=== PATIENT | male | born 1970 | race Caucasian/White ===

== ENCOUNTER 2022-07-27 07:59 | Inpatient (IN) | payer OTHER, SELFPAY ==
[2022-07-27] VITALS (28 sets, daily range): BP systolic 88–131; BP diastolic 55–92; PULSE 46–98; RESP 14–20; TEMP 36–37.1; O2SAT 94–100; BMI 21.4
--- NOTE | 2022-07-27 08:11 | RAD_ITS ---
STUDY: X-RAY CHEST REASON FOR EXAM: Male, 52 years old. Chest pain. Weakness. TECHNIQUE: Single AP portable view of the chest. COMPARISON: None. FINDINGS: EKG electrodes are seen. The lungs are clear and expanded. There is no demonstrated pleural abnormality. Normal size heart. Normal mediastinum and zi. Normal visualized pulmonary arteries. Normal visualized aortic arch and descending thoracic aorta. Normal visualized thoracic spine. Normal visualized ribs, clavicles, and shoulders. There is no demonstrated abnormality of the visualized soft tissue structures of the upper abdomen. RAD/Chest 1 View (Portable) IMPRESSION: Normal x-ray examination of the chest. Electronically Signed: Zheng Thomas MD at 8:29 EST ,
--- NOTE | 2022-07-27 08:14 | ED.VIS.CHEST ---
HPI History of Present Illness Chief Complaint: Weakness Narrative Narrative: 52-year-old male presenting with chest pain. He states this started while he was walking his dog. He has not had chest pain like this before. He describes it as chest pressure which radiates to his back between his shoulder blades and also down his bilateral arms with the left arm being more symptomatic than the right. He feels generally weak. He states he does not have any shortness of breath. No fever, chills, cough. He states he does not have any medical problems that he knows of but does not see a doctor regularly. Patient last was seen for a syncopal episode in 2014. At that point he states he was evaluated for cardiac source and states his work-up was normal. Patient does not believe his family has significant history of cardiac disease. Patient does report that he is a smoker. No history of DVT/PE. PFSH PFSH Home Medications Flonase 1 inh NASAL QHS 07/27/22 [History Last Taken Unknown] Allergy/AdvReac Type Severity Reaction Status Date / Time No Known Allergies Allergy Verified 07/27/22 08:04 Surgical History Hx of appendectomy Previous back surgery Social History Smoking Status: Current every day smoker tobacco type: cigarettes ROS ROS ED Constitutional Constitutional ED: Denies chills or fever(s) Eyes Eyes: Denies blurry vision or change in vision ENT ENT ED: Denies rhinorrhea or sore throat Cardiovascular Cardiovascular: Reports chest pain Respiratory/Chest Respiratory/Chest: Denies cough or dyspnea Gastrointestinal Gastrointestinal: Denies abdominal pain Genitourinary Genitourinary ED: Denies dysuria or hematuria Musculoskeletal Musculoskeletal: Denies arthralgias or back pain Integumentary Denies abscess or Abrasions Neurologic Neurologic: Denies headache(s) or paresthesias Psychiatric Psychiatric: Denies anxiety or depression EXAM Physical Exam Const Vital Signs: 07/27/22 08:00 07/27/22 08:05 07/27/22 08:03 Temperature 96.8 F L 96.8 F L Temperature Source Oral Oral Pulse Rate 54 L 54 L Respiratory Rate 16 16 Respiratory Effort Normal Non-Labored Respiratory Pattern Normal Blood Pressure 117/81 H 117/81 H Blood Pressure Mean 93 93 Pulse Ox 100 100 Oxygen Delivery Method Room Air Room Air 07/27/22 08:15 07/27/22 08:22 07/27/22 08:27 Temperature Temperature Source Pulse Rate 51 L 52 L Respiratory Rate Respiratory Effort Respiratory Pattern Blood Pressure 119/81 H 110/72 Blood Pressure Mean Pulse Ox 100 Oxygen Delivery Method Room Air 07/27/22 08:35 Temperature Temperature Source Pulse Rate 49 L Respiratory Rate Respiratory Effort Respiratory Pattern Blood Pressure 99/68 Blood Pressure Mean Pulse Ox Oxygen Delivery Method Positive well nourished General Appearance ED: NAD; Negative for pallor HEENT Reports TM's clear and moist mucous membranes Tympanic Membrane ED: Yes TM's clear Eyes PERRL and EOMs intact bilaterally Neck no lymphadenopathy Chest Wall inspection of chest normal and palpation of chest normal Resp normal respiratory effort and clear to auscultation bilaterally Auscultation: Negative for rales, rhonchi or wheezes Cardio regular rate and regular rhythm GI normal to inspection, nondistended, normoactive bowel sounds Extremity normal to inspection Neuro oriented x3 and CN's II-XII intact bilaterally Sensorium / Orientation: awake and alert Motor Exam: strength 5/5 throughout Psych mental status grossly normal Skin no rashes or lesions noted and no wounds General Skin Exam: Negative for jaundice or pallor Heart Score History: Highly Suspicious ECG: Normal Age: >45 - <65 years Risk Factors: 1 or 2 Risk Factors Troponin: </= Normal Limit Score: 4 MDM MDM MDM Narrative Medical decision making narrative: Patient presenting with chest pain which started prior to arrival. He states he was out walking his dog when this occurred. He is states he was diaphoretic and feels generally weak. The chest pressure radiates to his back and down his bilateral arms. EKG obtained on arrival shows sinus bradycardia with a ventricular rate of 56 bpm. There are nonspecific ST-T wave abnormalities. The EKG did interpret this as acute STEMI so I spoke with Dr. Lowe who will review the EKG. Patient had return of his pain while I was examining him and I obtained another EKG which was also sinus bradycardia with a ventricular rate of 58 bpm. This appears to be no significant change from his initial EKG. chest x-ray on my interpretation shows no acute cardiopulmonary process and the radiologist interprets this and agrees patient was given nitroglycerin trial to see if this helps his pain. Patient improvement of pain with nitroglycerin. CBC and BMP unremarkable. High-sensitivity troponin is 7. HEART score of 4. Impression: 1. Chest pain Lab Data Attestation: I reviewed the patient's lab results. Labs: Laboratory Results - last 24 hr 07/27/22 07/27/22 08:00 08:00 WBC 10.1 RBC 5.41 Hgb 16.8 H Hct 50.1 MCV 92.6 MCH 31.1 MCHC 33.5 RDW Std Deviation 45.3 H RDW Coeff of Heaven 13.3 Plt Count 335 MPV 10.0 Immature Gran % (Auto) 0.300 Neut % (Auto) 43.4 L Lymph % (Auto) 41.0 Andrews % (Auto) 8.2 Eos % (Auto) 6.4 H Baso % (Auto) 0.7 Absolute Neuts (auto) 4.4 Absolute Lymphs (auto) 4.14 Nucleated RBC % 0 Sodium 140 Potassium 3.9 Chloride 107 Carbon Dioxide 28.0 Anion Gap 5 BUN 13 Creatinine 1.19 Estim Creat Clear Calc 69.64 Est GFR (MDRD) Af Amer 82 Est GFR (MDRD) Non-Af 68 BUN/Creatinine Ratio 10.9 Glucose 143 H Calcium 9.7 Troponin I High Sens 7 Radiography Diagnostic Testing: Clinical Impression(s) from Imaging Studies Chest X-Ray 07/27/22 08:11 IMPRESSION: Normal x-ray examination of the chest. Electronically Signed: Zheng Thomas MD at 8:29 EST , Discharge Plan Triage Chief Complaint: Weakness ED Provider: Yo Nova Dx/Rx/DC Orders Prescriptions: No Action Flonase 1 inh NASAL QHS Primary Care Provider: URBAN MARTINES Referrals: Irvin Loo DO [Non-Staff] -
[2022-07-27] MEDS: Aspirin 81 MG TAB.CHEW 324 MG PO (08:17)
[2022-07-27 08:20] LABS: Absolute Lymphocyte Count 4.14 X10^3/uL (0.83-4.51); Absolute Neutrophil Count 4.4 X10^3/uL (2.0-7.7); Basophil# 0.07 X10^3/uL; Basophil% 0.7 % (0-1); Eosinophil# 0.65 X10^3/uL; Eosinophils% 6.4 % (0-5); Hematocrit 50.1 % (40-54); Hemoglobin 16.8 g/dL (13.0-16.5); Lymphocyte # 4.14 X10^3/ul (0.83-4.51); Mean Corp Hgb Conc 33.5 g/dL (32-36); Mean Corpuscular Hgb 31.1 pg (27.0-32.0); Mean Corpuscular Volume 92.6 fL (80-94); Monocyte# 0.83 X10^3/uL; Monocyte% 8.2 % (0-10); NRBC Flagged by Analyzer 0 % (0-5); Neutrophil # 4.37 X10^3/uL (2.7-7.7); Neutrophil % 43.4 % (47-70); Platelet Count 335 K/mm3 (150-450); RBC Distribution Width CV 13.3 % (11.6-14.6); RBC Distribution Width SD 45.3 fl (35.1-43.9); Red Blood Count 5.41 M/mm3 (4.6-6.2); White Blood Count 10.1 K/mm3 (4.4-11.0)
[2022-07-27] MEDS: Nitroglycerin SL (ED/IMG/CATH) 0.4 MG TABLET SL ×3 (08:22→08:35)
[2022-07-27 08:37] LABS: Anion Gap 5 (5-15); BUN 13 mg/dL (7-18); BUN/Creat Ratio 10.9 RATIO (10-20); Calcium,Total 9.7 mg/dL (8.5-10.1); Chloride 107 mmol/L (98-107); Creatinine, Serum 1.19 mg/dL (0.70-1.30); EST Glomerular Filtration Rate 68 mL/min (>60); Est Glom Filt Rate - Afr Amer 82 mL/min (>60); Estimated Creatinine Clearance 69.64 ml/min; Glucose 143 mg/dL (74-106); Potassium 3.9 mmol/L (3.5-5.1); Sodium Level 140 mmol/L (136-145); Troponin-I HS (w/2H Reflex) 7 pg/mL (3.0-78.0)
[2022-07-27] MEDS: 0.9% Normal Saline 1,000 ML 999 ML IV (08:50)
--- NOTE | 2022-07-27 08:50 | NURSING ---
DR GIVENS FOR DR ROSAS
--- NOTE | 2022-07-27 09:36 | ECHOD_ITS ---
Reason For Study: CHEST PAIN Procedure This was a 2D Doppler, Color Flow transthoracic echocardiogram. The study was technically difficult. Exam performed portable in ICU/CCU. Left Ventricle Normal size and thickness. The left ventricular ejection fraction is 45 %. Unable to assess diastolic function based on available data. Inferior and inferior septal hypokinesis. Right Ventricle Normal right ventricle. Atria The left and right atria are normal. Mitral Valve The mitral valve is structurally normal. No prolapse or stenosis seen. Tricuspid Valve Trivial tricuspid valve insufficiency. Normal pulmonary artery pressure. Aortic Valve Aortic sclerosis, no stenosis. Pulmonic Valve The pulmonic valve is not well visualized. Great Vessels Normal sized aortic root. Pericardium/Pleural No pericardial effusion. MMode/2D Measurements & Calculations LVIDd: 5.1 cm IVSd: 0.79 cm Ao root diam: 2.9 cm LVIDs: 4.2 cm LVPWd: 0.86 cm RVDd: 3.0 cm FS: 18.0 % LA dimension(2D): 3.1 cm Time Measurements MV dec time: 0.29 sec Doppler Measurements & Calculations MV E max marcio: 42.4 cm/sec Med Peak E' Marcio: 9.4 cm/sec Ao V2 max: 111.4 cm/sec MV A max marcio: 28.8 cm/sec E/E' med: 4.5 Ao max P.0 mmHg MV E/A: 1.5 LV V1 max: 66.6 cm/sec PA V2 max: 58.9 cm/sec TR max marcio: 196.6 cm/sec LV V1 max P.8 mmHg TR max P.5 mmHg ECHO/Echo Complete Interpretation Summary The left ventricular ejection fraction is 45-50%. Inferior and inferior septal hypokinesis. Ordering Physician: Roberta Ochoa Referring Physician: OTD Performed By: Trudy Wallace, JENNIE, RVT
[2022-07-27 09:44] LABS: Hemoglobin A1c 5.3 % (3.8-5.6)
[2022-07-27] MEDS: Lactated Ringers 1,000 ML 50 ML IV (09:55)
--- NOTE | 2022-07-27 10:09 | NURSING ---
This RN taking over care at this time
[2022-07-27 10:18] LABS: Reflex Troponin-HS? (from REC) Y
--- NOTE | 2022-07-27 10:20 | CASEMGMT ---
According to the [facility] website, the following are in-network tertiary facilities: [facility], [place], [place], [facility], [facility], and . Yusef DELGADILLO CM
[2022-07-27] MEDS: Nitroglycerin Infusion 250 ML 3 MG CONT INF (10:38)
[2022-07-27 10:44] LABS: CRP < 2.90 mg/L (0.0-3.0); Troponin-I HS 48 pg/mL (3.0-78.0)
--- NOTE | 2022-07-27 10:49 | NURSING ---
Gave report to Howard DELGADILLO in microbiological laboratory technician
--- NOTE | 2022-07-27 11:30 | HP.PCM.HOS_ITS ---
HPI - General General Date of Admission: 07/27/22 Date of Service: 07/27/22 Chief Complaint: Chest pain HPI Narrative SAMMY DEUTSCH, is a 52 M who presented to the emergency department [facility] on 07/27/2022 complaining of chest pain with profound weakness. The patient reported that he got up this morning and was feeling well. He got his dog outside and was walking him and developed severe pressure- like pain between his upper scapula that radiated into both arms. He reported he felt profoundly weak at the time that this happened but denied any nausea or vomiting as well as shortness of breath. He reported that he went inside and sat down and felt a little bit better and then he got up to take a shower which she did quickly however symptoms worsened with this. He then came to the emergency department. He has had ongoing chest pain in the emergency department and was given nitroglycerin x3 doses at which time his pain went from a 6 to a 1. By the time of my evaluation he was experiencing increased pain again and was started on nitro drip. He has no previous history of coronary disease. He had a syncopal episode in 2014 for which she had an echocardiogram and no abnormalities were found. He is never had a stress test or cardiac catheterization. He reported that his father had cardiac stents and feels that he was likely in his 50s when this happened as his dad at 72. He does use tobacco and smokes approximately 10 to 14 cigarettes daily. He does not see a physician regularly and is unclear if he has any hyperlipidemia or blood pressure issues. Vital signs at the time of presentation showed a temperature of 96.8, heart rate was 54, blood pressure is 117/81, respiratory rate was 16, oxygen saturation was 100% on room air. His CBC was overall unremarkable other than erythrocytosis with a hemoglobin of 16.8. His chemistry panel was unremarkable with a normal serum creatinine other than a glucose of 143. The patient had not eaten breakfast. His chest x-ray shows no acute cardiopulmonary findings or widening of the mediastinum. His EKG shows normal sinus rhythm with less 1 mm of elevation in the inferior leads and was sinus bradycardia with normal intervals. His initial troponin was found to be 7. In the emergency department he was given nitroglycerin and EKG was reviewed with the on-call STEMI doctor. They did not feel that this was a STEMI and recommended admission with cardiology follow-up. [facility] Medical History Tobacco abuse Medical History no medical history Home Medications fluticasone propionate 50 mcg/actuation nasal spray,suspension (Flonase Allergy Relief) 2 spray intranasal QHS allergies 07/27/22 [History Last Taken 07/26/22] ibuprofen 200 mg tablet (Advil) 200 mg PO Q6H PRN Pain 07/27/22 [History Last Taken 2 Days Ago ~07/25/22] Allergy/AdvReac Type Severity Reaction Status Date / Time No Known Allergies Allergy Verified 07/27/22 08:04 Family History Mother Lymphoma Leukemia Father Esophageal cancer CAD (coronary artery disease) Surgical History Hx of appendectomy Previous back surgery Social History (Updated 07/27/22 @ 11:[address] Roberta Ochoa DO) household members: spouse housing: house Smoking Status: Current every day smoker tobacco type: cigarettes Smoking packs per day: 0.5 Smoking cigarettes per day: 10.0 alcohol intake: never substance use type: does not use what type of physical activity do you participate in: none ROS Constitutional Constitutional: Reports weakness; Denies anorexia, change in weight, chills, fatigue, fever(s), malaise, night sweats or other Eyes Eyes: Denies blurry vision, change in eye color, change in vision, discharge from eye(s), double vision, erythema, eye pain, loss of vision or other ENT HEENT: Denies abnormal hearing, dysphagia, ear pain, epistaxis, headache(s), hearing loss, nasal congestion, nasal discharge, post nasal drip, sinus pressure, sore throat or other Cardiovascular Cardiovascular: Reports chest pain; Denies claudication, dyspnea on exertion, edema, lightheadedness, orthopnea, palpitations, paroxysmal nocturnal dyspnea, rapid heart rate, syncope or other Respiratory/Chest Respiratory/Chest: Denies cough, dyspnea, excessive phlegm production, hemoptysis, productive cough, shortness of breath at rest, shortness of breath with exertion, wheezing or other Gastrointestinal Gastrointestinal: Denies abdominal pain, coffee ground emesis, constipation, diarrhea, dyspepsia, hematemesis, hematochezia, loose stools, melena, nausea, vomiting or other Genitourinary Genitourinary: Denies burning urination, difficulty urinating, dysuria, hematuria, nocturia, urinary frequency, urinary hesitancy, urinary incontinence, urinary urgency or other Musculoskeletal Musculoskeletal: Reports other Details: Upper back pain/bilateral arm pain Neurologic Neurologic: Denies abnormal gait, abnormal speech, confusion, disequilibrium, dizziness, focal weakness, headache(s), numbness, paresthesias, seizure-like activity, seizures, syncope, tingling, tremor(s) or other Psychiatric Psychiatric: Denies anxiety, depression, homicidal ideation, suicidal ideation or other Endocrine Endocrinology: Denies change in body appearance, cold intolerance, excessive sweating, heat intolerance, polydipsia, polyuria or other Hematologic/Lymphatic Hematologic/Lymphatic: Denies anemia, easy bleeding, easy bruising, lymphadenopathy or other Vital Signs Vital Signs Vital Signs: 07/27/22 08:00 07/27/22 08:05 07/27/22 08:03 Temperature 96.8 F L 96.8 F L Temperature Source Oral Oral Pulse Rate 54 L 54 L Respiratory Rate 16 16 Respiratory Effort Normal Non-Labored Respiratory Depth Respiratory Pattern Normal Blood Pressure 117/81 H 117/81 H Blood Pressure Mean 93 93 Blood Pressure Source Blood Pressure Position Blood Pressure Location Pulse Ox 100 100 Oxygen Delivery Method Room Air Room Air Oxygen Flow Rate (L/min) 07/27/22 08:15 07/27/22 08:22 07/27/22 08:27 Temperature Temperature Source Pulse Rate 51 L 52 L Respiratory Rate Respiratory Effort Respiratory Depth Respiratory Pattern Blood Pressure 119/81 H 110/72 Blood Pressure Mean Blood Pressure Source Blood Pressure Position Blood Pressure Location Pulse Ox 100 Oxygen Delivery Method Room Air Oxygen Flow Rate (L/min) 07/27/22 08:35 07/27/22 09:12 07/27/22 09:52 Temperature 97.2 F L 97.3 F L Temperature Source Oral Oral Pulse Rate 49 L 47 L 63 Respiratory Rate 15 16 Respiratory Effort Respiratory Depth Respiratory Pattern Blood Pressure 99/68 94/77 109/71 Blood Pressure Mean 82 83 Blood Pressure Source Monitor Blood Pressure Position Semi-Fowlers Blood Pressure Location Right Arm Pulse Ox 100 100 Oxygen Delivery Method Room Air Nasal Cannula Oxygen Flow Rate (L/min) 2 07/27/22 09:33 07/27/22 10:38 07/27/22 10:00 Temperature Temperature Source Pulse Rate 66 61 Respiratory Rate Respiratory Effort Normal Non-Labored Respiratory Depth Normal Respiratory Pattern Normal Blood Pressure 109/60 Blood Pressure Mean 76 Blood Pressure Source Monitor Blood Pressure Position Semi-Fowlers Blood Pressure Location Left Arm Pulse Ox Oxygen Delivery Method Nasal Cannula Oxygen Flow Rate (L/min) 2 Weight Weight: 67.84 kg Body Mass Index (BMI) 21.4 Physical Exam Const alert, oriented x3 and well nourished Constitutional Narrative: Middle-aged white male sitting up in bed, appears slightly uncomfortable, at bedside, nontoxic appearing General Appearance: cooperative HEENT normocephalic, head/scalp atraumatic, hearing grossly normal bilaterally and moist oral mucous membranes HEENT Narrative: Mallampati 2, dentition is good, no thrush Eyes PERRL, EOMs intact bilaterally and conjunctivae normal Eyes Narrative: No scleral icterus Neck no lymphadenopathy, supple, no JVD and no carotid bruits Neck Narrative: Trachea midline, no thyroid enlargement Resp normal respiratory effort, no retractions, no use of accessory muscles and clear to auscultation bilaterally Resp Narrative: Diffusely diminished but clear Auscultation: Negative for crackles, rales, rhonchi or wheezes Cardio regular rate, regular rhythm, S1 normal heart sound, S2 normal heart sound, no murmurs, no rub, no gallops and no clicks GI normal to inspection, nondistended, normoactive bowel sounds, soft to palpation, non-tender and non-distended Extremity no clubbing, cyanosis or edema Extremity Narrative: 2+ pedal pulses, 2+ radial pulses and equal bilaterally Skin no rashes or lesions noted, no wounds, skin turgor normal, no jaundice, no petechiae and no mottling Neuro oriented x3, CN's II-XII intact bilaterally, moves all extremities and no focal motor deficits Speech: speech normal Psych affect normal Mood & Affect: anxious Results Lab / Micro Data Result Diagrams: 07/27/22 08:00 07/27/22 08:00 Labs: Laboratory Results - last 24 hr 07/27/22 08:00: WBC 10.1, RBC 5.41, Hgb 16.8 H, Hct 50.1, MCV 92.6, MCH 31.1, MCHC 33.5, RDW Std Deviation 45.3 H, RDW Coeff of Heaven 13.3, Plt Count 335, MPV 10.0, Immature Gran % (Auto) 0.300, Neut % (Auto) 43.4 L, Lymph % (Auto) 41.0, Newberry % (Auto) 8.2, Eos % (Auto) 6.4 H, Baso % (Auto) 0.7, Absolute Neuts (auto) 4.4, Absolute Lymphs (auto) 4.14, Nucleated RBC % 0 07/27/22 08:00: Sodium 140, Potassium 3.9, Chloride 107, Carbon Dioxide 28.0, Anion Gap 5, BUN 13, Creatinine 1.19, Estim Creat Clear Calc 69.64, Est GFR (MDRD) Af Amer 82, Est GFR (MDRD) Non-Af 68, BUN/Creatinine Ratio 10.9, Glucose 143 H, Calcium 9.7, Troponin I High Sens 7 07/27/22 08:00: Hemoglobin A1c 5.3 07/27/22 10:08: Troponin I High Sens 48, C-React Prot Ext Range < 2.90 Radiology Impression Chest X-Ray 07/27/22 08:11 IMPRESSION: Normal x-ray examination of the chest. Electronically Signed: Zheng Thomas MD at 8:29 EST , Assessment & Plan Assessment/Plan (1) Chest pain: (2) Erythrocytosis: (3) Hyperglycemia: PLAN: Plan Unstable angina -Patient with ongoing chest pain -Cycle cardiac enzymes -Start nitro drip -Cardiac catheterization per discussion with cardiology today -Hold off on beta-natasha as blood pressures are borderline at this time and heart rate is bradycardic -Start high intensity dose statin -Aspirin daily 81 mg--> patient was loaded with 324 in the emergency department -Check echocardiogram -Check hemoglobin A1c -Cardiology consultation--> Case discussed with Dr. Flannery Erythrocytosis -Baseline unclear however patient does not appear to be dehydrated -Likely related to his tobacco abuse -Repeat CBC in a.m. Hyperglycemia -Blood sugar on admission was 143 and patient was reportedly fasting -Check hemoglobin A1c Tobacco abuse -Recommend cessation -Nicotine replacement if patient desires DVT prophylaxis -Lovenox CODE STATUS -Full code Charges/Coding Visit Charges Inpatient E&M: 91013 Init Hosp L3
--- NOTE | 2022-07-27 12:09 | NURSING ---
Called report to Conor DELGADILLO in ICU
[2022-07-27] MEDS: 0.9% Normal Saline 1,000 ML 150 ML IV (13:16)
--- NOTE | 2022-07-27 13:21 | CL.D_ITS ---
Patient Name: SAMMY DEUTSCH Study Date: 07/27/2022 Performing: Jesus Flannery MD Ht: 70 inches 177.8 cm : 1970 Wt: 149.56 lbs 67.84 kg Age: 52 Gender: male BSA: 1.84 PROCEDURE(S) PERFORMED DC01-(56965)LHC/COR/LV IC17-(40809)CORONARY MECHANICAL THROMBECTOMY (ANGIOJET,PENUMBRA) IC12-(53615/C9600)LATRICE W/WO PTCA, SINGLE CORONARY ARTERY CLINICAL PROFILE AND INDICATIONS Indications: ACS <= 24 hrs, Suspected CAD Heart Failure: None Stress/Imaging Stress/Image Study Performed: No Angina Classification Anginal Classification w/in 2 Weeks: CCS IV CAD Presentations: Unstable angina. Unstable angina. 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 RECOMMENDATIONS ASA Indefinitely Referred for immediate PCI DESCRIPTION OF PROCEDURE The patient arrived to the procedure lab. The risks and benefits of the procedure as well as a full description of our services here and current unavailability of surgical backup were fully explained to the patient and/or their significant other prior to the catheterization. The Timeout was completed, verifying the correct patient and procedure. The patient's procedural site was prepped and draped in the usual fashion. Local anesthetic was given subcutaneously to right radial region with Lidocaine 2%. Using a modified Seldinger technique, arterial access was obtained via the right radial artery, a 6Fr sheath was inserted. Left Coronary Artery selective angiography was performed in multiple views using a 5 Fr. 4.0 Oaks catheter. Right Coronary Artery selective angiography was then performed in multiple views using a 5 Fr. 4.0 Oaks catheter. Left Ventriculography was performed in ALMONTE projection using a 5 Fr. Pigtail catheter. LV to AO pullback pressures were then recorded.The arterial sheath was pulled and a TR Band was applied for hemostasis CORONARY ANGIOGRAPHY DOMINANCE: Right Dominant LEFT HEART ASSESSMENT Left Ventricular Ejection Fraction: by LV Gram 45 % Inferior Mid Akinesis. Inferior Basal Hypokinesis - Moderate Depressed Left Ventricular systolic function LEFT MAIN: Angiographically normal LEFT ANTERIOR DESCENDING ARTERY: Moderate calcification DIAGONAL 1: Proximal - Mild luminal irregularities DIAGONAL 2: Proximal - 60 % Stenosis CIRCUMFLEX ARTERY: Mild luminal irregularities RIGHT CORONARY ARTERY: MID RCA: is occluded COLLATERAL FLOW: Collateral flow from Left to Right COMPLICATIONS PROCEDURE MEDICATIONS Fentanyl 50 mcg IV Versed 1 mg IV Versed 1 mg IV Oxygen: 2 L/min via nasal cannula Oxygen: 15 L/min via non-rebreather mask Oxygen: 10 L/min via simple mask Oxygen: 4 L/min via nasal cannula Oxygen: 2 L/min via nasal cannula Atropine 1mg/10ml 1 amp 07/27/2022 11:44:37 Amiodarone 150 mg/min 07/27/2022 11:47:16 Adenosine 48 mcg IC 07/27/2022 12:12:05 Brilinta 180 mg PO @ 07/27/2022 12:21:54 Epinephrine 1mg/10ml 1 amp 07/27/2022 11:44:37 Heparin given IA 07/27/2022 11:16:46 Heparin 6000 unit(s) IV 07/27/2022 11:33:25 Heparin 2000 unit(s) IV 07/27/2022 11:50:44 Nitro glycerin 25mg / 250ml D5W @ 5 mcg/min discontinued upon arrival to the label coder 07/27/2022 11:03:51 Nitro 50 mcg IC 07/27/2022 12:11:13 Zofran 4 mg IV 07/27/2022 11:46:17 IV Bolus: .9 NaCl 600 ml total 07/27/2022 12:11:43 IV Fluids: .9 NaCl increased to open ml/hr 07/27/2022 11:47:35 SUMMARY OF HEMODYNAMIC DATA Time AIR REST ECG 10:55:36 Art 144/62 (83) 11:13:22 AO 105/67 (85) SA 11:17:36 LV 105/15, 25 11:23:03 LV 105/15, 24 11:23:09 LV 96/16, 25 11:24:05 LVp 105/14, 25 11:24:12 AOp 103/64 (81) 11:24:18 AIR REST 12:32:06 Signed By Jesus Flannery MD On 07/27/2022 13:21:23 Jesus Flannery MD
--- NOTE | 2022-07-27 13:36 | CRPHASE1 ---
Patient Communication PHII Cardiac Rehab Discussed with Patient:: Yes Guide to Cardiac Rehab Given to Patient:: Yes Cardiac Rehab Facility Choice List Given to Patient:: Yes Choice Program [facility] CR PHII:: Communication Given to CR Choice Program Other:: Communication Given to CR Ash Kier Boiler:: Priya Lwoe Phase II Cardiac Rehab:: Yes Sessions:: 36 sessions - 3 days/wk, 12 weeks Cardiac Rehabilitation Info Cardiac Rehabilitation Program Information: Cardiac Rehabilitation is important for patients like you who are recovering from a heart problem. Cardiac rehabilitation programs are recognized as integral to the continued care of the patient with coronary heart disease. The cardiac rehabilitation program is designed to optimize a patient's physical, psychological, and social functioning. Health healthcare applications analyst work in cardiac rehabilitation programs and assist you with getting the treatments you need to get stronger and healthier - like exercise, healthy eating habits, and medications. Cardiac rehabilitation has been show to help people with heart problems live longer and have better life enjoyment than people who do not go to cardiac rehabilitation. Please contact the Cardiac Rehabilitation Program at [facility] at in two weeks if you have not heard from them.
--- NOTE | 2022-07-27 13:37 | CRPH1.INSTRU ---
General Education CAD and cardiac anatomy and function:: Patient communicates acknowledgment Explanation of diagnoses and procedures:: Patient communicates acknowledgment Sign/Symptoms of NC:: Patient communicates acknowledgment Antiplatelet therapy: Patient communicates acknowledgment Smoking Patient Nicotine/Smoking Risk Factors Are:: Cigarettes Recommendations Include:: Smoking cessation strategies/Smoking packet, Participation in a smoking cessation program, Previous smoker; encourage continued cessation Nicotine/Smoking Response Code:: Patient communicates acknowledgment Dyslipidemia Recommendations Include:: Lipid profile not available, Reviewed NCEP/ATP guidelines, Therapeutic Lifestyle Change dietary guidelines Dyslipidemia Response Code:: Patient communicates acknowledgment Overweight/Obesity Patient Overweight/Obesity Risk Factors Are:: BMI Normal [18-25 & < 65 years old] Recommendations Include:: Weight loss of 5-10%, Reduced calorie diet, Exercise 5-7 times/week Overweight/Obesity:: Patient communicates acknowledgment Hypertension Patient Hypertension Risk Factors Are:: No documented hx of HTN Diabetes Patient Diabetes Risk Factors Are:: No documented hx of diabetes Metabolic Syndrome Recommendations Include:: Does not meet criteria Sedentary Patient Sedentary Risk Factors Are:: Lack of regular exercise Recommendations Include:: Aerobic exercise 5-7 times/week for 20-30 minutes continuously, Benefits of regular exercise, Discussed home walking program, Monitored Outpatient Cardiac Rehab Sedentary Response Code:: Patient communicates acknowledgment Stress Recommendations Include:: Identification of stressors, and assessment of coping skills, Stress management techniques Stress Response Code:: Patient communicates acknowledgment
--- NOTE | 2022-07-27 13:52 | CON.PCM.CA_ITS ---
Assessment & Plan Assessment/Plan (1) Chest pain: PLAN: Patient presented with recurrent chest discomfort. The etiology was unclear at the time of the call. However due to the persistent chest discomfort it was decided to bring him to the cardiac catheterization lab. It demonstrated the following. Normal left main coronary artery. Left anterior descending artery with no high-grade obstruction noted but mid segment intramyocardial bridging was noted. Left circumflex artery with no high-grade stenosis. Dominant right coronary artery which is totally occluded in the midsegment with [id number] collaterals. Left ventricular systolic dysfunction with inferior wall hypokinesis noted. Based on the above angiographic findings the patient was referred and recommended to have a PCI of the right coronary artery. Thank you for allowing me to participate in the care of your patient. Please don't hesitate to call if any issues arise. HPI Consult Data Date of Consult: 07/27/22 HPI Narrative HPI Narrative: SAMMY DEUTSCH, is a 52 M who presents to the emergency department [facility] on 07/27/2022 complaining of chest pain with profound weakness.? The patient reported that he got up this morning and was feeling well.? He got his dog outside and was walking him and developed severe pressure- like pain between his upper scapula that radiated into both arms.? He reported he felt profoundly weak at the time that this happened but denied any nausea or vomiting as well as shortness of breath.? He reported that he went inside and sat down and felt a little bit better and then he got up to take a shower which she did quickly however symptoms worsened with this.? He then came to the emergency department.? He has had ongoing chest pain in the emergency department and was given nitroglycerin x3 doses at which time his pain went from a 6 to a 1.? By the time of my evaluation he was experiencing increased pain again and was started on nitro drip.? His initial troponins were noted to be normal. I was called for further evaluation and management. His EKG was evaluated which demonstrated nonspecific changes. [facility] Medical History Tobacco abuse Medical History no medical history Home Medications fluticasone propionate 50 mcg/actuation nasal spray,suspension (Flonase Allergy Relief) 2 spray intranasal QHS allergies 07/27/22 [History Last Taken 07/26/22] ibuprofen 200 mg tablet (Advil) 200 mg PO Q6H PRN Pain 07/27/22 [History Last Taken 2 Days Ago ~07/25/22] Allergy/AdvReac Type Severity Reaction Status Date / Time No Known Allergies Allergy Verified 07/27/22 08:04 Family History Mother Lymphoma Leukemia Father Esophageal cancer CAD (coronary artery disease) Surgical History Hx of appendectomy Previous back surgery Social History household members: spouse housing: house Smoking Status: Current every day smoker tobacco type: cigarettes Smoking packs per day: 0.5 Smoking cigarettes per day: 10.0 alcohol intake: never substance use type: does not use what type of physical activity do you participate in: none ROS Constitutional Constitutional: Denies fever(s) or weight loss Eyes Eyes: Reports systems reviewed and no addt'l complaints, except as documented ENT HEENT: Reports systems reviewed and no addt'l complaints, except as documented Cardiovascular Cardiovascular: Denies chest pain at rest, chest pain with activity, dyspnea at rest, dyspnea on exertion, edema, palpitations or paroxysmal nocturnal dyspnea Respiratory/Chest Respiratory/Chest: Denies dyspnea on exertion, productive cough, shortness of breath at rest or shortness of breath with exertion Gastrointestinal Gastrointestinal: Denies change in bowel habits, nausea, vomiting or weight ch anges Genitourinary Genitourinary: Denies difficulty urinating Musculoskeletal Musculoskeletal: Denies joint stiffness or muscle weakness Integumentary Integumentary: Denies lesions Neurologic Neurologic: Denies dizziness or syncope Psychiatric Psychiatric: Denies anxiety Endocrine Endocrinology: Denies excessive sweating or fatigue Hematologic/Lymphatic Hematologic/Lymphatic: Denies anemia Allergic/Immunologic Allergic/Immunologic: Denies seasonal rhinorrhea Physical Exam Const alert, oriented x3 and no apparent distress General Appearance: cooperative HEENT hearing grossly normal bilaterally Head and Scalp: atraumatic Eyes EOMs intact bilaterally Neck General: normal visual inspection Chest inspection of chest normal and palpation of chest normal Resp normal respiratory effort Auscultation: clear to auscultation bilaterally Cardio regular rate, regular rhythm, S1 normal heart sound and S2 normal heart sound Jugular Venous Distention: JVD GI normal to inspection, nondistended, normoactive bowel sounds Extremity normal capillary refill and no pedal edema Peripheral Pulses: Yes pulses 2+ throughout and femoral pulses present Skin no rashes or lesions noted Neuro oriented x3 and CN's II-XII intact bilaterally Psych Appearance: grossly normal and appropriate Risk Stratification Risk Stratification Applicable: Yes Age >/= 65: No >/= 3 CAD Risk Factors (HTN, HLD, DM, family hx of CAD, or current smoker): No Aspirin Use in the Past 7 Days: No Severe Angina (>/= episodes in 24 hours): Yes EKG ST Changes >/= 0.5mm: No Positive Cardiac Marker: No CHATO Risk Stratification Score: 1 CHATO % Risk: 5% Risk Objective Data Vital Signs: Vital Signs Temp Pulse Resp BP Pulse Ox O2 Del Method O2 Flow Rate 97.1 F L 86 16 95/68 99 Room Air 2 07/27/22 12:45 07/27/22 12:45 07/27/22 12:45 07/27/22 12:45 07/27/22 12:45 07/27/22 12:45 07/27/22 12:30 Oxygen Flow Rate (L/min) 2 Oxygen Delivery Method Room Air Weight: 149 lb 9 oz Body Mass Index (BMI) 21.4 Intake & Output: Intake and Output for Last 24 Hours 07/25/22 07/26/22 07/27/22 23:59 23:59 23:59 Intake Total 1000 / 1000 Balance 1000 / 1000 Lab / Micro Data Result Diagrams: 07/27/22 08:00 07/27/22 08:00 Labs: Laboratory Results - last 24 hr 07/27/22 08:00: WBC 10.1, RBC 5.41, Hgb 16.8 H, Hct 50.1, MCV 92.6, MCH 31.1, MCHC 33.5, RDW Std Deviation 45.3 H, RDW Coeff of Heaven 13.3, Plt Count 335, MPV 10.0, Immature Gran % (Auto) 0.300, Neut % (Auto) 43.4 L, Lymph % (Auto) 41.0, [place] % (Auto) 8.2, Eos % (Auto) 6.4 H, Baso % (Auto) 0.7, Absolute Neuts (auto) 4.4, Absolute Lymphs (auto) 4.14, Nucleated RBC % 0 07/27/22 08:00: Sodium 140, Potassium 3.9, Chloride 107, Carbon Dioxide 28.0, Anion Gap 5, BUN 13, Creatinine 1.19, Estim Creat Clear Calc 69.64, Est GFR (MDRD) Af Amer 82, Est GFR (MDRD) Non-Af 68, BUN/Creatinine Ratio 10.9, Glucose 143 H, Calcium 9.7, Troponin I High Sens 7 07/27/22 08:00: Hemoglobin A1c 5.3 07/27/22 10:08: Troponin I High Sens 48, C-React Prot Ext Range < 2.90 Cardiology Labs/Tests 07/27/22 08:00: WBC 10.1, RBC 5.41, Hgb 16.8 H, Hct 50.1, MCV 92.6, MCH 31.1, MCHC 33.5, Plt Count 335, MPV 10.0, Immature Gran % (Auto) 0.300, Neut % (Auto) 43.4 L, Lymph % (Auto) 41.0, [place] % (Auto) 8.2, Eos % (Auto) 6.4 H, Baso % (Auto) 0.7, Absolute Neuts (auto) 4.4, Nucleated RBC % 0 07/27/22 08:00: Sodium 140, Potassium 3.9, Chloride 107, Carbon Dioxide 28.0, Anion Gap 5, BUN 13, Creatinine 1.19, Est GFR (MDRD) Af Amer 82, Est GFR (MDRD) Non-Af 68, BUN/Creatinine Ratio 10.9, Glucose 143 H, Calcium 9.7 07/27/22 08:00: Hemoglobin A1c 5.3 Rhythm: EKG: ECHO: Stress Test: Cardiac Cath: PCI: CT Surgery: Holter monitor: EPS: PPM: CXR: Chest CT Scan: Radiography Diagnostic Testing: Radiology Impression Chest X-Ray 07/27/22 08:11 IMPRESSION: Normal x-ray examination of the chest. Electronically Signed: Zheng Thomas MD at 8:29 EST ,
--- NOTE | 2022-07-27 14:25 | CHAPLAIN ---
Type of Pastoral Visit _x__ Initial Visit ___ Follow-up Visit ___ On-call Visit ___ General Patient Visit ___ Spiritual Assessment ___ Family Conference ___ Bereavement ___ Rapid Response ___ Code Blue ___ Other (describe below) Pastoral Care Referral From _x__ Patient ___ Family _x__ Nurse ___ Physician ___ Beater Operator ___ Private Branch Exchange Repairer ___ Other (describe below) Sacrament/Intervention _x__ Active listening ___ Anointing ___ Muslim ___ Bereavement ___ Communion _x__ Venus exploration ___ ___ Life review _x__ Prayer ___ Reconciliation ___ Sacrament of Sick _x__ Supportive presence ___ Wedding ___ Other (describe below) Pastoral Comments patient eager to tell his story of getting help so quickly today for a heart attack and eventual code blue; spouse is at bedside and tearful as she comes to realize how serious the situation was and how he came through the interventions and surgery; some life review given; some credit given to God for His presence and care; patient has not been in [place] since before COVID but both are aware today of God's presence in their lives; pt and spouse welcome prayer and presence given
[2022-07-27 17:27] LABS: Anion Gap 5 (5-15); BUN 12 mg/dL (7-18); BUN/Creat Ratio 14.2 RATIO (10-20); Calcium,Total 8.7 mg/dL (8.5-10.1); Chloride 111 mmol/L (98-107); Creatinine, Serum 0.85 mg/dL (0.70-1.30); EST Glomerular Filtration Rate 101 mL/min (>60); Est Glom Filt Rate - Afr Amer 122 mL/min (>60); Estimated Creatinine Clearance 97.55 ml/min; Glucose 105 mg/dL (74-106); Magnesium 2.1 mg/dL (1.6-2.6); Phosphorus 2.9 mg/dL (2.5-4.9); Potassium 4.5 mmol/L (3.5-5.1); Sodium Level 141 mmol/L (136-145)
[2022-07-27 17:45] LABS: ACT Activated Clotting Time 271 sec (74-137)
[2022-07-27 17:47] LABS: ACT Activated Clotting Time 329 sec (74-137)
[2022-07-27] MEDS: Acetaminophen 325 MG Tablet 650 MG PO (20:18)
[2022-07-27] MEDS: Nicotine Polacrilex 2 MG GUM PO (20:19)
[2022-07-27] MEDS: Atorvastatin Calcium 80 MG Tablet PO (21:08)
[2022-07-27] MEDS: Clopidogrel Bisulfate 300 MG Tablet PO (21:09)
[2022-07-28] VITALS (26 sets, daily range): BP systolic 88–121; BP diastolic 51–77; PULSE 43–69; RESP 12–21; TEMP 36.6–37.1; O2SAT 94–100
[2022-07-28] MEDS: Nicotine Polacrilex 2 MG GUM PO ×4 (00:15→19:45)
[2022-07-28] MEDS: 0.9% Saline Lock 10 ML Syringe IV (01:17)
[2022-07-28] MEDS: Metoclopramide 10 MG/2 ML Vial 5 MG IV (01:17)
[2022-07-28 03:51] LABS: Absolute Lymphocyte Count 2.44 X10^3/uL (0.83-4.51); Absolute Neutrophil Count 7.3 X10^3/uL (2.0-7.7); Basophil# 0.05 X10^3/uL; Basophil% 0.5 % (0-1); Eosinophil# 0.32 X10^3/uL; Eosinophils% 2.9 % (0-5); Hematocrit 42.3 % (40-54); Hemoglobin 13.7 g/dL (13.0-16.5); Lymphocyte # 2.44 X10^3/ul (0.83-4.51); Lymphocyte % 22.2 % (19-41); Mean Corp Hgb Conc 32.4 g/dL (32-36); Mean Corpuscular Hgb 30.8 pg (27.0-32.0); Mean Corpuscular Volume 95.1 fL (80-94); Mean Platelet Vol. 10.2 fl (6.2-12.0); Monocyte# 0.86 X10^3/uL; Monocyte% 7.8 % (0-10); NRBC Flagged by Analyzer 0 % (0-5); Neutrophil % 66.2 % (47-70); Platelet Count 233 K/mm3 (150-450); RBC Distribution Width CV 13.5 % (11.6-14.6); RBC Distribution Width SD 47.4 fl (35.1-43.9); Red Blood Count 4.45 M/mm3 (4.6-6.2)
[2022-07-28 04:13] LABS: BUN 13 mg/dL (7-18); Creatinine, Serum 0.94 mg/dL (0.70-1.30); Glucose 109 mg/dL (74-106)
[2022-07-28 04:14] LABS: ALB/GLOB Ratio 1.1 RATIO (0.9-2.4); AST(SGOT) 287 U/L (15-37); Alanine Aminotransfer ALT/SGPT 71 U/L (16-61); Albumin, Serum 3.1 g/dL (3.2-5.0); Alkaline Phosphatase 64 U/L (45-117); Anion Gap 6 (5-15); BUN/Creat Ratio 13.8 RATIO (10-20); Calcium,Total 8.5 mg/dL (8.5-10.1); Chloride 111 mmol/L (98-107); Cholesterol 131 mg/dL (200); EST Glomerular Filtration Rate 89 mL/min (>60); Est Glom Filt Rate - Afr Amer 108 mL/min (>60); Estimated Creatinine Clearance 88.21 ml/min; Globulin 2.7 g/dL (2.2-4.2); High Density Lipoprotein 40 mg/dL; Magnesium 2.1 mg/dL (1.6-2.6); Phosphorus 2.2 mg/dL (2.5-4.9); Potassium 4.1 mmol/L (3.5-5.1); Protein, Total 5.8 g/dL (6.4-8.2); Sodium Level 139 mmol/L (136-145); Thyroid Stim Hormone (TSH) 1.96 uIU/mL (0.358-3.74); Triglycerides 94 mg/dL; Very Low Density Lipoprotein 19 mg/dL (5-40)
[2022-07-28] MEDS: Acetaminophen 325 MG Tablet 650 MG PO ×3 (07:34→19:44)
[2022-07-28] MEDS: Aspirin E.C. 81 MG Tablet PO (09:48)
[2022-07-28] MEDS: Enoxaparin 40 MG/0.4 ML Syringe SC (09:49)
[2022-07-28] MEDS: Lisinopril 2.5 MG Tablet PO (09:49)
[2022-07-28] MEDS: Clopidogrel Bisulfate 75 MG Tablet PO (09:49)
--- NOTE | 2022-07-28 10:18 | PCM.PN.CARD ---
Subjective Subjective Doing good. Ambulating. Denies any complaints. Objective Data Vital Signs: Vital Signs Temp Pulse Resp BP Pulse Ox O2 Del Method O2 Flow Rate 98.8 F 46 L 12 101/63 99 Room Air 2 07/27/22 19:00 07/28/22 09:49 07/28/22 07:00 07/28/22 09:49 07/28/22 07:00 07/28/22 07:00 07/27/22 12:30 Oxygen Flow Rate (L/min) 2 Oxygen Delivery Method Room Air Weight: 156 lb 12.8 oz Body Mass Index (BMI) 21.4 Intake & Output: Intake and Output for Last 24 Hours 07/26/22 07/27/22 07/28/22 23:59 23:59 23:59 Intake Total 2025.45 / 2025.45 1000 / 1000 Output Total 375 / 375 Balance 2025.45 / 1651.45 625 / 625 Lab / Micro Data Result Diagrams: 07/28/22 03:44 07/28/22 03:44 Labs: Laboratory Results - last 24 hr 07/27/22 10:08: Troponin I High Sens 48, C-React Prot Ext Range < 2.90 07/27/22 11:40: Activated Clotting Time 271 H 07/27/22 12:15: Activated Clotting Time 329 H 07/27/22 17:05: Sodium 141, Potassium 4.5, Chloride 111 H, Carbon Dioxide 25.0, Anion Gap 5, BUN 12, Creatinine 0.85, Estim Creat Clear Calc 97.55, Est GFR (MDRD) Af Amer 122, Est GFR (MDRD) Non-Af 101, BUN/Creatinine Ratio 14.2, Glucose 105, Calcium 8.7, Phosphorus 2.9, Magnesium 2.1 07/28/22 03:44: WBC 11.0, RBC 4.45 L, Hgb 13.7, Hct 42.3, MCV 95.1 H, MCH 30.8, MCHC 32.4, RDW Std Deviation 47.4 H, RDW Coeff of Heaven 13.5, Plt Count 233, MPV 10.2, Immature Gran % (Auto) 0.400, Neut % (Auto) 66.2, Lymph % (Auto) 22.2, [place] % (Auto) 7.8, Eos % (Auto) 2.9, Baso % (Auto) 0.5, Absolute Neuts (auto) 7.3, Absolute Lymphs (auto) 2.44, Nucleated RBC % 0 07/28/22 03:44: Sodium 139, Potassium 4.1, Chloride 111 H, Carbon Dioxide 22.0, Anion Gap 6, BUN 13, Creatinine 0.94, Estim Creat Clear Calc 88.21, Est GFR (MDRD) Af Amer 108, Est GFR (MDRD) Non-Af 89, BUN/Creatinine Ratio 13.8, Glucose 109 H, Calcium 8.5, Phosphorus 2.2 L, Magnesium 2.1, Total Bilirubin 0.50, AST 287 H, ALT 71 H, Alkaline Phosphatase 64, Total Protein 5.8 L, Albumin 3.1 L, Globulin 2.7, Albumin/Globulin Ratio 1.1, Triglycerides 94, Cholesterol 131, LDL Cholesterol 72, VLDL Cholesterol 19, HDL Cholesterol 40, TSH 1.96 07/28/22 03:44: Troponin [place] 27299 H* Cardiology Labs/Tests 07/27/22 17:05: Sodium 141, Potassium 4.5, Chloride 111 H, Carbon Dioxide 25.0, Anion Gap 5, BUN 12, Creatinine 0.85, Est GFR (MDRD) Af Amer 122, Est GFR (MDRD) Non-Af 101, BUN/Creatinine Ratio 14.2, Glucose 105, Calcium 8.7, Phosphorus 2.9, Magnesium 2.1 07/28/22 03:44: WBC 11.0, RBC 4.45 L, Hgb 13.7, Hct 42.3, MCV 95.1 H, MCH 30.8, MCHC 32.4, Plt Count 233, MPV 10.2, Immature Gran % (Auto) 0.400, Neut % (Auto) 66.2, Lymph % (Auto) 22.2, [place] % (Auto) 7.8, Eos % (Auto) 2.9, Baso % (Auto) 0.5, Absolute Neuts (auto) 7.3, Nucleated RBC % 0 07/28/22 03:44: Sodium 139, Potassium 4.1, Chloride 111 H, Carbon Dioxide 22.0, Anion Gap 6, BUN 13, Creatinine 0.94, Est GFR (MDRD) Af Amer 108, Est GFR (MDRD) Non-Af 89, BUN/Creatinine Ratio 13.8, Glucose 109 H, Calcium 8.5, Phosphorus 2.2 L, Magnesium 2.1, Total Bilirubin 0.50, Triglycerides 94, Cholesterol 131, LDL Cholesterol 72, VLDL Cholesterol 19, HDL Cholesterol 40 Rhythm: EKG: ECHO: Stress Test: Cardiac Cath: PCI: CT Surgery: Holter monitor: EPS: PPM: CXR: Chest CT Scan: Physical Exam Narrative Comfortable. Right radial pulse 3+. Heart sounds 1 and 2 are normal. Chest clear to auscultation bilaterally. No ankle edema. Alert oriented x3. Assessment & Plan Assessment/Plan (1) NSTEMI (non-ST elevated myocardial infarction): PLAN: Stable. Asymptomatic. Continue aspirin lifelong. Continue aspirin lifelong. Clopidogrel for at least 1 year. Check 2D echocardiogram with Doppler. (2) CAD (coronary artery disease): PLAN: See #1 above. (3) Bradycardia: PLAN: Discontinue metoprolol. PLAN: Plan May transfer to stepdown unit. Likely discharge home in the morning.
--- NOTE | 2022-07-28 10:20 | CASEMGMT ---
RN CM STONE PROCESSING MACHINE OPERATOR CM to room to meet with patient for initial transition planning/care coordination assessment. RN JOSE introduced self and role at [facility]. Pt voices understanding and consents to assessment at this time. Pt resting in bed in no distress at this time. , Joselyn, @ bedside. Pt is A/O at this time and answers all questions appropriately. Care providers, pharmacy, and demographics verified/updated at this time. PCP: Dr Razo Specialists: none Preferred Pharmacy:[facility] Insurance: [employer] Prescription Benefit: yes Living Will/HPOA: States does not have LW or HCPOA . Provided information but states does not want to talk with SW at this time to complete paperwork. Given Social Service rac card with number to call if chooses in the future to utilize [facility] social work for advanced directive completion. LNOK: Joselyn. Living Arrangements: Lives w/ in [facility]. [facility]. Small threshold step to enter. Independent. Works full-time Transportation: Pt states drives self and states no transportation concerns at this time. also drives DME: Denies using any DME and denies needs. HHC/SNF: No hx of either. No needs identified. Pt wishes to return home and states has no concerns with going home at time of discharge. CM to follow for any discharge planning/needs. Pt and voice no concerns/needs at this time. Advised them to ask for CM if any questions/concerns/needs arise. They voice understanding. PLAN: Home Emma MARCELINO RN, CM
--- NOTE | 2022-07-28 10:45 | PCM.PN.HOSP ---
Subjective Subjective Salon Receptionist events noted. Patient is complaining of some chest soreness related to the CPR he received yesterday however he states the pain he was experiencing on arrival yesterday has completely abated and he is feeling much better overall. Objective Data Objective Data Vital Signs: Vital Signs Temp Pulse Resp BP Pulse Ox O2 Del Method O2 Flow Rate 97.9 F 46 L 16 93/63 98 Room Air 2 07/28/22 08:00 07/28/22 10:00 07/28/22 10:00 07/28/22 10:00 07/28/22 10:00 07/28/22 10:00 07/27/22 12:30 Oxygen Flow Rate (L/min) 2 Oxygen Delivery Method Room Air Weight: 71.123 kg Body Mass Index (BMI) 21.4 Intake & Output: Intake and Output for Last 24 Hours 07/26/22 07/27/22 07/28/22 23:59 23:59 23:59 Intake Total 2026.45 / 2026.45 1000 / 1000 Output Total 375 / 375 Balance 2025.45 / 1651.45 625 / 625 Lab / Micro Data Result Diagrams: 07/28/22 03:44 07/28/22 03:44 Labs: Laboratory Results - last 24 hr 07/27/22 11:40: Activated Clotting Time 271 H 07/27/22 12:15: Activated Clotting Time 329 H 07/27/22 17:05: Sodium 141, Potassium 4.5, Chloride 111 H, Carbon Dioxide 25.0, Anion Gap 5, BUN 12, Creatinine 0.85, Estim Creat Clear Calc 97.55, Est GFR (MDRD) Af Amer 122, Est GFR (MDRD) Non-Af 101, BUN/Creatinine Ratio 14.2, Glucose 105, Calcium 8.7, Phosphorus 2.9, Magnesium 2.1 07/28/22 03:44: WBC 11.0, RBC 4.45 L, Hgb 13.7, Hct 42.3, MCV 95.1 H, MCH 30.8, MCHC 32.4, RDW Std Deviation 47.4 H, RDW Coeff of Heaven 13.5, Plt Count 233, MPV 10.2, Immature Gran % (Auto) 0.400, Neut % (Auto) 66.2, Lymph % (Auto) 22.2, Jack % (Auto) 7.8, Eos % (Auto) 2.9, Baso % (Auto) 0.5, Absolute Neuts (auto) 7.3, Absolute Lymphs (auto) 2.44, Nucleated RBC % 0 07/28/22 03:44: Sodium 139, Potassium 4.1, Chloride 111 H, Carbon Dioxide 22.0, Anion Gap 6, BUN 13, Creatinine 0.94, Estim Creat Clear Calc 88.21, Est GFR (MDRD) Af Amer 108, Est GFR (MDRD) Non-Af 89, BUN/Creatinine Ratio 13.8, Glucose 109 H, Calcium 8.5, Phosphorus 2.2 L, Magnesium 2.1, Total Bilirubin 0.50, AST 287 H, ALT 71 H, Alkaline Phosphatase 64, Total Protein 5.8 L, Albumin 3.1 L, Globulin 2.7, Albumin/Globulin Ratio 1.1, Triglycerides 94, Cholesterol 131, LDL Cholesterol 72, VLDL Cholesterol 19, HDL Cholesterol 40, TSH 1.96 07/28/22 03:44: Troponin I High Sens 49386 H* Physical Exam Const alert, oriented x3 and well nourished Constitutional Narrative: Middle-aged white male sitting up in bed, appears slightly comfortable, nontoxic appearing General Appearance: cooperative HEENT normocephalic, head/scalp atraumatic, hearing grossly normal bilaterally and moist oral mucous membranes Resp normal respiratory effort, no retractions, no use of accessory muscles and clear to auscultation bilaterally Resp Narrative: Diffusely diminished but clear Auscultation: Negative for crackles, rales, rhonchi or wheezes Cardio regular rhythm, S1 normal heart sound, S2 normal heart sound, no murmurs, no rub, no gallops and no clicks Cardio Narrative: Bradycardic GI normal to inspection, nondistended, normoactive bowel sounds, soft to palpation, non-tender and non-distended Extremity no clubbing, cyanosis or edema Extremity Narrative: 2+ pedal pulses, 2+ radial pulses and equal bilaterally, mild tenderness at right radial artery due to cardiac catheterization-no hematoma or signs of bleeding Skin no rashes or lesions noted, no wounds, skin turgor normal, no jaundice, no petechiae and no mottling Neuro oriented x3, moves all extremities and no focal motor deficits Speech: speech normal Psych affect normal Mood & Affect: anxious Assessment & Plan Assessment/Plan (1) NSTEMI (non-ST elevated myocardial infarction): (2) Bradycardia: (3) CAD (coronary artery disease): PLAN: Plan NSTEMI -Cardiac catheterization yesterday with occluded RCA status post LATRICE x2 -CPA during cardiac catheterization that was brief -Clinically much improved -Continue aspirin/Plavix/atorvastatin -Beta-natasha and HERBERT inhibitor on hold secondary to borderline blood pressures -Lipids with total cholesterol of 131/LDL 72/HDL 40/triglyceride of 94 -Hemoglobin A1c is 5.3 -Cardiology following and appreciate input -Transfer to PCU with probable discharge home tomorrow Bradycardia -Metoprolol discontinued by cardiology this morning Erythrocytosis -Resolved with hydration Hyperglycemia -Likely stress response as hemoglobin A1c was 5.3 Tobacco abuse -Recommend cessation -Nicotine replacement with gum ordered DVT prophylaxis -Lovenox CODE STATUS -Full code Charges/Coding Visit Charges Inpatient E&M: 56976 Subs Hosp L2
[2022-07-28] MEDS: Atorvastatin Calcium 80 MG Tablet PO (21:12)
[2022-07-29] VITALS (10 sets, daily range): BP systolic 87–116; BP diastolic 62–76; PULSE 53–111; RESP 12–17; TEMP 36.6–37; O2SAT 97–100
[2022-07-29 03:29] LABS: Absolute Lymphocyte Count 3.14 X10^3/uL (0.83-4.51); Absolute Neutrophil Count 3.7 X10^3/uL (2.0-7.7); Basophil# 0.04 X10^3/uL; Basophil% 0.5 % (0-1); Eosinophil# 0.36 X10^3/uL; Eosinophils% 4.6 % (0-5); Hematocrit 40.7 % (40-54); Hemoglobin 13.5 g/dL (13.0-16.5); Lymphocyte # 3.14 X10^3/ul (0.83-4.51); Lymphocyte % 39.7 % (19-41); Mean Corp Hgb Conc 33.2 g/dL (32-36); Mean Corpuscular Volume 93.6 fL (80-94); Mean Platelet Vol. 10.3 fl (6.2-12.0); Monocyte# 0.66 X10^3/uL; Monocyte% 8.3 % (0-10); NRBC Flagged by Analyzer 0 % (0-5); Neutrophil # 3.69 X10^3/uL (2.7-7.7); Neutrophil % 46.6 % (47-70); Platelet Count 234 K/mm3 (150-450); RBC Distribution Width CV 13.4 % (11.6-14.6); RBC Distribution Width SD 46.1 fl (35.1-43.9); Red Blood Count 4.35 M/mm3 (4.6-6.2); White Blood Count 7.9 K/mm3 (4.4-11.0)
[2022-07-29 03:42] LABS: Anion Gap 3 (5-15); BUN 9 mg/dL (7-18); BUN/Creat Ratio 10.4 RATIO (10-20); Calcium,Total 8.3 mg/dL (8.5-10.1); Chloride 112 mmol/L (98-107); Creatinine, Serum 0.87 mg/dL (0.70-1.30); EST Glomerular Filtration Rate 98 mL/min (>60); Est Glom Filt Rate - Afr Amer 119 mL/min (>60); Estimated Creatinine Clearance 99.92 ml/min; Glucose 91 mg/dL (74-106); Phosphorus 2.5 mg/dL (2.5-4.9); Potassium 3.8 mmol/L (3.5-5.1); Sodium Level 142 mmol/L (136-145)
[2022-07-29] MEDS: Acetaminophen 325 MG Tablet 650 MG PO ×2 (05:02→11:37)
[2022-07-29] MEDS: Nicotine Polacrilex 2 MG GUM PO (05:04)
[2022-07-29] MEDS: Enoxaparin 40 MG/0.4 ML Syringe SC (07:57)
[2022-07-29] MEDS: Aspirin E.C. 81 MG Tablet PO (07:57)
[2022-07-29] MEDS: Clopidogrel Bisulfate 75 MG Tablet PO (07:57)
[2022-07-29] MEDS: Metoprolol Tartrate 25 MG Tablet 12.5 MG PO (09:05)
--- NOTE | 2022-07-29 10:42 | CASEMGMT ---
Social Work SW met w/pt to offer support. Pt reports to be managing well and feeling good. SW remains available for support as needed. SHARRI Kunz
--- NOTE | 2022-07-29 10:46 | PCM.DC.SUM ---
Providers Date of Admission: 07/27/22 Date of Discharge: 07/29/22 Primary Care Physician: URBAN MARTINES Reason For Visit: UNSTABLE ANGINA Diagnosis Discharge Diagnosis (1) NSTEMI (non-ST elevated myocardial infarction): Status: Acute Code(s): I21.4 - Non-ST elevation (NSTEMI) myocardial infarction (2) Bradycardia: Status: Acute Code(s): R00.1 - Bradycardia, unspecified (3) CAD (coronary artery disease): Status: Inactive Code(s): I25.10 - Atherosclerotic heart disease of [place] coronary artery without angina pectoris Medications at Discharge Home Medications fluticasone propionate 50 mcg/actuation nasal spray,suspension (Flonase Allergy Relief) 2 spray intranasal QHS allergies 07/27/22 ibuprofen 200 mg tablet (Advil) 200 mg PO Q6H PRN Pain 07/27/22 aspirin 81 mg tablet,delayed release 81 mg PO BREAKFAST #0 tabs 07/29/22 atorvastatin 80 mg tablet 80 mg PO QHS #30 tabs 07/29/22 clopidogrel 75 mg tablet 75 mg PO DAILY #30 tabs 07/29/22 Hospital Course Procedures 2-D Echocardiogram and Cardiac catheterization Summary of Care Provided Minutes Spent on Discharge: 37 Hospital Course: Mr. Moulton is a 52-year-old white male who presented to emergency department [facility] on 07/27/2022 complaining of chest pain that was associated with profound weakness. Patient reported that he got up on the morning of admission and was feeling well. He took his dog outside and was walking with him and developed a severe pressure like sensation between his upper scapula that radiated to both arms. He reported that he felt profoundly weak at that time but denied any nausea, vomiting or shortness of breath. He reported that he went inside and sat down and felt a little better than he went to take a shower at which time his symptoms worsen. He then came to the emergency department. He had ongoing chest pain and emergency department and was given nitroglycerin x3 doses at which time his pain went from a 6 to a 1 in severity. At the time of my evaluation at admission he was experiencing increased pain again and a nitroglycerin drip was initiated. He denied any previous history of coronary disease but reported he had a syncopal episode in 2014 for which she had an echocardiogram and no abnormalities were found. He denied ever having a stress test or cardiac catheterization but did report that his father had cardiac stents and he thought that he was in his 50s when this happened. He noted a history of tobacco abuse. Vital signs at the time of presentation showed a temperature of 96.8, heart rate was 54, blood pressure is 117/81, respiratory rate was 16, oxygen saturation was 100% on room air.? His CBC was overall unremarkable other than erythrocytosis with a hemoglobin of 16.8.? His chemistry panel was unremarkable with a normal serum creatinine other than a glucose of 143.? The patient had not eaten breakfast.? His chest x-ray shows no acute cardiopulmonary findings or widening of the mediastinum.? His EKG shows normal sinus rhythm with less 1 mm of elevation in the inferior leads and was sinus bradycardia with normal intervals.? His initial troponin was found to be 7. His overall presentation was concerning and I discussed the case with cardiology and they elected to take him to the [facility] on 07/27/2022. Catheterization revealed moderate disease of the LAD and circumflex artery with intramyocardial bridging of the LAD and a totally occluded right coronary artery with right to left collaterals and a hypokinetic inferior wall. He was referred for immediate PCI and 2 LATRICE to the RCA were placed. With stenting of the RCA he did develop an asystolic event which she received brief CPR but ROSC was achieved quite quickly. He never required endotracheal intubation and received only a few chest compressions. He was monitored in the ICU following his stent placement and placed on Plavix, aspirin, and a high-dose intensity statin. Lipids were assessed and his total cholesterol was 131/LDL 72/HDL 40/triglycerides 94. We did continue his statin however for pleiotropic effects. His blood glucose level was noted to be slightly elevated on admission therefore hemoglobin A1c was obtained and found to be normal at 5.3. He was initially started on metoprolol however he was bradycardic with rates in the 30s and therefore this was discontinued. His heart rates did improve however he still was somewhat bradycardic at night however he had appropriate response to wakefulness and exertion. Echocardiogram was obtained his EF was 45 to 50% with inferior and inferior septal hypokinesis. Patient had no further arrhythmias other than intermittent bradycardia with rest and was felt stable for discharge on 07/29/2022. Again he was placed on Plavix, aspirin, and high intensity dose statin at discharge and prescriptions were faxed to his pharmacy. He was discharged home in stable condition on 07/29/2022 with instruction to follow-up with his primary care physician within the next 1 to 2 weeks and with cardiology within the next month. He was highly counseled on tobacco cessation. Discharge diagnoses: NSTEMI CAD Asystole-resolved Bradycardia Hyperglycemia Tobacco abuse Physical Exam Const alert, oriented x3, healthy appearing and well nourished Constitutional Narrative: Middle-aged white male walking around his room, appears comfortable, nontoxic appearing General Appearance: cooperative, comfortable, well kempt and well developed Orientation / Consciousness: awake, oriented to person, oriented to place and oriented to time Exam Limitations: no limitations HEENT normocephalic, head/scalp atraumatic, hearing grossly normal bilaterally and moist oral mucous membranes HEENT Narrative: Dentition is good, Mallampati is 2, no thrush Eyes PERRL, EOMs intact bilaterally and conjunctivae normal Eyes Narrative: No scleral icterus Neck no lymphadenopathy and supple Neck Narrative: Trachea midline, no thyroid enlargement Resp normal respiratory effort, no retractions, no use of accessory muscles and clear to auscultation bilaterally Resp Narrative: Diffusely diminished but clear Auscultation: Negative for crackles, rales, rhonchi or wheezes Cardio regular rate, regular rhythm, S1 normal heart sound, S2 normal heart sound, no murmurs, no rub, no gallops and no clicks GI normal to inspection, nondistended, normoactive bowel sounds, soft to palpation, non-tender and non-distended Extremity no clubbing, cyanosis or edema Extremity Narrative: 2+ pedal pulses, 2+ radial pulses and equal bilaterally, cath site stable Skin no rashes or lesions noted, no wounds, skin turgor normal, no jaundice, no petechiae and no mottling Neuro oriented x3, CN's II-XII intact bilaterally, moves all extremities and no focal motor deficits Neuro Narrative: Gait is normal Speech: speech normal Psych affect normal Psych Narrative: Very pleasant and appropriately interactive Mood & Affect: anxious Weight / BMI Weight Weight: 71.214 kg Body Mass Index (BMI) 21.4 ABG / Lab / Microbiology Data Result Diagrams: 07/29/22 03:18 07/29/22 03:18 Laboratory: Laboratory Results - last 24 hr 07/29/22 03:18: WBC 7.9, RBC 4.35 L, Hgb 13.5, Hct 40.7, MCV 93.6, MCH 31.0, MCHC 33.2, RDW Std Deviation 46.1 H, RDW Coeff of [place] 13.4, Plt Count 234, MPV 10.3, Immature Gran % (Auto) 0.300, Neut % (Auto) 46.6 L, Lymph % (Auto) 39.7, [place] % (Auto) 8.3, Eos % (Auto) 4.6, Baso % (Auto) 0.5, Absolute Neuts (auto) 3.7, Absolute Lymphs (auto) 3.14, Nucleated RBC % 0 07/29/22 03:18: Sodium 142, Potassium 3.8, Chloride 112 H, Carbon Dioxide 27.0, Anion Gap 3 L, BUN 9, Creatinine 0.87, Estim Creat Clear Calc 99.92, Est GFR (MDRD) Af Amer 119, Est GFR (MDRD) Non-Af 98, BUN/Creatinine Ratio 10.4, Glucose 91, Calcium 8.3 L, Phosphorus 2.5 Radiography Diagnostic Testing: Radiology Impression Echocardiogram 07/27/22 09:36 Interpretation Summary The left ventricular ejection fraction is 45-50%. Inferior and inferior septal hypokinesis. Ordering Physician: Roberta Ochoa Referring Physician: OTD Performed By: Trudy Wallace, JENNIE, RVT D/C Instructions Discharge Diet: Low fat / Low cholesterol Discharge Activity: Return to Normal Activity Return to work on: 08/01/22 May resume sexual activity in: No Restrictions Meaningful Use Info Meaningful Use Diagnoses (Choose all that apply): None applicable Discharge Plan Admission Admit Date/Time: 07/27/22 08:53 Primary Reason for Your Visit: Chest Pain Attending Provider: Roberta Ochoa Primary Care Provider: URBAN MARTINES Instructions Forms: Work / School Excuse Discharge Orders/Prescriptions Prescriptions: New aspirin 81 mg Tablet,Delayed Release (Dr/Ec) 81 mg PO BREAKFAST Qty: 0 0RF atorvastatin 80 mg Tablet 80 mg PO QHS Qty: 30 1RF clopidogrel 75 mg Tablet 75 mg PO DAILY Qty: 30 11RF Continued fluticasone propionate [Flonase Allergy Relief] 50 mcg/actuation [place],Suspension 2 spray INTRANASAL QHS Held ibuprofen [Advil] 200 mg Tablet 200 mg PO Q6H PRN (Reason: Pain) Hold Instructions: would avoid if able and if needed use sparingly Referrals / Follow Up: URBAN MARTINES [Other] Jesus Flannery MD [Med Staff - Active Staff] - Within 1 Month (Call later today or tomorrow to make an appt for hospital follow-up) Irvin Loo DO [Non-Staff] - In 1 Week Disposition Disposition (needs filled in before D/C Order can be placed): Home, Self Care Charges/Coding Visit Charges Inpatient E&M: 19953 Disch Hosp
--- NOTE | 2022-07-29 11:36 | PCM.PN.CARD ---
Subjective Subjective Ambulating. No complaints. Objective Data Vital Signs: Vital Signs Temp Pulse Resp BP Pulse Ox O2 Del Method O2 Flow Rate 98.4 F 58 L 17 116/76 100 Room Air 2 07/29/22 08:01 07/29/22 11:06 07/29/22 08:01 07/29/22 09:05 07/29/22 08:01 07/29/22 08:01 07/27/22 12:30 Oxygen Flow Rate (L/min) 2 Oxygen Delivery Method Room Air Weight: 157 lb Body Mass Index (BMI) 21.4 Intake & Output: Intake and Output for Last 24 Hours 07/27/22 07/28/22 07/29/22 23:59 23:59 23:59 Intake Total 2025.45 / 2025.45 2215 / 2215 Output Total 375 / 375 Balance 2025.45 / 1650.45 1840 / 1840 Lab / Micro Data Result Diagrams: 07/29/22 03:18 07/29/22 03:18 Labs: Laboratory Results - last 24 hr 07/29/22 03:18: WBC 7.9, RBC 4.35 L, Hgb 13.5, Hct 40.7, MCV 93.6, MCH 31.0, MCHC 33.2, RDW Std Deviation 46.1 H, RDW Coeff of [place] 13.4, Plt Count 234, MPV 10.3, Immature Gran % (Auto) 0.300, Neut % (Auto) 46.6 L, Lymph % (Auto) 39.7, [place] % (Auto) 8.3, Eos % (Auto) 4.6, Baso % (Auto) 0.5, Absolute Neuts (auto) 3.7, Absolute Lymphs (auto) 3.14, Nucleated RBC % 0 07/29/22 03:18: Sodium 142, Potassium 3.8, Chloride 112 H, Carbon Dioxide 27.0, Anion Gap 3 L, BUN 9, Creatinine 0.87, Estim Creat Clear Calc 99.92, Est GFR (MDRD) Af Amer 119, Est GFR (MDRD) Non-Af 98, BUN/Creatinine Ratio 10.4, Glucose 91, Calcium 8.3 L, Phosphorus 2.5 Cardiology Labs/Tests 07/29/22 03:18: WBC 7.9, RBC 4.35 L, Hgb 13.5, Hct 40.7, MCV 93.6, MCH 31.0, MCHC 33.2, Plt Count 234, MPV 10.3, Immature Gran % (Auto) 0.300, Neut % (Auto) 46.6 L, Lymph % (Auto) 39.7, [place] % (Auto) 8.3, Eos % (Auto) 4.6, Baso % (Auto) 0.5, Absolute Neuts (auto) 3.7, Nucleated RBC % 0 07/29/22 03:18: Sodium 142, Potassium 3.8, Chloride 112 H, Carbon Dioxide 27.0, Anion Gap 3 L, BUN 9, Creatinine 0.87, Est GFR (MDRD) Af Amer 119, Est GFR (MDRD) Non-Af 98, BUN/Creatinine Ratio 10.4, Glucose 91, Calcium 8.3 L, Phosphorus 2.5 Rhythm: EKG: ECHO: Stress Test: Cardiac Cath: PCI: CT Surgery: Holter monitor: EPS: PPM: CXR: Chest CT Scan: Radiography Diagnostic Testing: Radiology Impression Echocardiogram 07/27/22 09:36 Interpretation Summary The left ventricular ejection fraction is 45-50%. Inferior and inferior septal hypokinesis. Ordering Physician: Roberta Ochoa Referring Physician: OTD Performed By: Trudy Wallace RDCS, RVT Physical Exam Narrative Heart sounds 1 and 2 are normal. Chest clear to auscultation bilaterally. No ankle edema. Alert oriented x3. Assessment & Plan Assessment/Plan (1) NSTEMI (non-ST elevated myocardial infarction): PLAN: Stable. Asymptomatic. Continue aspirin lifelong. Continue aspirin lifelong. Clopidogrel for at least 1 year. (2) CAD (coronary artery disease): PLAN: See #1 above. (3) Bradycardia: PLAN: Heart rate improved today. Will give a trial of low-dose beta-natasha. If the heart rate again dips significantly, then will not sent home on metoprolol. PLAN: Plan May discharge home today.
--- NOTE | 2022-07-31 12:01 | CL.I_ITS ---
Patient Name: SAMMY DEUTSCH Study Date: 07/27/2022 Performing: Priya Lowe MD Ht: 70 inches 177.8 cm : 1970 Wt: 149.56 lbs 67.84 kg Age: 52 Gender: male BSA: 1.84 PROCEDURE(S) PERFORMED IC17-(66550)CORONARY MECHANICAL THROMBECTOMY (ANGIOJET,PENUMBRA) IC12-(39191/C9600)LATRICE W/WO PTCA, SINGLE CORONARY ARTERY CLINICAL PROFILE AND CO-MORBIDITIES Indications: ACS <= 24 hrs, Suspected CAD Heart Failure: None Stress/Imaging Stress/Image Study Performed: No Angina Classification Anginal Classification w/in 2 Weeks: CCS IV CAD Presentations: Unstable angina. Unstable angina. CONCLUSIONS mm, post-dilated using 3.25 mm balloon RECOMMENDATIONS Plavix for at least 12 months ASA Indefinitley DESCRIPTION OF PROCEDURE The patient arrived to the procedure lab. The risks and benefits of the procedure as well as a full description of our services here and current unavailability of surgical backup were fully explained to the patient and/or their significant other prior to the catheterization. The Timeout was completed, verifying the correct patient and procedure. The patient's procedural site was prepped and draped in the usual fashion. Local anesthetic was given subcutaneously to right radial region with Lidocaine 2% Using a modified Seldinger technique,arterial access was obtained via the right radial artery, a 6Fr sheath was inserted. Left Coronary Artery selective angiography was performed in multiple views using a 5 Fr. 4.0 Cheraw catheter. Right Coronary Artery selective angiography was then performed in multiple views using a 5 Fr. 4.0 Cheraw catheter. Left Ventriculography was performed in ALMONTE projection using a 5 Fr. Pigtail catheter. LV to AO pullback pressures were then recorded.The images were reviewed and options discussed. A decision was then made to proceed with an Intervention, IVUS or other adjunct procedure. JR4 Guide catheter was inserted and engaged into the RCA. Runthrough Guide wire was advanced to the RCA. Resolute [place] 3.0 x 38 Drug Eluting stent was inserted. Drug Eluting stent was advanced across the lesion in the right coronary, mid. Angiogram performed post stent deployment. NC Emerge 3.25 x 20 Balloon catheter was inserted. Balloon catheter was advanced across lesion in the right coronary, mid. Angiogram performed post stent deployment. The arterial sheath was pulled and a TR Band was applied for hemostasis INTERVENTION INFORMATION LESION SITE: RCA (Mid) Lesion Complexity: High/C, chronic total occlusion: No, thrombus present: Yes, lesion length: 36 mm, culprit lesion: Yes Pre Stenosis: 100 % Pre intervention CHATO flow: 0 PROCEDURE: Drug Eluting Stent with post dilatation Post Stenosis: 0 % Post intervention CHATO flow: 3 Lesion Devices: Terumo .014 Runthrough Extra Floppy 180cm straight Cordis 6 Fr JR4 100cm Guide Catheter Penumbra Indigo Penumbra CAT Rx 140cm large lumen Penumbra Penumbra engine canister Medtronic Resolute Jacob RX LATRICE 3.0x38 Raj Sci NC EMERGE MR 3.25x20 BALLOON COMPLICATIONS PROCEDURE MEDICATIONS Fentanyl 50 mcg IV Versed 1 mg IV Versed 1 mg IV Oxygen: 2 L/min via nasal cannula Oxygen: 15 L/min via non-rebreather mask Oxygen: 10 L/min via simple mask Oxygen: 4 L/min via nasal cannula Oxygen: 2 L/min via nasal cannula Atropine 1mg/10ml 1 amp 07/27/2022 11:44:37 Amiodarone 150 mg/min 07/27/2022 11:47:16 Adenosine 48 mcg IC 07/27/2022 12:12:05 Brilinta 180 mg PO @ 07/27/2022 12:21:54 Epinephrine 1mg/10ml 1 amp 07/27/2022 11:44:37 Heparin given IA 07/27/2022 11:16:46 Heparin 6000 unit(s) IV 07/27/2022 11:33:25 Heparin 2000 unit(s) IV 07/27/2022 11:50:44 Nitro glycerin 25mg / 250ml D5W @ 5 mcg/min discontinued upon arrival to the [facility] 07/27/2022 11:03:51 Nitro 50 mcg IC 07/27/2022 12:11:13 Zofran 4 mg IV 07/27/2022 11:46:17 IV Bolus: .9 NaCl 600 ml total 07/27/2022 12:11:43 IV Fluids: .9 NaCl increased to open ml/hr 07/27/2022 11:47:35 SUMMARY OF HEMODYNAMIC DATA Time AIR REST ECG 10:55:36 Art 144/62 (83) 11:13:22 AO 105/67 (85) SA 11:17:36 LV 105/15, 25 11:23:03 LV 105/15, 24 11:23:09 LV 96/16, 25 11:24:05 LVp 105/14, 25 11:24:12 AOp 103/64 (81) 11:24:18 AIR REST 12:32:06 Signed By Priya Lwoe MD On 07/31/2022 12:00:56 Priya Lowe MD
== END 2022-07-29 11:52 | disposition home or self-care (01) | DRG 246 ==
LOC: ED 08:38 → PCU 09:15 → ICU 07-28 08:37
PROVIDERS: Internal Medicine Cardiovascular Disease; Admitting Provider Internal Medicine; Emergency Provider Student in an Organized Health Care Education/Training Program; Visit Provider Internal Medicine
DX: I21.4 Non-ST elevation (NSTEMI) myocardial infarction (principal); I46.9 Cardiac arrest, cause unspecified; F17.210 Nicotine dependence, cigarettes, uncomplicated; I25.10 Atherosclerotic heart disease of native coronary artery without angina pectoris; R00.1 Bradycardia, unspecified; R07.9 Chest pain, unspecified; R73.9 Hyperglycemia, unspecified; Z79.82 Long term (current) use of aspirin; Z71.6 Tobacco abuse counseling
CPT/HCPCS: 36415; 71045; 80048; 80053; 80061; 83036; 83735; 84100; 84443; 84484; 85025; 85347; 86140; 92928; 92973; 93005; 93306; 93458; 99152; 99153; 99251; 99285; 99406; C1757; J7030; J7040; J7050; J7120; Q9967; A4216; C1725; C1769; C1874; C1887; C1894; C9600; G0463; J0153; J1327; J2405

== ENCOUNTER → 2023-01-25 | Outpatient (CLI) | payer OTHER, SELFPAY ==
--- NOTE | 2023-01-25 08:05 | ECHOCS_ITS ---
Reason For Study: CM Procedure This was a 2D Doppler, Color Flow transthoracic echocardiogram. Contrast injection was performed. Exam performed in department. Left Ventricle Normal LV size. The estimated ejection fraction is 47 %. There is mild global hypokinesis of the left ventricle. Right Ventricle Normal RV size. Normal systolic function. Atria Normal left atrium. Normal right atrium. Mitral Valve Normal mitral valve. Mild (1+) eccentric mitral valve insufficiency. Tricuspid Valve Normal tricuspid valve. Mild (1+) tricuspid valve insufficiency. Pulmonary artery systolic pressure is 28 mmHg. Aortic Valve Trisinus/trileaflet aortic valve. Pulmonic Valve Normal pulmonic valve. Great Vessels Normal aortic root. The pulmonary artery is normal size. Normal inferior vena cava. Pericardium/Pleural No pericardial effusion. Medication Diluted definity 5ml given slow IV push to enhance endocardial definition. MMode/2D Measurements & Calculations LVIDd: 5.2 cm IVSd: 0.67 cm Ao root diam: 2.3 cm LVIDs: 3.7 cm LVPWd: 0.88 cm RVDd: 2.8 cm FS: 28.6 % LAV(MOD-bp): 23.1 ml LVAd ap4: 30.4 cm2 SV(MOD-sp4): 49.6 ml LAV(MOD-bp) Indexed: 12.3 ml/m2 LVLd ap4: 7.9 cm LAV(MOD-sp2): 18.6 ml EDV(MOD-sp4): 98.7 ml LAV(MOD-sp4): 19.2 ml EDV(sp4-el): 99.4 ml LVAs ap4: 19.2 cm2 LVLs ap4: 6.6 cm ESV(MOD-sp4): 49.1 ml ESV(sp4-el): 47.6 ml EF(MOD-sp4): 50.3 % EF(sp4-el): 52.1 % SV(sp4-el): 51.8 ml LA A4 area: 10.9 cm2 LA dimension(2D): 2.9 cm RA A4 area: 11.3 cm2 Time Measurements MV dec time: 0.24 sec Doppler Measurements & Calculations MV E max marcio: 52.8 cm/sec Lat Peak E' Marcio: 14.9 cm/sec Med Peak E' Marcio: 8.9 cm/sec MV A max marcio: 39.1 cm/sec E/E' lat: 3.5 E/E' med: 6.0 MV E/A: 1.3 MV dec slope: 221.0 cm/sec2 Ao V2 max: 117.8 cm/sec LV V1 max: 89.4 cm/sec Ao max P.5 mmHg LV V1 max P.2 mmHg Ao V2 mean: 88.1 cm/sec Ao mean P.4 mmHg Ao V2 VTI: 23.5 cm PA V2 max: 75.2 cm/sec TR max marcio: 247.9 cm/sec TR max P.6 mmHg ECHO/Echo Complete W/ Contrast Interpretation Summary Normal LV size. The estimated ejection fraction is 47 %. There is mild global hypokinesis of the left ventricle. Pulmonary artery systolic pressure is 28 mmHg. Contrast injection was performed. Ordering Physician: Gabriela Canales Referring Physician: Gabriela Canales Performed By: Margarita Long, JENNIE, RVT
== END | disposition home or self-care (01) ==
LOC: CVS 08:03
PROVIDERS: Referring Provider Physician Assistant Medical; Visit Provider Physician Assistant Medical
DX: I25.5 Ischemic cardiomyopathy (principal)
CPT/HCPCS: 93306; Q9957; A4216; C8929

== ENCOUNTER → 2023-06-20 | Outpatient (CLI) | payer OTHER, SELFPAY ==
[2023-06-20 16:31] LABS: AST(SGOT) 20 U/L (15-37); Alanine Aminotransfer ALT/SGPT 26 U/L (16-61); Albumin, Serum 3.9 g/dL (3.2-5.0); Alkaline Phosphatase 74 U/L (45-117); Bilirubin, Direct 0.19 mg/dL (0.00-0.30); Cholesterol 128 mg/dL (200); Globulin 3.3 g/dL (2.2-4.2); High Density Lipoprotein 46 mg/dL; Protein, Total 7.2 g/dL (6.4-8.2); Triglycerides 103 mg/dL; Very Low Density Lipoprotein 21 mg/dL (5-40)
== END | disposition home or self-care (01) ==
LOC: LAB 15:37
PROVIDERS: Referring Provider Internal Medicine Cardiovascular Disease; Visit Provider Internal Medicine Cardiovascular Disease
DX: Z95.5 Presence of coronary angioplasty implant and graft (principal)
CPT/HCPCS: 36415; 80061; 80076

== ENCOUNTER → 2024-06-20 | Outpatient (CLI) | payer OTHER, SELFPAY ==
[2024-06-20 09:57] LABS: Basophil# 0.05 X10^3/uL; Basophil% 0.6 % (0-1); Eosinophil# 0.44 X10^3/uL; Eosinophils% 5.1 % (0-5); Hematocrit 49.3 % (40-54); Hemoglobin 16.1 g/dL (13.0-16.5); Lymphocyte % 29.9 % (19-41); Mean Corp Hgb Conc 32.7 g/dL (32-36); Mean Corpuscular Hgb 30.7 pg (27.0-32.0); Mean Corpuscular Volume 93.9 fL (80-94); Mean Platelet Vol. 9.9 fl (6.2-12.0); Monocyte# 0.62 X10^3/uL; Monocyte% 7.1 % (0-10); NRBC Flagged by Analyzer 0 % (0-5); Neutrophil # 4.95 X10^3/uL (2.7-7.7); Platelet Count 293 K/mm3 (150-450); RBC Distribution Width CV 13.2 % (11.6-14.6); Red Blood Count 5.25 M/mm3 (4.6-6.2); White Blood Count 8.7 K/mm3 (4.4-11.0)
[2024-06-20 10:39] LABS: ALB/GLOB Ratio 1.2 RATIO (0.9-2.4); AST(SGOT) 21 U/L (15-37); Alanine Aminotransfer ALT/SGPT 24 U/L (16-61); Albumin, Serum 3.8 g/dL (3.2-5.0); Alkaline Phosphatase 79 U/L (45-117); Anion Gap 4 (5-15); BUN 11 mg/dL (7-18); BUN/Creat Ratio 10.1 RATIO (10-20); Calcium,Total 9.8 mg/dL (8.5-10.1); Chloride 105 mmol/L (98-107); Cholesterol 138 mg/dL (200); Creatinine, Serum 1.09 mg/dL (0.70-1.30); EST Glomerular Filtration Rate 75 mL/min (>60); Est Glom Filt Rate - Afr Amer 91 mL/min (>60); Globulin 3.3 g/dL (2.2-4.2); Glucose 96 mg/dL (74-106); High Density Lipoprotein 52 mg/dL; Protein, Total 7.1 g/dL (6.4-8.2); Sodium Level 136 mmol/L (136-145); Triglycerides 93 mg/dL; Very Low Density Lipoprotein 19 mg/dL (5-40)
[2024-06-21 08:12] LABS: CRP, High Sensitivity 0.75 mg/L (0.00-3.00)
[2024-06-22 04:10] LABS: PSA, Total 1.2 ng/mL (0.0-4.0)
== END | disposition home or self-care (01) ==
LOC: LAB 09:19
DX: I25.10 Atherosclerotic heart disease of native coronary artery without angina pectoris (principal); R53.1 Weakness; R53.83 Other fatigue
CPT/HCPCS: 36415; 80053; 80061; 84153; 84443; 85025; 86141

== ENCOUNTER 2024-10-24 11:33 | Emergency (ER) | payer OTHER, SELFPAY ==
[2024-10-24 11:34] VITALS: BP 98/73; PULSE 101; RESP 20; TEMP 37.2; O2SAT 95; BMI 22.6
[2024-10-24 11:37] VITALS: BP 98/73; PULSE 102; RESP 20; TEMP 37.2; O2SAT 95
--- NOTE | 2024-10-24 11:52 | EDS_ITS ---
HPI History of Present Illness Chief Complaint: General Illness Detail of Chief Complaint: Cough and headache and body ache Informant: patient Narrative Narrative: Patient presents to the emergency department complaint not feeling well x 2 days. Patient states that he thought he was get bronchitis so he called his primary care physician who called in a Z-Len. Cough mostly nonproductive. He coughs so hard as well that he thinks he pulled some muscles in his back and now having pain with movement. Describes a headache. Subjective fever and chills. Intermittently he will have some mild discomfort that radiates from his back down to the left lateral thigh. [facility] Medical History Cardiomyopathy, ischemic Atherosclerosis of coronary artery of [place] heart without angina pectoris NSTEMI (non-ST elevated myocardial infarction) Bradycardia CAD (coronary artery disease) Tobacco abuse Home Medications ?Medication ?Instructions ?Recorded ?Last Taken ?Type aspirin 81 mg tablet,delayed 81 mg PO BREAKFAST #0 tab s 07/29/22 10/23/24 20:00 Rx release fluticasone propionate 50 2 spray intranasal QHS PRN 0 10/17/22 Unknown History mcg/actuation nasal allergies spray,suspension (Flonase Allergy Relief) lisinopril 2.5 mg tablet 2.5 mg PO DAILY #90 tabs 10/23/24 20:00 Rx metoprolol succinate 25 mg 12.5 mg (1/2 x 25 mg) PO DA SHAWN #90 07/11/24 10/23/24 20:00 Rx tablet,extended release 24 hr tabs rosuvastatin 5 mg tablet (Crestor) 5 mg PO DAILY #90 t abs 07/11/24 10/23/24 Rx oseltamivir 75 mg capsule (Tamiflu) 75 mg PO BID 5 day s #10 caps 10/24/24 Unknown Rx Allergy/AdvReac Type Severity Reaction Status Date / Time No Known Allergies Allergy Verified 10/24/24 11:38 Family History Mother Lymphoma Leukemia Father Esophageal cancer CAD (coronary artery disease) Surgical History History of coronary artery stent placement (11/16/22) Hx of appendectomy Previous back surgery Social History household members: spouse housing: house Smoking Status: Light Smoker (<10/day) alcohol intake: never substance use type: does not use what type of physical activity do you participate in: none ROS ROS ED Review of Systems ROS Unobtainable: other Constitutional Constitutional ED: Reports lethargy; Denies chills, fever(s), sweats or weight loss Eyes Eyes: Denies blurry vision, change in vision or diplopia ENT ENT ED: Denies rhinorrhea or sore throat
--- NOTE | 2024-10-24 11:52 | EX.ED.DYSGE1 ---
HPI History of Present Illness Chief Complaint: General Illness Detail of Chief Complaint: Cough and headache and body ache Informant: patient Narrative Narrative: Patient presents to the emergency department complaint not feeling well x 2 days. Patient states that he thought he was get bronchitis so he called his primary care physician who called in a Z-Len. Cough mostly nonproductive. He coughs so hard as well that he thinks he pulled some muscles in his back and now having pain with movement. Describes a headache. Subjective fever and chills. Intermittently he will have some mild discomfort that radiates from his back down to the left lateral thigh. [facility] Medical History Cardiomyopathy, ischemic Atherosclerosis of coronary artery of [place] heart without angina pectoris NSTEMI (non-ST elevated myocardial infarction) Bradycardia CAD (coronary artery disease) Tobacco abuse Home Medications ?Medication ?Instructions ?Recorded ?Last Taken ?Type aspirin 81 mg tablet,delayed 81 mg PO BREAKFAST #0 tabs 07/29/22 10/23/24 20:00 Rx release fluticasone propionate 50 2 spray intranasal QHS PRN 10/17/22 Unknown History mcg/actuation nasal allergies spray,suspension (Flonase Allergy Relief) lisinopril 2.5 mg tablet 2.5 mg PO DAILY #90 tabs 07/11/24 10/23/24 20:00 Rx metoprolol succinate 25 mg 12.5 mg (1/2 x 25 mg) PO DAILY #90 07/11/24 10/23/24 20:00 Rx tablet,extended release 24 hr tabs rosuvastatin 5 mg tablet (Crestor) 5 mg PO DAILY #90 tabs 07/11/24 10/23/24 Rx oseltamivir 75 mg capsule (Tamiflu) 75 mg PO BID 5 days #10 caps 10/24/24 Unknown Rx Allergy/AdvReac Type Severity Reaction Status Date / Time No Known Allergies Allergy Verified 10/24/24 11:38 Family History Mother Lymphoma Leukemia Father Esophageal cancer CAD (coronary artery disease) Surgical History History of coronary artery stent placement (07/27/22) Hx of appendectomy Previous back surgery Social History household members: spouse housing: house Smoking Status: Light Smoker (<10/day) alcohol intake: never substance use type: does not use what type of physical activity do you participate in: none ROS ROS ED Review of Systems ROS Unobtainable: other Constitutional Constitutional ED: Reports lethargy; Denies chills, fever(s), sweats or weight loss Eyes Eyes: Denies blurry vision, change in vision or diplopia ENT ENT ED: Denies rhinorrhea or sore throat Cardiovascular Cardiovascular: Denies chest pain, orthopnea or racing heartbeat Respiratory/Chest Respiratory/Chest: Reports cough; Denies dyspnea, dyspnea on exertion, orthopnea or sputum Gastrointestinal Gastrointestinal: Denies abdominal pain, diarrhea, nausea or vomiting Genitourinary Genitourinary ED: Denies dysuria, hematuria or urinary frequency Musculoskeletal Musculoskeletal: Reports back pain and myalgias; Denies arthralgias or neck pain Integumentary Denies abscess, Abrasions or rash Neurologic Neurologic: Denies headache(s) or weakness Psychiatric Psychiatric: Denies anxiety, depression or suicidal thoughts Endocrine Endocrinology: Denies polydipsia, polyphagia or polyuria Hematologic/Lymphatic Hematologic/Lymphatic: Denies easy bleeding, easy bruising or lymphadenopathy Allergic/Immunologic Allergic/Immunologic ED: Denies mouth swelling, tongue swelling or urticaria EXAM Physical Exam Const Vital Signs: 10/24/24 11:34 10/24/24 11:37 10/24/24 12:32 Temperature 99 F 99 F 100 F H Temperature Source Oral Oral Temporal Pulse Rate 101 H 102 H 102 H Respiratory Rate 20 H 20 H 18 Blood Pressure 98/73 98/73 110/76 Blood Pressure Mean 81 81 87 Pulse Ox 95 95 95 Oxygen Delivery Method Room Air Room Air Room Air 10/24/24 12:57 10/24/24 12:57 Temperature 99.7 F H Temperature Source Temporal Pulse Rate 80 Respiratory Rate 16 Blood Pressure 101/68 101/68 Blood Pressure Mean 79 79 Pulse Ox 92 Oxygen Delivery Method Room Air Positive well nourished and well developed General Appearance ED: well developed and NAD HEENT Reports TM's clear and moist mucous membranes normocephalic and atraumatic; Negative for trauma or tenderness Tympanic Membrane ED: Yes TM's clear Eyes PERRL and EOMs intact bilaterally General Eye ED: Negative for pale conjunctiva or scleral icterus Neck no lymphadenopathy, supple and no JVD General: Negative for tenderness Chest Wall inspection of chest normal and palpation of chest normal Chest: Negative for tenderness Resp normal respiratory effort and clear to auscultation bilaterally Effort and Inspection: Negative for respiratory distress or pain with movement Auscultation: Negative for rhonchi, wheezes or diminished lung sounds Cardio regular rate, regular rhythm, S1 normal heart sound, S2 normal heart sound and no murmurs Peripheral Pulses: pulses 2+ throughout GI normal to inspection, nondistended, normoactive bowel sounds, soft to palpation, non-tender, non-distended and no masses Back/Spine no CVA tenderness and no thoracic nor lumbar tenderness Back/Spine Narrative: Mild diffuse tenderness palpation over the lumbar paraspinal musculature bilaterally. Negative straight leg raises bilaterally. Deep tendon reflexes plus 2 out of 4 bilaterally at the patella and Achilles. He has normal 5 extension Extremity normal to inspection General Extremety ED: Negative for edema General Extremity: Negative for edema Neuro oriented x3, CN's II-XII intact bilaterally, no sensory deficits noted and gait normal Sensorium / Orientation: awake, alert, oriented to person, oriented to place and oriented to time Motor Exam: strength 5/5 throughout and strength abnormal Psych mental status grossly normal Skin no rashes or lesions noted and no wounds MDM MDM MDM Narrative Medical decision making narrative: Patient presents with cough and bodyaches as well as headache. Also he thinks he pulled his back muscles while coughing. Clinically looks well. No signs or symptoms of cauda equina. I did perform a COVID flu and RSV test that was positive for influenza A. Chest x-ray obtained showed no evidence of pneumonia. Patient was medicated with morphine as well as Toradol and Norflex and had good relief with that. Discussed treatment with Tamiflu and he would like to proceed with that as he is only had symptoms for 2 days. Lab Data Attestation: I reviewed the patient's lab results. Radiography Diagnostic Testing: Clinical Impression(s) from Imaging Studies Chest X-Ray 10/24/24 12:15 IMPRESSION: Underlying chronic lung changes and hyperinflation are seen. No acute pneumonic process is identified. The cardiomediastinal silhouette is within the normal range. No pleural effusion or pneumothorax is seen. No acute osseous process is identified. Reading Location: [address] 1 view chest x-ray obtained interpreted by myself as no evidence of infiltrate or pneumothorax or acute disease process. Radiology in agreement. Discharge Plan Triage Chief Complaint: General Illness ED Provider: Suma Rodriguez Dx/Rx/DC Orders Clinical Impression: Influenza A, Back pain Instructions: ED Back Pain (Acute or Chronic), ED Influenza (Adult) Prescriptions: New oseltamivir [Tamiflu] 75 mg capsule 75 mg PO BID 5 Days Qty: 10 0RF No Action aspirin 81 mg Tablet,Delayed Release (Dr/Ec) 81 mg PO BREAKFAST Qty: 0 0RF fluticasone propionate [Flonase Allergy Relief] 50 mcg/actuation spray,suspension 2 spray INTRANASAL QHS PRN (Reason: allergies) lisinopril 2.5 mg tablet 2.5 mg PO DAILY Qty: 90 3RF metoprolol succinate 25 mg tablet extended release 24 hr 12.5 mg PO DAILY Qty: 90 3RF rosuvastatin [Crestor] 5 mg tablet 5 mg PO DAILY Qty: 90 3RF Primary Care Provider: [facility] Doctor,Out of Referrals: NOT,DEFINED [Non-Staff] - Activity Restrictions/Additional Instructions: Follow-up with your primary care physician in 3 to 5 days. Print Language: Irish Disposition Disposition: Home, Self Care
[2024-10-24] MEDS: Orphenadrine 60 MG/2 ML Ampul IM (11:58)
[2024-10-24] MEDS: Morphine 4 MG/ML Syringe IM (12:00)
[2024-10-24] MEDS: Ketorolac 30 MG/ML Syringe IM (12:00)
--- NOTE | 2024-10-24 12:15 | RAD_ITS ---
PROCEDURE: CHEST 1 VIEW (PORTABLE) REASON FOR EXAM: Cough and dyspnea. TECHNIQUE: Two-view AP portable upright chest. COMPARISON: None. RAD/Chest 1 View (Portable) IMPRESSION: Underlying chronic lung changes and hyperinflation are seen. No acute pneumonic process is identified. The cardiomediastinal silhouette is within the normal range. No pleural effusion or pneumothorax is seen. No acute osseous process is identified. Reading Location: [id number]
[2024-10-24 12:32] VITALS: BP 110/76; PULSE 102; RESP 18; TEMP 37.7; O2SAT 95
[2024-10-24 12:57] VITALS: BP 101/68; PULSE 80; RESP 16; TEMP 37.6; O2SAT 92
[2024-10-24 13:32] VITALS: BP 101/68; PULSE 68; RESP 16; TEMP 37.6; O2SAT 94
== END 2024-10-24 13:35 | disposition home or self-care (01) ==
PROVIDERS: Emergency Provider Emergency Medicine; Referring Provider Emergency Medicine; Visit Provider Emergency Medicine
DX: J10.1 Influenza due to other identified influenza virus with other respiratory manifestations (principal); M54.50 Low back pain, unspecified; I25.10 Atherosclerotic heart disease of native coronary artery without angina pectoris; I25.2 Old myocardial infarction; F17.200 Nicotine dependence, unspecified, uncomplicated; Z95.5 Presence of coronary angioplasty implant and graft; Z79.82 Long term (current) use of aspirin; Z79.899 Other long term (current) drug therapy
CPT/HCPCS: 71045; 87631; 96372; 99282

== ENCOUNTER → 2025-05-14 | Outpatient (CLI) | payer OTHER, SELFPAY ==
--- OUTSIDE RECORDS SUMMARY | 2025-05-14 08:09 | XMS RPT_ITS | CCD ---
Author Organization [facility] Inform ion Partnership [facility] Care Team Providers Care Leadite Man Name Role Phone Dr. Yo Nova Emergency Provider [phone] URBAN MARTINES Primary Care Provider Dr. Roberta Ochoa Admit Provider Dr. Roberta Ochoa Attending Provider [phone] Roberta Ocoha Other Provider Dr. Jesus Flannery Attending Provider Dr. Priya Lowe Attending Provider [phone] Town Doctor, Out of Primary Care Provider Unavai labglen [facility] Doctor, Out of Referring Provider Unavailab Dr. Jesus Dumont Attending Provider Ungur, Remus Attending Unavailable Ungur, Remus Referring Unavailable Town Doctor, Out of Primary Care Unavailable STAVROU, CHEL Primary Care Unavailable STAVROU, CHEL Attending Unavailable STAVROU, CHEL Referring Unavailable STAVROU, CHEL Primary Care Unavailable STAVROU, CHEL Referring Unavailable Gabriela Mcgregor Attending Unavail able Medications Current Medications Medication Drug Class(es) Dates Sig (Normalized) Sig (Original) aspirin 81 mg delayed release oral tablet (2 sources) Platelet Aggregation Inhibitor, Nonsteroidal Anti-inflammatory Drug Start: 07-29-2022 take 81 mg by mouth at breakfast Aspirin Active 81 MG PO WITH BREAKFAST 0 July 29, 2022 1:00am clopidogrel 75 mg oral tablet (5 sources) P2Y12 Platelet Inhibitor Start: 06-23-2023 take 75 mg by mouth once daily Clopidogrel Active 75 MG PO DAILY June 23, 2023 12:00am Start: 07-29-2022 End: 06-20-2023 take 75 mg by mouth once daily Clopidogrel Discontinue d 75 MG PO DAILY February 03, 2023 9:12am June 20, 2023 3:34pm fluticasone propionate 0.05 mg/actuat metered dose nasal spray (4 sources) Corticosteroid Start: 07-27-2022 End: 10-17-2022 Fluticasone Propionate (Flonase Allergy Relief) 50 mcg/actuation spray,suspension Active 2 SPRAY INTRANASAL AT BEDTIME October 17, 2022 2:15pm lisinopril 2.5 mg oral tablet (5 sources) Angiotensin Converting Enzyme Inhibitor Start: 02-09-2023 End: 06-20-2023 take 2.5 mg by mouth once daily Lisinopril Active 2.5 MG PO DAILY June 20, 2023 3:34pm Start: 10-17-2022 End: 02-03-2023 take 2.5 mg by mouth once daily Lisinopril Discontinued 2.5 MG PO DAILY November 08, 2022 2:22pm February 03, 2023 9:11am Completed/Discontinued Medications Medication Drug Class(es) Dates Sig (Normalized) Sig (Original) atorvastatin 80 mg oral tablet (3 sources) HMG-CoA Reductase Inhibitor Start: 07-29-2022 End: 02-03-2023 take 80 mg by mouth at bedtime Atorvastatin Discontinued 80 MG PO AT BEDTIME August 29, 2022 11:08am February 03, 2023 8:55am On Hold: muscle aches ibuprofen 200 mg oral tablet (3 sources) Nonsteroidal Anti-inflammatory Drug Start: 07-27-2022 End: 06-20-2023 take 1 tablet by mouth every six hours Ibuprofen (Advil) 200 mg Tablet Discontinued 200 MG PO EVERY 6 HOURS July 27, 2022 1:00am June 20, 2023 3:11pm 24 hr metoprolol succinate 25 mg extended release oral tablet (3 sources) beta-Adrenergic Mario Start: 08-29-2022 End: 06-20-2023 take 12.5 mg by mouth once daily Metoprolol Succinate Discontinued 12.5 MG PO DAILY June 20, 2023 3:31pm June 20, 2023 3:35pm rosuvastatin calcium 5 mg oral tablet (5 sources) HMG-CoA Reductase Inhibitor Start: 11-01-2022 End: 06-20-2023 take 1 tablet by mouth once daily Rosuvastatin (Crestor) 5 mg tablet Discontinued 5 MG PO DAILY 90 June 20, 2023 3:31pm June 20, 2023 3:35pm sacubitril 24 mg / valsartan 26 mg oral tablet (1 source) Angiotensin 2 Receptor Mario Start: 02-03-2023 End: 02-09-2023 take 1 tablet by mouth twice daily Sacubitril-Valsart an (Entresto) 24-26 mg tablet Discontinued 1 TABLET PO TWICE A DAY 180 February 03, 2023 12:00am February 09, 2023 2:00pm Problems Active Problems Problem Classification Problem Date Documented Da te Episodic/Chronic Acute myocardial infarction (3 sources) Myocardial infarction; Translations: [Non-ST elevation (NSTEMI) myocardial infarction] Chronic Cardiac dysrhythmias (3 sources) Bradycardia; Translations: [Bradycardia, unspecified] Episodic Coronary atherosclerosis and other heart disease (9 sources) Coronary arteriosclerosis; Translations: [Atherosclerotic heart disease of [place] coronary artery without angina pectoris] Onset: 07-11-2024 08-06-2022 Chronic Diabetes mellitus without complication (3 sources) Hyperglycemia; Translations: [Hyperglycemia, unspecified] Episodic Nonspecific chest pain (3 sources) Chest pain; Translations: [Chest pain, unspecified] Episodic Other hematologic conditions (2 sources) Erythrocytosis; Translations: [Secondary polycythemia] 08-06-2022 Episodic Other hematologic conditions (1 source) Secondary polycythemia; Translations: [Polycythemia, secondary] Episodic Residual codes; unclassified (1 source) Tobacco user; Translations: [Tobacco use] 08-29-2022 Episodic Unclassified (1 source) Cough, unspecified; Translations: [Cough, unspecified] Onset: 11-07-2024 Past or Other Problems Problem Classification Problem Date Documented Da te Episodic/Chronic Coronary atherosclerosis and other heart disease (1 source) Presence of coronary angioplasty implant and graft; Translations: [Percutaneous transluminal coronary angioplasty status] Onset: 07-27-2022 06-20-2023 Episodic Results Test Name Value Interpretation Reference Range Facility Chest 1 View (Portable)on Chest 1 View (Portable) [facility] Imaging Services [address] [place] [address] [id number] Chest 1 View (Portable) MR#: [id number] Acct: [id number] Name: ANTHONY DEUTSCH Rep #: [id number] : 1970 M 54 From: Gee Barnes PCP: OUT OF TOWN DOCTOR Status: [facility] ER Study: Chest 1 View (Portable) Date of Exam: 10/24/24 Exam# [id number] Ordering Dr: Suma Rodriguez DO PROCEDURE: CHEST 1 VIEW (PORTABLE) REASON FOR EXAM: Cough and dyspnea. TECHNIQUE: Two-view AP portable upright chest. COMPARISON: None. RAD/Chest 1 View (Portable) IMPRESSION: Underlying chronic lung changes and hyperinflation are seen. No acute pneumonic process is identified. The cardiomediastinal silhouette is within the normal range. No pleural effusion or pneumothorax is seen. No acute osseous process is identified. Reading Location: [address] CC: Dr. 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: Signed Normal [facility] Emergency Department Summary on 10-24-2024 Emergency Department Summary [facility] Medical Records Department [address] [place] [id number] Emergency Department Summary 10/24/24 MR#: [id number] Acct: [id number] Name: ANTHONY DEUTSCH Rep #: [id number] : 1970 54 From: Suma Rodriguez DO PCP: OUT OF TOWN DOCTOR Status:[facility] ER Location: ED HPI History of Present Illness Chief Complaint: General Illness Detail of Chief Complaint: Cough and headache and body ache Informant: patient Narrative Narrative: Patient presents to the emergency department complaint not feeling well x 2 days. Patient states that he thought he was get bronchitis so he called his primary care physician who called in a Z-Len. Cough mostly nonproductive. He coughs so hard as well that he thinks he pulled some muscles in his back and now having pain with movement. Describes a headache. Subjective fever and chills. Intermittently he will have some mild discomfort that radiates from his back down to the left lateral thigh. [facility] Medical History Cardiomyopathy, ischemic Atherosclerosis of coronary artery of [place] heart without angina pectoris NSTEMI (non-ST elevated myocardial infarction) Bradycardia CAD (coronary artery disease) Tobacco abuse Home Medications ???Medication ???Instructions ???Recorded ???Last Taken ???Type aspirin 81 mg tablet,delayed 81 mg PO BREAKFAST #0 tabs 2 10/23/24 20:00 Rx release fluticasone propionate 50 2 spray intranasal QHS PRN 3 Unknown History mcg/actuation nasal allergies spray,suspension (Flonase Allergy Relief) lisinopril 2.5 mg tablet 2.5 mg PO DAILY #90 tabs 07/11/24 10/23/24 20:00 Rx metoprolol succinate 25 mg 12.5 mg (1/2 x 25 mg) PO DAILY #90 07/11/24 10/23/24 20:00 Rx tablet,extended release 24 hr tabs rosuvastatin 5 mg tablet (Crestor) 5 mg PO DAILY #90 tabs 07/11/24 10/23/24 Rx oseltamivir 75 mg capsule (Tamiflu) 75 mg PO BID 5 days #10 caps Unknown Rx Allergy/AdvReac Type Severity Reaction Status Date / Time No Known Allergies Allergy Verified 10/24/24 11:38 Family History Mother Lymphoma Leukemia Father Esophageal cancer CAD (coronary artery disease) Surgical History History of coronary artery stent placement (07/27/22) Hx of appendectomy Previous back surgery Social History household members: spouse housing: house Smoking Status: Light Smoker (<10/day) alcohol intake: never substance use type: does not use what type of physical activity do you participate in: none ROS ROS ED Review of Systems ROS Unobtainable: other Constitutional Constitutional ED: Reports lethargy; Denies chills, fever(s), sweats or weight loss Eyes Eyes: Denies blurry vision, change in vision or diplopia ENT ENT ED: Denies rhinorrhea or sore throat Cardiovascular Cardiovascular: Denies chest pain, orthopnea or racing heartbeat Respiratory/Chest Respiratory/Chest: Reports cough; Denies dyspnea, dyspnea on exertion, orthopnea or sputum Gastrointestinal Gastrointestinal: Denies abdominal pain, diarrhea, nausea or vomiting Genitourinary Genitourinary ED: Denies dysuria, hematuria or urinary frequency Musculoskeletal Musculoskeletal: Reports back pain and myalgias; Denies arthralgias or neck pain Integumentary Denies abscess, Abrasions or rash Neurologic Neurologic: Denies headache(s) or weakness Psychiatric Psychiatric: Denies anxiety, depression or suicidal thoughts Endocrine Endocrinology: Denies polydipsia, polyphagia or polyuria Hematologic/Lymphatic Hematologic/Lymphatic: Denies easy bleeding, easy bruising or lymphadenopathy Allergic/Immunologic Allergic/Immunologic ED: Denies mouth swelling, tongue swelling or urticaria EXAM Physical Exam Const Vital Signs: 10/24/24 11:34 10/24/24 11:37 10/24/24 12:32 Temperature 99 F 99 F 100 F H Temperature Source Oral Oral Temporal Pulse Rate 101 H 102 H 102 H Respiratory Rate 20 H 20 H 18 Blood Pressure 98/73 98/73 110/76 Blood Pressure Mean 81 81 87 Pulse Ox 95 95 95 Oxygen Delivery Method Room Air Room Air Room Air 10/24/24 12:57 10/24/24 12:57 Temperature 99.7 F H Temperature Source Temporal Pulse Rate 80 Respiratory Rate 16 Blood Pressure 101/68 101/68 Blood Pressure Mean 79 79 Pulse Ox 92 Oxygen Delivery Method Room Air Positive well nourished and well developed General Appearance ED: well developed and NAD HEENT Reports TM's clear and moist mucous membranes normocephalic and atraumatic; Negative for trauma or tenderness Tympanic Membrane ED: Yes TM's clear Eyes (more content not included)... Normal [facility] M100.678on 10-24-2024 SARS-CoV-2 (COVID-19) Ab IA Ql Normal Reference Range = Negative FLUABV+SARS-CoV-2+RSV Pnl Resp ARCHANA+probe GeneXpert Instrument, PCR method FLUABV+SARS-CoV-2+RSV Pnl Resp ARCHANA+probe RESULTS CALLED TO Daniel MASSEY 10/24/24 [id number] Lakisha Saeed. REPORT READ BACK BY . SARS-CoV-2 (COVID 19) Negative INFLUENZA A A Positive A INFLUENZA B Negative RSV PCR Negative INFLUENZAE A [facility] Comment on above: Performed By: #### M 100.678 #### [facility] [address] [place], [address] Cardiology Visit Reporton Cardiology Visit Report [facility] [address] [place] [address] OFFICE VISIT Date of Service: 07/11/24 MR#: [id number] Acct: [id number] Name: ANTHONY DEUTSCH Rep #: [id number] : 1970 Provider: MIRIAN Braden Age/Sex: 54/M Location: [facility] Status: Signed HPI HPI History of Present Illness Details: Anthony Deutsch is a 53 year old gentleman that presented to [facility] emergency room on 07/27/2022 with chest pain that was associated with profound weakness. His initial EKG demonstrated sinus rhythm with less than 1 mm of elevation in the inferior leads and sinus bradycardia. His initial troponin was 7. Because of his concerning chest discomfort he was urgently taken to the [facility]. Heart catheterization demonstrated moderate disease of the LAD with myocardial bridging of the LAD, mild luminal irregularities of the circumflex. Mid RCA is occluded with collateral flow from left to right. He did undergo stenting of his RCA. During the stenting he did develop an asystolic event in which he received CPR but ROSC was achieved quickly. He did not require intubation. Patient was started on metoprolol however he became bradycardic with heart rates in the 30s and this was discontinued. Echocardiogram demonstrated an ejection fraction of 45 to 50% with inferior and inferior septal hypokinesis. He was discharged home on Plavix, aspirin and high intensity statin. Because of his low blood pressure and bradycardia he was not started on metoprolol or an HERBERT inhibitor. Repeat Echocardiogram 01/31 demonstrated 47%. Pt is having concerns with muscle cramps in his arms and legs. He wonders if this is related to her crestor as he did not tolerate lipitor. He does not have any chest discomfort/heaviness/t ightness. His exercise tolerance is stable for his age. He does not have any worsening symptoms of shortness of breath. He denies any PND. He does not have any orthopnea. He does not have any symptoms of congestive heart failure. He does not have any palpitations that he is aware of. He does not have any lightheadedness or dizziness. He does not have any near-syncope or syncope. He does not have any lower extremity edema. He does not have any symptoms of claudication. Intake Vital Signs 06/20/23 15:07 07/11/24 15:22 Height 5 ft 10 in 5 ft 10 in Weight: 169 lb BMI 24.2 BP 106/65 Blood Pressure Location Lt brachial Position Sitting Respiration 18 Pulse 85 Pulse Source Monitor Pulse Oximetry (%) 98 Intake Visit Reasons: 1 Y FU Bet Taker Required: No Is patient in pain?: No Allergies No Known Allergies Allergy (Verified 06/20/23 15:11) Medications ???Medication ???Instructions ???Recorded ???Confirmed ???Type aspirin 81 mg tablet,delayed 81 mg PO BREAKFAST #0 tabs 07/29/22 07/11/24 Rx release fluticasone propionate 50 2 spray intranasal QHS PRN 10/17/22 07/11/24 History mcg/actuation nasal allergies spray,suspension (Flonase Allergy Relief) lisinopril 2.5 mg tablet 2.5 mg PO DAILY #90 tabs 06/20/23 07/11/24 Rx metoprolol succinate 25 mg 12.5 mg (1/2 x 25 mg) PO DAILY #90 06/20/23 07/11/24 Rx tablet,extended release 24 hr tabs rosuvastatin 5 mg tablet (Crestor) 5 mg PO DAILY #90 tabs 06/20/23 07/11/24 Rx PFSH Medical History Cardiomyopathy, ischemic Atherosclerosis of coronary artery of [place] heart without angina pectoris NSTEMI (non-ST elevated myocardial infarction) Bradycardia CAD (coronary artery disease) Tobacco abuse Surgical History History of coronary artery stent placement (07/27/22) Hx of appendectomy Previous back surgery Family History Mother Lymphoma Leukemia Father Esophageal cancer CAD (coronary artery disease) Social History household members: spouse housing: house Smoking Status: Current every day smoker tobacco type: cigarettes alcohol intake: never substance use type: does not use what type of physical activity do you participate in: none ROS Const Const: Negative for fatigue, weakness, headache(s), frequent falls, excessive sweating, weight gain or weight loss Eyes Eyes: Negative for blind spots, loss of peripheral vision, transient loss of vision, blurry vision, change in vision or double vision ENT ENT: Negative for headache(s), dizziness, tinnitus, Nosebleed/epistaxis or balance problems Cardio Chest Pain: No Palpitations: No Edema: None Muscle aches with walking: None Resp Respiratory: Negative for SOB with activity, SOB at rest, SOB orthopnea SOB lying down or (more content not included)... Normal [facility] PSA Total (Rflx Free)on 06-11 COMMENT Comment Normal . [facility] Comment on above: Result Comment: The percent free PSA is performed on a reflex basis only when the total PSA is between 4.0 and 10.0 ng/mL. Performed at: [facility] [id number] Reimbursement Manager: Estevan Chao PhD, Phone: [phone] Performed By: #### L 500.4050, L3110.0100, L3100.7870, L500.4100, L501.9520, L100.0100 #### [facility] [address] [place], [address] PSA, TOTAL 1.2 ng/mL Normal 0.0-4.0 [facility] Comment on above: Result Comment: Bennie VICTOR methodology. According to the [employer] [employer], Serum PSA should decrease and remain at undetectable levels after radical prostatectomy. The AUA defines biochemical recurrence as an initial PSA value 0.2 ng/mL or greater followed by a subsequent confirmatory PSA value 0.2 ng/mL or greater. Values obtained with different assay methods or kits cannot be used interchangeably. Results cannot be interpreted as absolute evidence of the presence or absence of malignant disease. Performed By: #### L 500.4050, L3110.0100, L3100.7870, L500.4100, L501.9520, L100.0100 #### [facility] [address] [place], [address] CRP, High Sensitivity [id number] on 06-21-2024 CRP, HIGH SENS 0.75 mg/L Normal 0.00-3.00 [facility] Comment on above: Result Comment: Rela tive Risk for Future Cardiovascular Event Low <1.00 Average 1.00 - 3.00 High >3.00 Performed at: [facility] [address] [id number] Reimbursement Manager: Estevan Chao PhD, Phone: [phone] Performed By: #### L 500.4050, L3110.0100, L3100.7870, L500.4100, L501.9520, L100.0100 #### [facility] [address] [place], [address] CBC W/Diff, Automatedon 06-11-2023 Absolute Lymph 2.60 X10 3/uL Normal 0.83-4.51 [facility] Comment on above: Performed By: #### L 500.4050, L3110.0100, L3100.7870, L500.4100, L501.9520, L100.0100 #### [facility] [address] [place], [address] Absolute Neut 5.0 X10 3/uL Normal 2.0-7.7 [facility] Comment on above: Performed By: #### L 500.4050, L3110.0100, L3100.7870, L500.4100, L501.9520, L100.0100 #### [facility] [address] [place], [address] Basophils/100 WBC (Bld) 0.6 % Normal 0-1 [facility] Comment on above: Performed By: #### L 500.4050, L3110.0100, L3100.7870, L500.4100, L501.9520, L100.0100 #### [facility] [address] [place], [address] Eosinophils/100 WBC (Bld) 5.1 % High 0-5 [facility] Comment on above: Performed By: #### L 500.4050, L3110.0100, L3100.7870, L500.4100, L501.9520, L100.0100 #### [facility] [address] [place], [address] Erythrocyte distribution width (RBC) [Ratio] 13.2 % Normal 11.6-14.6 [facility] Comment on above: Performed By: #### L 500.4050, L3110.0100, L3100.7870, L500.4100, L501.9520, L100.0100 #### [facility] [address] [place], [address] Hematocrit (Bld) [Volume fraction] 49.3 % Normal 40-54 [facility] Comment on above: Performed By: #### L 500.4050, L3110.0100, L3100.7870, L500.4100, L501.9520, L100.0100 #### [facility] [address] [place], [address] Hemoglobin (Bld) [Mass/Vol] 16.1 g/dL Normal 13.0-16.5 [facility] Comment on above: Performed By: #### L 500.4050, L3110.0100, L3100.7870, L500.4100, L501.9520, L100.0100 #### [facility] [address] [place], [address] IG% 0.300 Normal 0.0-0.9 [facility] Comment on above: Result Comment: IG% - Immature Granulocytes (promyelocytes, myelocytes and metamyelocytes) > 1% indicates that a LEFT SHIFT is Present. Performed By: #### L 500.4050, L3110.0100, L3100.7870, L500.4100, L501.9520, L100.0100 #### [facility] [address] [place], [address] Lymphocytes/100 WBC (Bld) 29.9 % Normal 19-41 [facility] Comment on above: Performed By: #### L 500.4050, L3110.0100, L3100.7870, L500.4100, L501.9520, L100.0100 #### [facility] [address] [place], [address] MCH (RBC) [Entitic mass] 30.7 pg Normal 27.0-32.0 [facility] Comment on above: Performed By: #### L 500.4050, L3110.0100, L3100.7870, L500.4100, L501.9520, L100.0100 #### [facility] [address] [place], [address] MCHC (RBC) [Mass/Vol] 32.7 g/dL Normal 32-36 [facility] Comment on above: Performed By: #### L 500.4050, L3110.0100, L3100.7870, L500.4100, L501.9520, L100.0100 #### [facility] [address] [place], [address] MCV (RBC) [Entitic vol] 93.9 fL Normal 80-94 [facility] Comment on above: Performed By: #### L 500.4050, L3110.0100, L3100.7870, L500.4100, L501.9520, L100.0100 #### [facility] [address] [place], [address] Monocytes/100 WBC (Bld) 7.1 % Normal 0-10 [facility] Comment on above: Performed By: #### L 500.4050, L3110.0100, L3100.7870, L500.4100, L501.9520, L100.0100 #### [facility] [address] [place], [address] Neutrophils/100 WBC (Bld) 57.0 % Normal 47-70 [facility] Comment on above: Performed By: #### L 500.4050, L3110.0100, L3100.7870, L500.4100, L501.9520, L100.0100 #### [facility] [address] [place], [address] Nucleated RBC (Bld) [#/Vol] 0 10*3/uL Normal 0-5 [facility] Comment on above: Performed By: #### L 500.4050, L3110.0100, L3100.7870, L500.4100, L501.9520, L100.0100 #### [facility] [address] [place], [address] Platelet mean volume (Bld) [Entitic vol] 9.9 fL Normal 6.2-12.0 [facility] Comment on above: Performed By: #### L 500.4050, L3110.0100, L3100.7870, L500.4100, L501.9520, L100.0100 #### [facility] [address] [place], [address] Platelets (Bld) [#/Vol] 293 10*3/uL Normal 150-450 [facility] Comment on above: Performed By: #### L 500.4050, L3110.0100, L3100.7870, L500.4100, L501.9520, L100.0100 #### [facility] [address] [place], [address] RBC (Bld) [#/Vol] 5.25 10*6/uL Normal 4.6-6.2 [facility] Comment on above: Performed By: #### L 500.4050, L3110.0100, L3100.7870, L500.4100, L501.9520, L100.0100 #### [facility] [address] [place], [address] RDW SD 46.0 fl High 35.1-43.9 [facility] Comment on above: Performed By: #### L 500.4050, L3110.0100, L3100.7870, L500.4100, L501.9520, L100.0100 #### [facility] [address] [place], [address] WBC (Bld) [#/Vol] 8.7 10*3/uL Normal 4.4-11.0 [facility] Comment on above: Performed By: #### L 500.4050, L3110.0100, L3100.7870, L500.4100, L501.9520, L100.0100 #### [facility] [address] [place], [address] Comprehensive Metabolic Prof [facility] 06-20-2024 Albumin [Mass/Vol] 3.8 g/dL Normal 3.2-5.0 [facility] Comment on above: Order Comment: DR IRIS ONEILL TSH RFLX TO FT4 Performed By: #### L 500.4050, L3110.0100, L3100.7870, L500.4100, L501.9520, L100.0100 #### [facility] [address] [place], [address] Albumin/Globulin [Mass ratio] 1.2 {ratio} Normal 0.9-2.4 [facility] Comment on above: Order Comment: DR IRIS ONEILL TSH RFLX TO FT4 Performed By: #### L 500.4050, L3110.0100, L3100.7870, L500.4100, L501.9520, L100.0100 #### [facility] [address] [place], [address] ALK P 79 U/L Normal 45-117 [facility] Comment on above: Order Comment: DR IRIS ONEILL TSH RFLX TO FT4 Performed By: #### L 500.4050, L3110.0100, L3100.7870, L500.4100, L501.9520, L100.0100 #### [facility] [address] [place], [address] ALT [Catalytic activity/Vol] 24 U/L Normal 16-61 [facility] Comment on above: Order Comment: DR IRIS ONEILL TSH RFLX TO FT4 Performed By: #### L 500.4050, L3110.0100, L3100.7870, L500.4100, L501.9520, L100.0100 #### [facility] [address] [place], [address] AST [Catalytic activity/Vol] 21 U/L Normal 15-37 [facility] Comment on above: Order Comment: DR IRIS ONEILL TSH RFLX TO FT4 Performed By: #### L 500.4050, L3110.0100, L3100.7870, L500.4100, L501.9520, L100.0100 #### [facility] [address] [place], [address] Bilirubin [Mass/Vol] 0.70 mg/dL Normal 0.20-1.00 [facility] Comment on above: Order Comment: DR IRIS ONEILL TSH RFLX TO FT4 Result Comment: For patients on eltrombopag therapy, use of Dimension [place] TBIL is not recommended. Performed By: #### L 500.4050, L3110.0100, L3100.7870, L500.4100, L501.9520, L100.0100 #### [facility] [address] [place], [address] BUN/CRE 10.1 RATIO Normal 10-20 [facility] Comment on above: Order Comment: DR IRIS ONEILL TSH RFLX TO FT4 Performed By: #### L 500.4050, L3110.0100, L3100.7870, L500.4100, L501.9520, L100.0100 #### [facility] [address] [place], [address] CA,Total 9.8 mg/dL Normal 8.5-10.1 [facility] Comment on above: Order Comment: DR IRIS ONEILL TSH RFLX TO FT4 Performed By: #### L 500.4050, L3110.0100, L3100.7870, L500.4100, L501.9520, L100.0100 #### [facility] [address] [place], [address] Chloride [Moles/Vol] 105 mmol/L Normal 98-107 [facility] Comment on above: Order Comment: DR IRIS ONEILL TSH RFLX TO FT4 Performed By: #### L 500.4050, L3110.0100, L3100.7870, L500.4100, L501.9520, L100.0100 #### [facility] [address] [place], [address] CO2 [Moles/Vol] 28.0 mmol/L Normal 21.0-32.0 [facility] Comment on above: Order Comment: DR IRIS ONEILL TSH RFLX TO FT4 Performed By: #### L 500.4050, L3110.0100, L3100.7870, L500.4100, L501.9520, L100.0100 #### [facility] [address] [place], [address] Creatinine [Mass/Vol] 1.09 mg/dL Normal 0.70-1.30 [facility] Comment on above: Order Comment: DR IRIS ONEILL TSH RFLX TO FT4 Result Comment: The validity of the calculated GFR GFRAA in patients over 70 years has not been determined. Clinical correlation is essential. Performed By: #### L 500.4050, L3110.0100, L3100.7870, L500.4100, L501.9520, L100.0100 #### [facility] [address] [place], [address] EST GFR - AA 91 mL/min Normal >60 [facility] Comment on above: Order Comment: OR NINO TSH RFLX TO FT4 Result Comment: Afri can [place] GFR Calc Performed By: #### L 500.4050, L3110.0100, L3100.7870, L500.4100, L501.9520, L100.0100 #### [facility] [address] [place], [address] GAP 4 Low 5-15 [facility] Comment on above: Order Comment: DR IRIS ONEILL TSH RFLX TO FT4 Performed By: #### L 500.4050, L3110.0100, L3100.7870, L500.4100, L501.9520, L100.0100 #### [facility] [address] [place], [address] GFR/1.73 sq M.predicted among non-blacks MDRD (S/P/Bld) [Vol rate/Area] 75 mL/min/{1.73_m2} Normal >60 [facility] Comment on above: Order Comment: DR IRIS ONEILL TSH RFLX TO FT4 Result Comment: Non- GFR Calc Performed By: #### L 500.4050, L3110.0100, L3100.7870, L500.4100, L501.9520, L100.0100 #### [facility] [address] [place], [address] Globulin (S) [Mass/Vol] 3.3 g/dL Normal 2.2-4.2 [facility] Comment on above: Order Comment: DR IRIS ONEILL TSH RFLX TO FT4 Performed By: #### L 500.4050, L3110.0100, L3100.7870, L500.4100, L501.9520, L100.0100 #### [facility] [address] [place], [address] Glucose [Mass/Vol] 96 mg/dL Normal 74-106 [facility] Comment on above: Order Comment: DR IRIS ONEILL TSH RFLX TO FT4 Performed By: #### L 500.4050, L3110.0100, L3100.7870, L500.4100, L501.9520, L100.0100 #### [facility] [address] [place], [address] Potassium [Moles/Vol] 5.0 mmol/L Normal 3.5-5.1 [facility] Comment on above: Order Comment: DR IRIS ONEILL TSH RFLX TO FT4 Performed By: #### L 500.4050, L3110.0100, L3100.7870, L500.4100, L501.9520, L100.0100 #### [facility] [address] [place], [address] Sodium [Moles/Vol] 136 mmol/L Normal 136-145 [facility] Comment on above: Order Comment: DR IRIS ONEILL TSH RFLX TO FT4 Performed By: #### L 500.4050, L3110.0100, L3100.7870, L500.4100, L501.9520, L100.0100 #### [facility] [address] [place], [address] T PROT 7.1 g/dL Normal 6.4-8.2 [facility] Comment on above: Order Comment: DR IRIS ONEILL TSH RFLX TO FT4 Performed By: #### L 500.4050, L3110.0100, L3100.7870, L500.4100, L501.9520, L100.0100 #### [facility] [address] [place], [address] Urea nitrogen [Mass/Vol] 11 mg/dL Normal 7-18 [facility] Comment on above: Order Comment: DR IRIS ONEILL TSH RFLX TO FT4 Performed By: #### L 500.4050, L3110.0100, L3100.7870, L500.4100, L501.9520, L100.0100 #### [facility] [address] [place], [address] Lipid Profileon 06-20-2024 Cholesterol [Mass/Vol] 138 mg/dL Normal 200 [facility] Comment on above: Order Comment: DR IRIS ONEILL TSH RFLX TO FT4 Result Comment: <200 mg/dL Desirable 200-240 mg/dL Borderline >240 mg/dL High Risk Performed By: #### L 500.4050, L3110.0100, L3100.7870, L500.4100, L501.9520, L100.0100 #### [facility] [address] [place], [address] Cholesterol in HDL [Mass/Vol] 52 mg/dL Normal [facility] Comment on above: Order Comment: DR IRIS ONEILL TSH RFLX TO FT4 Result Comment: The drugs N-Acetylcysteine and Metamizole may falsely depress this assay. Reference Range HDL <40 mg/dL Low HDL Cholesterol HDL >or= 60 mg/dL High HDL Cholesterol Performed By: #### L 500.4050, L3110.0100, L3100.7870, L500.4100, L501.9520, L100.0100 #### [facility] [address] [place], [address] Cholesterol in LDL [Mass/Vol] 67 mg/dL Normal 0-130 [facility] Comment on above: Order Comment: DR IRIS ONEILL TSH RFLX TO FT4 Performed By: #### L 500.4050, L3110.0100, L3100.7870, L500.4100, L501.9520, L100.0100 #### [facility] [address] [place], [address] Cholesterol in VLDL [Mass/Vol] 19 mg/dL Normal 5-40 [facility] Comment on above: Order Comment: DR IRIS ONEILL TSH RFLX TO FT4 Performed By: #### L 500.4050, L3110.0100, L3100.7870, L500.4100, L501.9520, L100.0100 #### [facility] [address] [place], [address] Triglyceride [Mass/Vol] 93 mg/dL Normal [facility] Comment on above: Order Comment: DR IRIS ONEILL TSH RFLX TO FT4 Result Comment: The drugs N-Acetylcysteine and Metamizole may falsely depress this assay. Serum Triglycerides Reference Interval Normal <150 mg/dL Borderline high 150 - 199 mg/dL High 200 - 499 mg/dL Very High > or = 500 mg/dL Performed By: #### L 500.4050, L3110.0100, L3100.7870, L500.4100, L501.9520, L100.0100 #### [facility] [address] [place], [address] Thyroid Stim Hormone (TSH)on 06-20-2024 TSH 1.900 uIU/mL Normal 0.358-3.740 [facility] Comment on above: Order Comment: DR IRIS ONEILL TSH RFLX TO FT4 Performed By: #### L 500.4050, L3110.0100, L3100.7870, L500.4100, L501.9520, L100.0100 #### [facility] [address] [place], [address] Basophil percentageOrdered B y: [place] Alma Delia on 06-20-2023 Bilirubin [Mass/Vol] 0.60 mg/dL 0.20-1.00 [facility] Comment on above: For patients on eltr ombopag therapy, use of Dimension [place] TBIL is not recommended. Cholesterol [Mass/Vol] 128 mg/dL <200 [facility] Comment on above: <200 mg/dL Desirable 200-240 mg/dL Borderline >240 mg/dL High Risk Protein [Mass/Vol] 7.2 g/dL 6.4-8.2 [facility] Triglyceride [Mass/Vol] 103 mg/dL <199 [facility] Comment on above: The drugs N-Acetylcy steine and Metamizole may falsely depress this assay.Serum Triglycerides Reference Interval Normal <150 mg/dL Borderline high 150 - 199 mg/dL High 200 - 499 mg/dL Very High > or = 500 mg/dL Direct bilirubinOrdered By: Jesus Flannery on 06-20-2023 Bilirubin.direct [Mass/Vol] 0.19 mg/dL 0.00-0.30 [facility] - Chemistry and C hemistry - challengeOrdered By: Jesus Flannery on 06-20-2023 ALP [Catalytic activity/Vol] 74 U/L 45-117 [facility] ALT [Catalytic activity/Vol] 26 U/L 16-61 [facility] Globulin (S) [Mass/Vol] 3.3 g/dL 2.2-4.2 [facility] Serum or plasma albumin lila urement (mass/volume)Ordered By: Jesus Flannery on 06-20-2023 Albumin [Mass/Vol] 3.9 g/dL 3.2-5.0 [facility] Serum or plasma cholesterol in HDL measurement (mass/volume)Ordered By: Jesus Flannery on 06-20-2023 Cholesterol in HDL [Mass/Vol] 46 mg/dL >40 [facility] Comment on above: The drugs N-Acetylcy steine and Metamizole may falsely depress this assay. Reference Range HDL <40 mg/dL Low HDL Cholesterol HDL >or= 60 mg/dL High HDL Cholesterol Serum or plasma cholesterol in VLDL measurement (mass/volume)Ordered By: Jesus Flannery on 06-20-2023 Cholesterol in VLDL [Mass/Vol] 21 mg/dL 5-40 [facility] Serum or plasma low density lipoprotein (LDL) cholesterol measurement (mass/volume)Ordered By: Jesus Flannery on 06-20-2023 Cholesterol in LDL [Mass/Vol] 61 mg/dL 0-130 [facility] Thin prep Papanicolaou smear with manual screeningOrdered By: Jesus Flannery on 06-20-2023 Thin prep Papanicolaou smear with manual screening 20 U/L 15-37 [facility] Absolute lymphocyte counton 07-29-2022 Lymphocytes Auto (Unsp spec) [#/Vol] 3.14 10*3/uL 0.83-4.51 [facility] Work Phone: [phone] Basophil percentageon 2021 Basophil percentage 2.5 mg/dL 2.5-4.9 [facility] Work Phone: Basophils/100 WBC (Bld) 0.5 % 0-1 [facility] Work Phone: Chloride [Moles/Vol] 112 mmol/L 98-107 [facility] Work Phone: Eosinophils/100 WBC (Bld) 4.6 % 0-5 [facility] Work Phone: Glucose [Mass/Vol] 91 mg/dL 74-106 [facility] Work Phone: [phone] Neutrophils (Bld) [#/Vol] 3.7 10*3/uL 2.0-7.7 [facility] Work Phone: Neutrophils/100 WBC (Bld) 46.6 % 47-70 [facility] Work Phone: Potassium [Moles/Vol] 3.8 mmol/L 3.5-5.1 [facility]: [phone] Sodium [Moles/Vol] 142 mmol/L 136-145 [facility] Work Phone: WBC (Bld) [#/Vol] 7.9 10*3/uL 4.4-11.0 [facility] Work Phone: [phone] Blood erythrocytes count (nu mber/volume)on 07-29-2022 RBC (Bld) [#/Vol] 4.35 10*6/uL 4.6-6.2 [facility] Work Phone: [phone] Blood hemoglobin measurement (mass/volume)on 07-29-2022 Hemoglobin (Bld) [Mass/Vol] 13.5 g/dL 13.0-16.5 [facility] Work Phone: Blood lymphocytes/100 leukoc yteson 07-29-2022 Lymphocytes/100 WBC (Bld) 39.7 % 19-41 [facility] Work Phone: Blood monocytes/100 leukocyt eson 07-29-2022 Monocytes/100 WBC (Bld) 8.3 % 0-10 [facility] Work Phone: Blood platelet mean volumeon 07-29-2022 Platelet mean volume (Bld) [Entitic vol] 10.3 fL 6.2-12.0 [facility] Work Phone: Determination of erythrocyte mean corpuscular volume (MCV)on 07-29-2022 MCV (RBC) [Entitic vol] 93.6 fL 80-94 [facility] Work Phone: Hematocrit Auto (Bld) [Volum e fraction]on 07-29-2022 Hematocrit (Bld) [Volume fraction] 40.7 % 40-54 [facility] Work Phone: Laboratory - Chemistry and C hemistry - challengeon 07-29-2022 CO2 [Moles/Vol] 27.0 mmol/L 21.0-32.0 [facility] Work Phone: Urea nitrogen/Creatinine [Mass ratio] 10.4 mg/mg 10-20 [facility] Work Phone: Laboratory - Hematology and Cell countson 07-29-2022 Erythrocyte distribution width (RBC) [Entitic vol] 46.1 fL 35.1-43.9 [facility] Work Phone: Erythrocyte distribution width (RBC) [Ratio] 13.4 % 11.6-14.6 [facility] Work Phone: Immature granulocytes/100 WBC (Bld) 0.300 % 0.0-0.9 [facility] Work Phone: Comment on above: IG% - Immature Granu locytes (promyelocytes, myelocytes and metamyelocytes) > 1% indicates that a LEFT SHIFT is Present. MCH (RBC) [Entitic mass] 31.0 pg 27.0-32.0 [facility] Work Phone: Nucleated RBC/100 WBC (Bld) [Ratio] 0 % 0-5 [facility] Work Phone: MCHC Auto (RBC) [Mass/Vol]on 07-29-2022 MCHC (RBC) [Mass/Vol] 33.2 g/dL 32-36 [facility] Work Phone: No Panel Informationon 07-29 Estimated Creatinine Clearance Calc 99.92 ml/min [facility] Work Phone: Estimated GFR (MDRD) Amer 119 mL/min >60 [facility] Work Phone: Comment on above: GFR Calc Estimated GFR (MDRD) Non-Af Amer 98 mL/min >60 [facility] Work Phone: Comment on above: Non- GFR Calc Platelets bldon 07-29-2022 Platelets (Bld) [#/Vol] 234 10*3/uL 150-450 [facility] Work Phone: Serum or plasma calcium lila urement (mass/volume)on 07-29-2022 Calcium [Mass/Vol] 8.3 mg/dL 8.5-10.1 [facility] Work Phone: Serum or plasma creatinine m easurement (mass/volume)on 07-29-2022 Creatinine [Mass/Vol] 0.87 mg/dL 0.70-1.30 [facility] Work Phone: Comment on above: The validity of the calculated GFR & GFRAA in patients over 70 years has not been determined. Clinical correlation is essential. Serum or plasma urea nitroge n measurement (mass/volume)on 07-29-2022 Urea nitrogen [Mass/Vol] 9 mg/dL -18 [facility] Work Phone: Thin prep Papanicolaou smear with manual screeningon 07-29-2022 Thin prep Papanicolaou smear with manual screening 3 5-15 [facility] Work Phone: Basophil percentageon 2021 Bilirubin [Mass/Vol] 0.50 mg/dL 0.20-1.00 [facility] Work Phone: Comment on above: For patients on eltr ombopag therapy, use of Dimension [place] TBIL is not recommended. Cholesterol [Mass/Vol] 131 mg/dL <200 [facility] Work Phone: Comment on above: <200 mg/dL Desirable 200-240 mg/dL Borderline >240 mg/dL High Risk Protein [Mass/Vol] 5.8 g/dL 6.4-8.2 [facility] Work Phone: Triglyceride [Mass/Vol] 94 mg/dL <199 [facility] Work Phone: Comment on above: The drugs N-Acetylcy steine and Metamizole may falsely depress this assay.Serum Triglycerides Reference Interval Normal <150 mg/dL Borderline high 150 - 199 mg/dL High 200 - 499 mg/dL Very High > or = 500 mg/dL Laboratory - Chemistry and C hemistry - challengeon 07-28-2022 ALP [Catalytic activity/Vol] 64 U/L 45-117 [facility] Work Phone: ALT [Catalytic activity/Vol] 71 U/L 16-61 [facility] Work Phone: Globulin (S) [Mass/Vol] 2.7 g/dL 2.2-4.2 [facility] Work Phone: Magnesium [Mass/Vol] 2.1 mg/dL 1.6-2.6 [facility] Work Phone: No Panel Informationon 07-28 Thyroid Stimulating Hormone (TSH) 1.96 uIU/mL 0.358-3.74 [facility] Work Phone: Troponin I High Sensitivity 40115 pg/mL 3.0-78.0 [facility] Work Phone: Comment on above: Please Note: [place] Units and Gender Specific Reference Ranges. For more information see Policy Stat Procedure [place] High Sensitivity Troponin (TNIH) and attachments. Serum or plasma albumin lila urement (mass/volume)on 07-28-2022 Albumin [Mass/Vol] 3.1 g/dL 3.2-5.0 [facility] Work Phone: Serum or plasma albumin/glob ulin mass ratioon 07-28-2022 Albumin/Globulin [Mass ratio] 1.1 {ratio} 0.9-2.4 [facility] Work Phone: Serum or plasma cholesterol in HDL measurement (mass/volume)on 07-28-2022 Cholesterol in HDL [Mass/Vol] 40 mg/dL >40 [facility] Work Phone: Comment on above: The drugs N-Acetylcy steine and Metamizole may falsely depress this assay. Reference Range HDL <40 mg/dL Low HDL Cholesterol HDL >or= 60 mg/dL High HDL Cholesterol Serum or plasma cholesterol in VLDL measurement (mass/volume)on 07-28-2022 Cholesterol in VLDL [Mass/Vol] 19 mg/dL 5-40 [facility] Work Phone: Serum or plasma low density lipoprotein (LDL) cholesterol measurement (mass/volume)on 07-28-2022 Cholesterol in LDL [Mass/Vol] 72 mg/dL 0-130 [facility] Work Phone: Thin prep Papanicolaou smear with manual screeningon 07-28-2022 Thin prep Papanicolaou smear with manual screening 287 U/L 15-37 [facility] Work Phone: Absolute lymphocyte counton 07-27-2022 Lymphocytes Auto (Unsp spec) [#/Vol] 4.14 10*3/uL 0.83-4.51 [facility] Work Phone: Basophil percentageon 2021 Basophils/100 WBC (Bld) 0.7 % 0-1 [facility] Work Phone: Chloride [Moles/Vol] 107 mmol/L 98-107 [facility] Work Phone: Eosinophils/100 WBC (Bld) 6.4 % 0-5 [facility] Work Phone: Glucose [Mass/Vol] 143 mg/dL 74-106 [facility] Work Phone: Comment on above: Fasting Glucose resu lt greater than or equal to 126 mg/dL suggests DIABETES MELLITUS per A.D.A. criteria. Neutrophils (Bld) [#/Vol] 4.4 10*3/uL 2.0-7.7 [facility] Work Phone: Neutrophils/100 WBC (Bld) 43.4 % 47-70 [facility] Work Phone: Potassium [Moles/Vol] 3.9 mmol/L 3.5-5.1 [facility] Work Phone: Sodium [Moles/Vol] 140 mmol/L 136-145 [facility] Work Phone: WBC (Bld) [#/Vol] 10.1 10*3/uL 4.4-11.0 [facility] Work Phone: Blood erythrocytes count (nu mber/volume)on 07-27-2022 RBC (Bld) [#/Vol] 5.41 10*6/uL 4.6-6.2 [facility] Work Phone: Blood hemoglobin measurement (mass/volume)on 07-27-2022 Hemoglobin (Bld) [Mass/Vol] 16.8 g/dL 13.0-16.5 [facility] Work Phone: Blood lymphocytes/100 leukoc yteson 07-27-2022 Lymphocytes/100 WBC (Bld) 41.0 % 19-41 [facility] Work Phone: Blood monocytes/100 leukocyt eson 07-27-2022 Monocytes/100 WBC (Bld) 8.2 % 0-10 [facility] Work Phone: Blood platelet mean volumeon 07-27-2022 Platelet mean volume (Bld) [Entitic vol] 10.0 fL 6.2-12.0 [facility] Work Phone: Determination of erythrocyte mean corpuscular volume (MCV)on 07-27-2022 MCV (RBC) [Entitic vol] 92.6 fL 80-94 [facility] Work Phone: Hematocrit Auto (Bld) [Volum e fraction]on 07-27-2022 Hematocrit (Bld) [Volume fraction] 50.1 % 40-54 [facility] Work Phone: Laboratory - Chemistry and C hemistry - challengeon 07-27-2022 CO2 [Moles/Vol] 28.0 mmol/L 21.0-32.0 [facility] Work Phone: Urea nitrogen/Creatinine [Mass ratio] 10.9 mg/mg 10-20 [facility] Work Phone: Laboratory - Hematology and Cell countson 07-27-2022 Erythrocyte distribution width (RBC) [Entitic vol] 45.3 fL 35.1-43.9 [facility] Work Phone: Erythrocyte distribution width (RBC) [Ratio] 13.3 % 11.6-14.6 [facility] Work Phone: Immature granulocytes/100 WBC (Bld) 0.300 % 0.0-0.9 [facility] Work Phone: Comment on above: IG% - Immature Granu locytes (promyelocytes, myelocytes and metamyelocytes) > 1% indicates that a LEFT SHIFT is Present. MCH (RBC) [Entitic mass] 31.1 pg 27.0-32.0 [facility] Work Phone: Nucleated RBC/100 WBC (Bld) [Ratio] 0 % 0-5 [facility] Work Phone: MCHC Auto (RBC) [Mass/Vol]on 07-27-2022 MCHC (RBC) [Mass/Vol] 33.5 g/dL 32-36 [facility] Work Phone: No Panel Informationon 07-27 Activated Clotting Time 329 sec 74-137 [facility] Work Phone: Estimated Creatinine Clearance Calc 69.64 ml/min [facility] Work Phone: Estimated GFR (MDRD) Amer 82 mL/min >60 [facility] Work Phone: Comment on above: GFR Calc Estimated GFR (MDRD) Non-Af Amer 68 mL/min >60 [facility] Work Phone: Comment on above: Non- GFR Calc Troponin I High Sensitivity 7 pg/mL 3.0-78.0 [facility] Work Phone: Comment on above: Please Note: [place] t Units and Gender Specific Reference Ranges. For more information see Policy Stat Procedure [place] High Sensitivity Troponin (TNIH) and attachments. Platelets bldon 07-27-2022 Platelets (Bld) [#/Vol] 335 10*3/uL 150-450 [facility] Work Phone: Serum or plasma C reactive p rotein measurement (mass/volume)on 07-27-2022 CRP [Mass/Vol] mg/L 0.0-3.0 [facility] Work Phone: Comment on above: C-Reactive Protein ( CRP) provides useful information for thediagnosis, therapy and monitoring of inflammatory processesand associated diseases. For the evaluation of Relative Riskfor Cardiovascular Disease, a High Sensitivity CRP (HSCRP)should be ordered. Serum or plasma calcium lila urement (mass/volume)on 07-27-2022 Calcium [Mass/Vol] 9.7 mg/dL 8.5-10.1 [facility] Work Phone: Serum or plasma creatinine m easurement (mass/volume)on 07-27-2022 Creatinine [Mass/Vol] 1.19 mg/dL 0.70-1.30 [facility] Work Phone: Comment on above: The validity of the calculated GFR & GFRAA in patients over 70 years has not been determined. Clinical correlation is essential. Serum or plasma urea nitroge n measurement (mass/volume)on 07-27-2022 Urea nitrogen [Mass/Vol] 13 mg/dL 03-28 [facility] Work Phone: Thin prep Papanicolaou smear with manual screeningon 07-27-2022 Thin prep Papanicolaou smear with manual screening 5 5-15 [facility] Work Phone: Whole blood hemoglobin A1c/t otal hemoglobin ratio (mass fraction)on 07-27-2022 HbA1c (Bld) [Mass fraction] 5.3 % 3.8-5.6 [facility] Work Phone: Comment on above: Normal < 5.7 % Predi abetic 5.7 - 6.4 % Diabetic >or= 6.5 % Please note range changes. Vital Signs Date Time Vital Sign Value Performing Clinician Faci lity 06-20-2023 15:07-0400 Body height 177.8 cm Out [facility] 06-20-2023 15:07-0400 Body mass index (BMI) [Ratio] 22.2 kg/m2 Out [facility] 06-20-2023 15:07-0400 Body weight 70.3 kg Out [facility] 06-20-2023 15:07-0400 Diastolic blood pressure 67 mm[Hg] Out [facility] 06-20-2023 15:07-0400 Heart rate 76 /min Out [facility] 06-20-2023 15:07-0400 Respiratory rate 14 /min Out [facility] 06-20-2023 15:07-0400 Systolic blood pressure 106 mm[Hg] Out [facility] 07-29-2022 11:06-0500 Heart rate 58 /min Dr. Yo Nova Work Phone: [facility] Work Phone: 07-29-2022 10:46-0500 Diastolic blood pressure 65 mm[Hg] Dr. Yo Nova Work Phone: [facility] Work Phone: 07-29-2022 10:46-0500 Respiratory rate 16 /min Dr. Yo Nova Work Phone: [facility] Work Phone: 07-29-2022 10:46-0500 SaO2% (BldA) [Mass fraction] 98 % Dr. Yo Nova Work Phone: [facility] Work Phone: 07-29-2022 10:46-0500 Systolic blood pressure 99 mm[Hg] Dr. Yo Nova Work Phone: [facility] Work Phone: 07-29-2022 08:01-0500 Body temperature 98.4 [degF] Dr. Yo Nova Work Phone: [facility] Work Phone: 07-29-2022 05:57-0500 Body weight 71.[address] Yo Nova Work Phone: [facility] Work Phone: 07-27-2022 12:30-0500 Inhaled oxygen flow rate 2 L/min Dr. Yo Nova Work Phone: [facility] Work Phone: 07-27-2022 09:37-0500 Body height 177.8 cm [facility] Work Phone: 07-27-2022 09:37-0500 Body mass index (BMI) [Ratio] 21.4 kg/m2 [facility] Work Phone: 07-27-2022 09:12-0500 Body temperature 97.2 [degF] [facility] Work Phone: 07-27-2022 09:12-0500 Diastolic blood pressure 77 mm[Hg] [facility] Work Phone: 07-27-2022 09:12-0500 Heart rate 47 /min [facility] Work Phone: 07-27-2022 09:12-0500 Respiratory rate 15 /min [facility] Work Phone: 07-27-2022 09:12-0500 SaO2% (BldA) [Mass fraction] 100 % [facility] Work Phone: 07-27-2022 09:12-0500 Systolic blood pressure 94 mm[Hg] [facility] Work Phone: 07-27-2022 08:00-0500 Body weight 67.8 kg [facility] Work Phone: Encounters Encounter Date Encounter Type Care Provider Facility Start: 10-24-2024 End: 10-24-2024 Emergency department patient visit Remus Ungur Facility:[facility] Start: 07-11-2024 End: 07-11-2024 ambulatory [facility] Facility:[facility] Start: 06-20-2024 End: 06-20-2024 ambulatory [facility] Facility:[facility] Start: 06-20-2023 End: 06-20-2023 ambulatory [facility] Work Phone: Start: 06-20-2023 End: 06-20-2023 Patient encounter procedure [place] Doctor [facility] Work Phone: Start: 07-29-2022 Non-patient / Non-visit Dr. Love Work Phone: [facility] Start: 07-29-2022 Non-patient / Non-visit Dr. Love Work Phone: [facility] Start: 07-28-2022 Non-patient / Non-visit Dr. Love Work Phone: [facility] Start: 07-27-2022 Non-patient / Non-visit Dr. Love Work Phone: [facility] Start: 07-27-2022 Non-patient / Non-visit Dr. Love Work Phone: [facility] Start: 07-27-2022 End: 07-29-2022 Evaluation and management of inpatient [facility] Procedures Date Procedure Procedure Detail Performing Clinician Start: 07-27-2022 History of placement of stent for coronary artery disease History of coronary artery stent placement Dr. Yo Nova Work Phone: Start: 07-27-2022 Plain chest X-ray Plan of Treatment Date Care Activity Detail Author Start: 07-29-2022 Patient referral [facility] Work Phone: Start: 07-29-2022 Patient discharge [facility] Work Phone: Start: 07-28-2022 Care planning and pr oblem solving actions [facility] Work Phone: Start: 07-27-2022 Ambulation without limitation [facility] Work Phone: Start: 07-27-2022 Provision of activity privileges [facility] Work Phone: Start: 07-27-2022 Cardiac monitoring [facility] Work Phone: Start: 07-27-2022 Cardiac rehabilitation - phase 1 [facility] Work Phone: Start: 07-27-2022 Cardiac rehabilitation - phase 2 [facility] Work Phone: Start: 07-27-2022 Notification of physician [facility] Work Phone: Start: 07-27-2022 Systemic arterial pr essure monitoring [facility] Work Phone: Start: 07-27-2022 Taking patient vital signs [facility] Work Phone: Start: 07-27-2022 Vascular disease risk assessment [facility] Work Phone: Start: 07-27-2022 Vital signs measurements [facility] Work Phone: Start: 07-27-2022 Catheterization of vein [facility] Work Phone: Start: 07-27-2022 Medication not administered [facility] Work Phone: Start: 07-27-2022 Care planning and pr oblem solving actions [facility] Work Phone: Start: 07-27-2022 Following clinical p athway protocol [facility] Work Phone: Start: 07-27-2022 Assessment of risk o f venous thromboembolism [facility] Work Phone: Start: 07-27-2022 Insertion of cathete r into peripheral vein [facility] Work Phone: Start: 07-27-2022 Measuring intake and output [facility] Work Phone: Start: 07-27-2022 Oxygen therapy [facility] Work Phone: Start: 07-27-2022 Providing care accor ding to standard [facility] Work Phone: Start: 07-27-2022 Referral to service [facility] Work Phone: Start: 07-27-2022 Tobacco use cessation education [facility] Work Phone: Start: 07-27-2022 Verification routine [facility] Work Phone: Start: 07-27-2022 Admission procedure [facility] Work Phone: Start: 07-27-2022 Blood chemistry [facility] Work Phone: Start: 07-27-2022 End: 07-27-2022 [facility] Work Phone: Hemoglobin A1c/Hemog lobin.total in Blood [facility] Work Phone: Patient referral [facility] Work Phone: Immunizations Immunization Date Immunization Notes Care Provider [facility] 08[facility] Covid (Pfizer) Dr. Yo Torres nnedy Work Phone: [facility] Payers Date Payer Category Payer Self-pay 2024 Unknown [id number] Private Health Insurance [employer] [id number] Unknown [employer] [id number] Unknown [id number] Unknown [id number] Social History Date Type Detail Facility Start: 07-27-2022 End: 06-20-2023 Tobacco smoking status NHIS Unknown if ever smoked [facility] Start: 1970 Sex Assigned At Male W [facility] Medical Equipment Procedure Code Equipment Code Equipment Origin al Text Equipment Identifier Dates Drug-eluting coronary artery stent, [id number] lymer-coated ([id number] Start: 07-27-2022 Goals Date Patient Goal Desired Activity /State Functional Status Date Assessment Result Facility 07-29-2022 Functional status Ambulates;Up ad jose;Corrie ir [facility] Work Phone: Mental Status Date Assessment Result Facility 07-28-2022 Cognitive function Voice/Name [facility] Work Phone: 07-27-2022 Cognitive function Level Of Cons ciousness Awake;Alert;Appropriate;Follow s Commands [facility] Work Phone: Evaluation note 07-27-2022 Note Date & Type Note Facility 07-27-2022 Evaluation note Diagnosis Onset Date Cardiomyopathy, ischemic acu te History of coronary artery stent placement July 27, 2022 acute [facility] Work Phone: Evaluation note Note Date & Type Note Facility Evaluation note No assessment information availa ble [facility] Work Phone: Evaluation note Note Date & Type Note Facility Evaluation note Diagnosis Onset Date Bradycardia acute Chest pain acute Erythrocytosis acute Hyperglycemia acute NSTEMI (non-ST elevated myoc ardial infarction) acute [facility] Work Phone: Chief Complaint and Reason for Visit Chief Complaint UNSTABLE ANGINA Chief Complaint UNSTABLE ANGINA UNSTABLE ANGINA UNSTABLE ANGINA UNSTABLE ANGINA UNSTABLE ANGINA UNSTABLE ANGINA Reason for Visit Bradycardia Chest pain Erythrocytosis Hyperglycemia NSTEMI (non-ST elevated myocardial infarction) Chief Complaint 9 M FU Reason for Visit Cardiomyopathy, isch emic History of coronary artery stent placement Advance Directives No Advanced Directives Records Found Advance Directive Response Recorded Date/ Time Living Will No July 27 8:05am Power of Television Program Director No July 27, 2022 8:05am Advance Directive Response Recorded Date/ Time Living Will No July 27 9:38am Power of Television Program Director No July 27, 2022 9:38am Advance Directive Response Recorded Date/ Time Living Will No July 27 10:38am Power of Television Program Director No July 27, 2022 10:38am Family History No Family History Records Found Relationship Condition Age at Onset Recorded Date/T jennifer mother Lymphoma Unknown Leukemia Unknown father Malignant neoplasm of esophagus Unknown Coronary artery disease Unknown Summary Purpose Additional Source Comments Goals (unrecognized section and content) Goals may be documented in a n alternate sectionGoals may be documented in an alternate section Care Teams (unrecognized sec tion and content) Team Status: Active Member Role Status Dates Dr. Irvin Loo DO Family Provider Active Out of [facility] Doctor Primary Care Provider Active Team Status: Inactive Member Role Status Dates Out [facility] Doctor Primary Care Provider, Referring Pr mo Active Dr. Jesus Flannery MD Attending Provider Active Team Status: Inactive Member Role Status Dates Out [facility] Doctor Primary Care Provider Active Dr. Jesus Flannery MD Attending Provider, Referring Pro vider Active (unrecognized sect ion and content) No Status Records Found INFORMATION SOURCE (unrecogn ized section and content) DATE CREATED AUTHOR 11/09/2024 [facility] FOR RECORDS PERTAINING TO PATIENTS WHO ARE OR HAVE BEEN ENROLLED IN A CHEMICAL DEPENDENCY/SUBSTANCEABUSE PROGRAM, SOME INFORMATION MAY BE OMITTED. This clinical summary was aggregated from multiple sources. Caution should be exercised in using it in the provision of clinical care. This summary normalizes information from multiple sources, and as a consequence, information in this document may materially change the coding, format and clinical context of patient data. In addition, data may be omitted in some cases. CLINICAL DECISIONS SHOULD BE BASED ON THE PRIMARY CLINICAL RECORDS. [employer] [facility] provides no warranty or guarantee of the accuracy or completeness of information in this document.
[2025-05-14 09:01] LABS: Hematocrit 46.7 % (40-54); Hemoglobin 16.2 g/dL (13.0-16.5); Immature Granulocytes Count 0.040 X10^3/uL (0.0-0.0); Mean Corp Hgb Conc 34.7 g/dL (32-36); Mean Corpuscular Volume 91.2 fL (80-94); Mean Platelet Vol. 9.7 fl (6.2-12.0); NRBC Flagged by Analyzer 0 % (0-5); Platelet Count 354 K/mm3 (150-450); RBC Distribution Width CV 13.0 % (11.6-14.6); RBC Distribution Width SD 43.8 fl (35.1-43.9); Red Blood Count 5.12 M/mm3 (4.6-6.2); White Blood Count 7.0 K/mm3 (4.4-11.0)
[2025-05-14 09:45] LABS: Anion Gap 11 (5-15); BUN 11 mg/dL (4-19); BUN/Creat Ratio 11.6 RATIO (10-20); Calcium,Total 9.8 mg/dL (7.6-11.0); Carbon Dioxide 25.3 mmol/L (21.0-32.0); Chloride 103 mmol/L (98-108); Glucose 94 mg/dL (70-99); Potassium 4.6 mmol/L (3.3-5.1); Pro- Brain NATRIURETIC PEPTIDE 93 pg/mL (<=900)
== END | disposition home or self-care (01) ==
LOC: LAB 07:46
PROVIDERS: Referring Provider Nurse Practitioner Family; Visit Provider Nurse Practitioner Family
DX: R23.2 Flushing (principal); R61 Generalized hyperhidrosis; R06.02 Shortness of breath; I25.10 Atherosclerotic heart disease of native coronary artery without angina pectoris; I25.5 Ischemic cardiomyopathy; I25.2 Old myocardial infarction; Z95.5 Presence of coronary angioplasty implant and graft
CPT/HCPCS: 36415; 80048; 83036; 83880; 85025

== ENCOUNTER → 2025-07-01 | Outpatient (CLI) | payer OTHER, SELFPAY ==
--- OUTSIDE RECORDS SUMMARY | 2025-07-01 08:16 | XMS RPT_ITS | CCD ---
Author Organization [facility] Care Team Providers Care Rn Wound Care Name Role Phone Dr. Yo Nova Emergency Provider [phone] URBAN MARTINES Primary Care Provider Dr. Roberta Ochoa Admit Provider Dr. Roberta Ochoa Attending Provider [phone] Roberta Ochoa Other Provider Dr. Jesus Flannery Attending Provider Dr. Priya Lowe Attending Provider [phone] [facility] Doctor, Out of Primary Care Provider [facility] Doctor, Out of Referring Provider Unavailab Dr. Jesus Dumont Attending Provider URBAN MARTINES Primary Care Provider Mercedes CERAMIST-CJavier Attending Provider Mercedes CERAMIST-C, Javier Hunter Referring Provider [facility] Doctor, Out of Primary Care Provider [facility] Doctor, Out of Referring Provider Unavailab GARCIA Casarez Primary Care Unavailable GARCIA ADAIR Attending Unavailable GARCIA ADAIR Referring Unavailable Roof CERAMISTJavier Attending Unavailable Roof CERAMISTJavier Referring Unavailable GARCIA ADAIR Primary Care Unavailable Ungur, Remus Attending Unavailable Ungur, Remus Referring Unavailable [facility] Doctor, Out of Primary Care Unavailable GARCIA ADAIR Primary Care Unavailable GARCIA ADAIR Referring Unavailable Gabriela Mcgregor Attending Unavail able Roof CERAMISTJavier Attending Unavailable [facility] Doctor, Out of Primary Care Unavailable [facility] Doctor, Out of Referring Unavailable Medications Current Medications Medication Drug Class(es) Dates Sig (Normalized) Sig (Original) aspirin 81 mg delayed release oral tablet (4 sources) Platelet Aggregation Inhibitor, Nonsteroidal Anti-inflammatory Drug Start: 07-29-2022 take 1 tablet by mouth at breakfast Aspirin 81 mg Tablet,Delayed Release (Dr/Ec) Active 81 mg PO WITH BREAKFAST 0 0 July 29, 2022 1:00am fluticasone propionate 0.05 mg/actuat metered dose nasal spray (8 sources) Corticosteroid Start: 07-27-2022 End: 10-17-2022 Fluticasone Propionate (Flonase Allergy Relief) 50 mcg/actuation spray,suspension Active 2 NMA INTRANASAL AT BEDTIME as needed for allergies October 17, 2022 2:15pm Start: 07-27-2022 End: 10-17-2022 Fluticasone Propionate (Flon ase Allergy Relief) 50 mcg/actuation spray,suspension Active 2 SPRAY INTRANASAL AT BEDTIME October 17, 2022 2:15pm rosuvastatin calcium 5 mg oral tablet (19 sources) HMG-CoA Reductase Inhibitor Start: 05-15-2025 take 1 tablet by mouth every other day Rosuvastatin (Crestor) 5 mg tablet Active 5 mg PO every other day May 15, 2025 10:15am Start: 11-01-2022 End: 05-15-2025 take 1 tablet by mouth once daily Rosuvastatin (Crestor) 5 mg tablet Discontinued 5 mg PO DAILY 90 July 11, 2024 4:11pm May 15, 2025 10:16am ubidecarenone 100 mg oral capsule (2 sources) Start: 05-15-2025 take 10 capsules by mouth once daily Coenzyme Q10 100 mg capsule Active 100 mg PO daily May 15, 2025 12:00am Completed/Discontinued Medications Medication Drug Class(es) Dates Sig (Normalized) Sig (Original) atorvastatin 80 mg oral tablet (7 sources) HMG-CoA Reductase Inhibitor Start: 07-29-2022 End: 02-03-2023 take 1 tablet by mouth at bedtime Atorvastatin 80 mg tablet Discontinued 80 mg PO AT BEDTIME 90 August 29, 2022 11:08am February 03, 2023 8:55am On Hold: muscle aches clopidogrel 75 mg oral tablet (15 sources) [id number] Platelet Inhibitor Start: 06-23-2023 End: 07-11-2024 take 1 tablet by mouth once daily Clopidogrel 75 mg tablet Discontinued 75 mg PO DAILY 30 July 17, 2023 5:03pm July 11, 2024 3:24pm Stop end of July 2023 Start: 07-29-2022 End: 06-20-2023 take 1 tablet by mouth once daily Clopidogrel 75 mg tablet Discontinued 75 mg PO DAILY 90 February 03, 2023 9:12am June 20, 2023 3:34pm ibuprofen 200 mg oral tablet (5 sources) Nonsteroidal Anti-inflammatory Drug Start: 07-27-2022 End: 06-20-2023 take 1 tablet by mouth every six hours as needed for pain Ibuprofen (Advil) 200 mg Tablet Discontinued 200 mg PO EVERY 6 HOURS as needed for Pain July 27, 2022 1:00am June 20, 2023 3:11pm On Hold: would avoid if able and if needed use sparingly lisinopril 2.5 mg oral tablet (17 sources) Angiotensin Converting Enzyme Inhibitor Start: 02-09-2023 End: 07-11-2024 take 1 tablet by mouth once daily Lisinopril 2.5 mg tablet Discontinued 2.5 mg PO DAILY 90 June 20, 2023 3:34pm July 11, 2024 4:11pm Start: 10-17-2022 End: 02-03-2023 take 1 tablet by mouth once daily Lisinopril 2.5 mg tablet Discontinued 2.5 mg PO DAILY November 08, 2022 2:22pm February 03, 2023 9:11am 24 hr metoprolol succinate 25 mg extended release oral tablet (11 sources) beta-Adrenergic Mario Start: 08-29-2022 End: 07-11-2024 take 2 tablets by mouth once daily Metoprolol Succinate 25 mg tablet extended release 24 hr Discontinued 12.5 mg PO DAILY June 20, 2023 3:34pm July 11, 2024 4:11pm Start: 08-29-2022 End: 06-20-2023 take 12.5 mg by mouth once daily Metoprolol Succinate Discontinued 12.5 MG PO DAILY June 20, 2023 3:31pm June 20, 2023 3:35pm oseltamivir 75 mg oral capsule (2 sources) Neuraminidase Inhibitor Start: 10-24-2024 End: 05-13-2025 take 1 capsule by mouth twice daily Oseltamivir (Tamiflu) 75 mg capsule Discontinued 75 mg PO TWICE A DAY 10 5 0 October 24, 2024 1:00am May 13, 2025 4:54pm sacubitril 24 mg / valsartan 26 mg oral tablet (3 sources) Angiotensin 2 Receptor Mario Start: 02-03-2023 End: 02-09-2023 Sacubitril-Valsart an (Entresto) 24-26 mg tablet Discontinued 1 {tbl} PO TWICE A DAY 180 3 February 03, 2023 12:00am February 09, 2023 2:00pm Problems Problem Classification Problem Date Documented Da te Episodic/Chronic Acute myocardial infarction (5 sources) Myocardial infarction; Translations: [Non-ST elevation (NSTEMI) myocardial infarction] Chronic Cardiac dysrhythmias (5 sources) Bradycardia; Translations: [Bradycardia, unspecified] Episodic Coronary atherosclerosis and other heart disease (20 sources) Coronary arteriosclerosis; Translations: [Atherosclerotic heart disease of [place] coronary artery without angina pectoris] Onset: 07-11-2024 08-06-2022 Chronic Comment on above: EF 45-50% Coronary atherosclerosis and other heart disease (2 sources) Presence of coronary angioplasty implant and graft; Translations: [Percutaneous transluminal coronary angioplasty status] Onset: 07-27-2022 06-20-2023 Episodic Diabetes mellitus without complication (5 sources) Hyperglycemia; Translations: [Hyperglycemia, unspecified] Episodic Influenza (2 sources) Influenza due to Influenza A virus; Translations: [Influenza due to other identified influenza virus with other respiratory manifestations] 11-01-2024 Episodic Nonspecific chest pain (5 sources) Chest pain; Translations: [Chest pain, unspecified] Episodic Other hematologic conditions (4 sources) Erythrocytosis; Translations: [Secondary polycythemia] 08-06-2022 Episodic Other hematologic conditions (1 source) Secondary polycythemia; Translations: [Polycythemia, secondary] Episodic Other lower respiratory disease (2 sources) Dyspnea; Translations: [Shortness of breath] 05-13-2025 Episodic Other lower respiratory disease (1 source) Shortness of breath; Translations: [Shortness of breath] Onset: 05-15-2025 Episodic Other skin disorders (1 source) Generalized hyperhidrosis; Translations: [Generalized hyperhidrosis] Onset: 05-15-2025 Episodic Residual codes; unclassified (3 sources) Tobacco user; Translations: [Tobacco use] 08-29-2022 Episodic Residual codes; unclassified (2 sources) Abnormal flushing and sweating; Translations: [Flushing] 05-13-2025 Episodic Residual codes; unclassified (1 source) Flushing; Translations: [Flushing] Onset: 05-22-2025 Episodic Spondylosis; intervertebral disc disorders; other back problems (2 sources) Backache; Translations: [Dorsalgia, unspecified] 11-01-2024 Episodic Unclassified (1 source) Cough, unspecified; Translations: [Cough, unspecified] Onset: 11-07-2024 Results Test Name Value Interpretation Reference Range Facility Cardiology Visit Reporton Cardiology Visit Report [facility] [address] [place] [address] OFFICE VISIT Date of Service: 05/15/25 MR#: [id number] Acct: [id number] Name: ANTHONY DEUTSCH Rep #: [id number] : 1970 Provider: BRYANT peralta Age/Sex: 55/M Location: [facility] Status: Signed HPI HPI History of Present Illness Details: Anthony Deutsch is a 55 year old gentleman that presented to [facility] emergency room on 07/27/2022 with chest pain that was associated with profound weakness. His initial EKG demonstrated sinus rhythm with less than 1 mm of elevation in the inferior leads and sinus bradycardia. His initial troponin was 7. Because of his concerning chest discomfort he was urgently taken to the [facility]. Heart catheterization demonstrated moderate disease of the [...] HERBERT inhibitor. Repeat Echocardiogram 01/31 demonstrated 47%. Twelve-lead ECG on 05/15/2025 showed sinus rhythm with occasional PVC at a rate of 61 bpm, P interval 146, QRS 92, and QTc 404. Compared to ECG dated 08/29/2022 it appears similar. He had laboratory test on 05/14/2025 that showed stable hemoglobin at 16.2. Chemistry evaluation showed sodium: 139, potassium: 4.6, BUN: 11, creatinine: 0.97, GFR: 93, and proBNP negative at 93. He contacted our office recently on concerns for occasional shortness of breath, fatigue, and lightheadedness. His shortness of breath occurs with activity over the last few months. This improves with rest. He also acknowledged feeling cold, clammy, and sweaty. This has been intermittent for a year. This is unchanged and can occur at rest. He denies chest, arm, jaw, or neck discomfort. He denies palpitations or bilateral lower extremity edema. He denies shortness of breath at rest, orthopnea, cough, or PND. He denies dizziness, near-syncope, syncope, or weakness. Intake Vital Signs 10/24/24 11:34 05/15/25 10:05 Height 5 ft 10 in 5 ft 10 in Weight: 156 lb BMI 22.4 BP 109/71 Blood Pressure Location Lt brachial Position Sitting Respiration 16 Pulse 64 Pulse Source NIBP Intake Visit Reasons: SOB, sweats, see Clinical Note Accounting Manager Required: No Allergies No Known Allergies Allergy (Verified 05/15/25 10:14) Medications ???Medication ???Instructions ???Recorded ???Confirmed ???Type aspirin 81 mg tablet,delayed 81 mg PO BREAKFAST #0 tabs 2 05/15/25 Rx release fluticasone propionate 50 2 spray intranasal QHS PRN 3 05/15/25 History mcg/actuation nasal allergies spray,suspension (Flonase Allergy Relief) lisinopril 2.5 mg tablet 2.5 mg PO DAILY #90 tabs 07/11/24 05/15/25 Rx metoprolol succinate 25 mg 12.5 mg (1/2 x 25 mg) PO DAILY #90 07/11/24 05/15/25 Rx tablet,extended release 24 hr tabs coenzyme Q10 100 mg capsule 100 mg PO QDAY 05/15/25 05/15/25 H istory rosuvastatin 5 mg tablet (Crestor) 5 mg PO Q OTHER DAY 05/15/2501/03 History Ejection fraction %: 47 Have you fallen in the past year?: No PFSH Medical History Cardiomyopathy, ischemic Atherosclerosis of coronary artery of [place] heart without angina pectoris NSTEMI (non-ST elevated [...] you participate in: none ROS Const Const: Positive for fatigue (Last week) and other (cold, clammy, and sweating); Negative for weakness Eyes Eyes: Negative for change in vision ENT ENT: Negative for dizziness or balance problems Cardio Chest Pain: No Palpitations: No (more content not included)... Normal [facility] Absolute lymphocyte countOrd ered By: Javier Long on 05-14-2025 Lymphocytes Auto (Unsp spec) [#/Vol] 2.59 10*3/uL 0.83-4.[address] [facility] Absolute neutrophil countOrd ered By: Javier Long on 05-14-2025 Neutrophils (Bld) [#/Vol] 3.3 10*3/uL 2.0-7.[address] [facility] Anion gap in Serum or Plasma Ordered By: Javier Long on 05-14-2025 Anion gap [Moles/Vol] 11 mmol/L 5-15 [facility] Automated blood erythrocyte countOrdered By: Javier Long on 05-14-2025 RBC (Bld) [#/Vol] 5.12 10*6/uL Normal 4.6-6.2 [facility] Comment on above: Performed By: #### L [id number], L100.0100, L503.7505, L500.2500 #### [facility] [address] [place], [address] Automated blood hematocrit ( percentage)Ordered By: Javier Long on 05-14-2025 Hematocrit (Bld) [Volume fraction] 46.7 % Normal 40-[address] [facility] Comment on above: Performed By: #### L [id number], L100.0100, L503.7505, L500.2500 #### [facility] [address] [place], [address] Automated lymphocyte count a s percentage of total leukocytesOrdered By: Javier Long on 05-14-2025 Lymphocytes/100 WBC Auto (Unsp spec) 37.2 % - [facility] BUN/creatinine ratioOrdered By: Javier Long on 05-14-2025 Urea nitrogen/Creatinine [Mass ratio] 11.6 mg/mg - [facility] Basic Metabolic Profile (BMP )on 05-14-2025 BUN/CRE 11.6 RATIO Normal - [facility] Comment on above: Order Comment: send results to Dr. Urban Gallego Performed By: #### L [id number], L100.0100, L503.7505, L500.2500 #### [facility] [address] [place], [address] GAP 11 Normal 5-[address] [facility] Comment on above: Order Comment: send results to Dr. Urban Gallego Performed By: #### L [id number], L100.0100, L503.7505, L500.2500 #### [facility] [address] [place], [address] Potassium [Moles/Vol] 4.6 mmol/L Normal 3.3-5.1 [facility] Comment on above: Order Comment: send results to Dr. Urban Gallego Performed By: #### L [id number], L100.0100, L503.7505, L500.2500 #### [facility] [address] [place], [address] Basophil percentageOrdered B y: Javier Long on 05-14-2025 Basophils/100 WBC (Bld) 0.7 % Normal 0-1 [facility] Comment on above: Performed By: #### L 501.9985, L100.0100, L503.7505, L500.2500 #### [facility] [address] [place], [address] CBC W/Diff, Automatedon Absolute Lymph 2.59 X10 3/uL Normal 0.83-4.[address] [facility] Comment on above: Performed By: #### L [id number], L100.0100, L503.7505, L500.2500 #### [facility] [address] [place], [address] Absolute Neut 3.3 X10 3/uL Normal 2.0-7.[address] [facility] Comment on above: Performed By: #### L [id number], L100.0100, L503.7505, L500.2500 #### [facility] [address] [place], [address] IG% 0.600 Normal 0.0-0.[address] [facility] Comment on above: Result Comment: IG% - Immature Granulocytes (promyelocytes, myelocytes and metamyelocytes) > 1% indicates that a LEFT SHIFT is Present. Performed By: #### L [id number], L100.0100, L503.7505, L500.2500 #### [facility] [address] [place], [address] Lymphocytes/100 WBC (Bld) 37.2 % Normal 19-[address] [facility] Comment on above: Performed By: #### L [id number], L100.0100, L503.7505, L500.2500 #### [facility] [address] [place], [address] Nucleated RBC (Bld) [#/Vol] 0 10*3/uL Normal 0-[address] [facility] Comment on above: Performed By: #### L [id number], L100.0100, L503.7505, L500.2500 #### [facility] [address] [place], [address] RDW SD 43.8 fl Normal 35.1-43.[address] [facility] Comment on above: Performed By: #### L [id number], L100.0100, L503.7505, L500.2500 #### [facility] [address] [place], [address] Carbon dioxide, total [Moles /volume] in Central venous bloodOrdered By: Javier Long on 05-14-2025 CO2 [Moles/Vol] 25.3 mmol/L Normal 21.0-32.[address] [facility] Comment on above: Order Comment: send results to Dr. Urban Gallego Performed By: #### L 501.9985, L100.0100, L503.7505, L500.2500 #### [facility] [address] [place], [address] Chloride assayOrdered By: Saima Long on 05-14-2025 Chloride [Moles/Vol] 103 mmol/L Normal 98-108 [facility] Comment on above: Order Comment: send results to Dr. Urban Gallego Performed By: #### L 501.9985, L100.0100, L503.7505, L500.2500 #### [facility] [address] [place], [address] Eosinophil percentageOrdered By: Javier Long on 05-14-2025 Eosinophils/100 WBC (Bld) 4.3 % Normal 0-[address] [facility] Comment on above: Performed By: #### L 501.9985, L100.0100, L503.7505, L500.2500 #### [facility] [address] [place], [address] Erythrocyte distribution wid th ratioOrdered By: Javier Long on 05-14-2025 Erythrocyte distribution width (RBC) [Ratio] 13.0 % Normal 11.6-14.[address] [facility] Comment on above: Performed By: #### L 501.9985, L100.0100, L503.7505, L500.2500 #### [facility] [address] [place], [address] Erythrocyte distribution wid th standard deviationOrdered By: Javier Long on 05-14-2025 Erythrocyte distribution width (RBC) [Ratio] 43.8 fl 35.1-43.[address] [facility] Glomerular filtration rate ( GFR) estimation/1.73 sq m using serum, plasma, or whole bOrdered By: Javier Long on 05-14-2025 GFR/1.73 sq M.predicted among non-blacks MDRD (S/P/Bld) [Vol rate/Area] 93 mL/min/{1.73_m2} Normal >[address] [facility] Comment on above: mL/min/1.73m2 CKD-EP I Creatinine Equation (2020) Order Comment: send results to Dr. Urban Gallego Result Comment: mL/m in/1.73m2 CKD-EPI Creatinine Equation (2020) Performed By: #### L 501.9985, L100.0100, L503.7505, L500.2500 #### [facility] [address] [place], [address] Hemoglobin A1c percentageOrd ered By: Javier Long on 05-14-2025 HbA1c (Bld) [Mass fraction] 5.6 % Normal <=5.[address] [facility] Comment on above: Normal < 5.7 % Predi abetic 5.7 - 6.4 % Diabetic >or= 6.5 % Please note range changes. Order Comment: Comme nts: send results to Dr. Urban Gallego Result Comment: Norm al < 5.7 % Prediabetic 5.7 - 6.4 % Diabetic >or= 6.5 % Please note range changes. Performed By: #### L 501.9985, L100.0100, L503.7505, L500.2500 #### [facility] [address] [place], [address] Hemoglobin measurementOrdere d By: Javier Long on 05-14-2025 Hemoglobin (Bld) [Mass/Vol] 16.2 g/dL Normal 13.0-16.[address] [facility] Comment on above: Performed By: #### L 501.9985, L100.0100, L503.7505, L500.2500 #### [facility] [address] [place], [address] Immature granulocytes/100 WB C Auto (Bld)Ordered By: Javier Long on 05-14-2025 Immature granulocytes/100 WBC (Bld) 0.600 % 0.0-0.[address] [facility] Comment on above: IG% - Immature Granu locytes (promyelocytes, myelocytes and metamyelocytes) > 1% indicates that a LEFT SHIFT is Present. MCV (mean corpuscular volume ) determinationOrdered By: Javier Long on 05-14-2025 MCV (RBC) [Entitic vol] 91.2 fL Normal 80-94 [facility] Comment on above: Performed By: #### L 501.9985, L100.0100, L503.7505, L500.2500 #### [facility] [address] [place], [address] Mean corpuscular hemoglobin (MCH) determinationOrdered By: Javier Long on 05-14-2025 MCH (RBC) [Entitic mass] 31.6 pg Normal 27.0-32.[address] [facility] Comment on above: Performed By: #### L 501.9985, L100.0100, L503.7505, L500.2500 #### [facility] [address] [place], [address] Mean corpuscular hemoglobin concentration (MCHC) determinationOrdered By: Javier Long on 05-14-2025 MCHC (RBC) [Mass/Vol] 34.7 g/dL Normal 32-36 [facility] Comment on above: Performed By: #### L 501.9985, L100.0100, L503.7505, L500.2500 #### [facility] [address] [place], [address] Mean platelet volume determi nationOrdered By: Javier Long on 05-14-2025 Platelet mean volume (Bld) [Entitic vol] 9.7 fL Normal 6.2-12.[address] [facility] Comment on above: Performed By: #### L 501.9985, L100.0100, L503.7505, L500.2500 #### [facility] [address] [place], [address] Monocyte percentageOrdered B y: Javier Long on 05-14-2025 Monocytes/100 WBC (Bld) 9.2 % Normal 0-10 [facility] Comment on above: Performed By: #### L 501.9985, L100.0100, L503.7505, L500.2500 #### [facility] [address] [place], [address] Natriuretic peptide.B prohor frida N-Terminal [Mass/volume] in Serum or PlasmaOrdered By: Javier Long on 05-14-2025 Natriuretic peptide.B prohormone N-Terminal [Mass/Vol] 93 pg/mL <[address] [facility] Comment on above: Heart Failure Unlike ly: < 300 pg/mLHeart Failure Likely< 50 Years: > 450 pg/mL50-75 Years: > 900 pg/mL>75 Years: > 1800 pg/mL Neutrophil percentageOrdered By: Javier Long on 05-14-2025 Neutrophils/100 WBC (Bld) 48.0 % Normal 47-[address] [facility] Comment on above: Performed By: #### L 501.9985, L100.0100, L503.7505, L500.2500 #### [facility] [address] [place], [address] Nucleated red blood cell per centageOrdered By: Javier Long on 05-14-2025 Nucleated RBC/100 WBC (Bld) [Ratio] 0 % 0-[address] [facility] Platelet countOrdered By: Saima Long on 05-14-2025 Platelets (Bld) [#/Vol] 354 10*3/uL Normal 150-[address] [facility] Comment on above: Performed By: #### L 501.9985, L100.0100, L503.7505, L500.2500 #### [facility] [address] [place], [address] Potassium measurement (mass/ volume)Ordered By: Javier Long on 05-14-2025 Potassium (Unsp spec) [Mass/Vol] 4.6 mmol/L 3.3-5.[address] [facility] Pro- Brain NATRIURETIC PEPTI Maxx 05-14-2025 Natriuretic peptide B (Bld) [Mass/Vol] 93 pg/mL Normal <=[address] [facility] Comment on above: Result Comment: Hear t Failure Unlikely: < 300 pg/mL Heart Failure Likely < 50 Years: > 450 pg/mL 50-75 Years: > 900 pg/mL >75 Years: > 1800 pg/mL Performed By: #### L 501.9985, L100.0100, L503.7505, L500.2500 #### [facility] [address] [place], [address] Serum creatinine measurement (mass/volume)Ordered By: Javier Long on 05-14-2025 Creatinine [Mass/Vol] 0.97 mg/dL Normal 0.70-1.20 [facility] Comment on above: Order Comment: send results to Dr. Urban Gallego Performed By: #### L 501.9985, L100.0100, L503.7505, L500.2500 #### [facility] [address] [place], [address] Serum glucose measurement (m ass/volume)Ordered By: Javier Long on 05-14-2025 Glucose [Mass/Vol] 94 mg/dL Normal 70-99 [facility] Comment on above: Order Comment: send results to Dr. Urban Gallego Performed By: #### L 501.9985, L100.0100, L503.7505, L500.2500 #### [facility] [address] [place], [address] Serum or plasma calcium lila urement (mass/volume)Ordered By: Javier Long on 05-14-2025 Calcium [Mass/Vol] 9.8 mg/dL Normal 7.6-11.0 [facility] Comment on above: Order Comment: send results to Dr. Urban Gallego Performed By: #### L 501.9985, L100.0100, L503.7505, L500.2500 #### [facility] [address] [place], [place], [id number] [phone] Serum or plasma urea nitroge n measurement (mass/volume)Ordered By: Jvaier Long on 05-14-2025 Urea nitrogen [Mass/Vol] 11 mg/dL Normal 4-[address] [facility] Comment on above: Order Comment: send results to Dr. Urban Gallego Performed By: #### L [id number], L100.0100, L503.7505, L500.2500 #### [facility] [address] [place], [place], [id number] [phone] Sodium levelOrdered By: Javier Long on 05-14-2025 Sodium [Moles/Vol] 139 mmol/L Normal 133-145 [facility] Comment on above: Order Comment: send results to Dr. Urban Gallego Performed By: #### L 501.9985, L100.0100, L503.7505, L500.2500 #### [facility] [address] [place], [address] White blood cell (WBC) count Ordered By: Javier Long on 05-14-2025 WBC (Bld) [#/Vol] 7.0 10*3/uL Normal 4.4-11.0 [facility] Comment on above: Performed By: #### L 501.9985, L100.0100, L503.7505, L500.2500 #### [facility] [address] [place], [address] Chest 1 View (Portable)on Chest 1 View (Portable) [facility] Services [address] [place] [address] Chest 1 View (Portable) MR#: [id number] Acct: [id number] Name: ANTHONY DEUTSCH Rep #: [id number] : 1970 M 54 From: Garcia Barnes PCP: OUT OF TOWN DOCTOR Status: REG ER Study: Chest 1 View (Portable) Date of Exam: 10/24/24 Exam# [id number] Ordering Dr: Suma Rodriguez DO PROCEDURE: CHEST [...] acute osseous process is identified. Reading Location: [address] CC: Dr. Suma Rodriguez DO Food Operations Manager: Signed Normal [facility] Emergency Department Summary on 10-24-2024 Emergency Department Summary [facility] Medical Records Department [address] [place] [address] Emergency Department Summary 10/24/24 MR#: [id number] Acct: [id number] Name: ANTHONY DEUTSCH Rep #: [id number] : 1970 54 From: Suma Rodriguez DO PCP: OUT OF TOWN DOCTOR Status:DEP ER Location: ED HPI History of Present [...] back down to the left lateral thigh. [facility] Medical History Cardiomyopathy, ischemic Atherosclerosis of coronary artery of [place] heart without angina pectoris NSTEMI (non-ST elevated [...] Endocrinology: Denies polydipsia, polyphagia or polyuria Hematologic/Lymphatic Hematologic/Lymphatic : Denies easy bleeding, easy bruising or lymphadenopathy [...] clear Eyes (more content not included)... Normal [facility] M100.678on 10-24-2024 SARS-CoV-2 (COVID-19) Ab IA Ql Normal Reference Range = Negative FLUABV+SARS-CoV-2+RSV Pnl Resp ARCHANA+probe GeneXpert Instrument, PCR method FLUABV+SARS-CoV-2+RSV Pnl Resp ARCHANA+probe RESULTS CALLED TO Daniel MASSEY 10/24/24 1259 Lakisha Saeed. REPORT READ BACK BY . SARS-CoV-2 (COVID 19) Negative INFLUENZA A A Positive A INFLUENZA B Negative RSV PCR Negative INFLUENZAE A Normal [facility] Comment on above: Performed By: #### M 100.678 #### [facility] [address] [place], [place], [address] Cardiology Visit Reporton Cardiology Visit Report [facility] [address] [place], [place] [address] OFFICE VISIT Date of Service: 07/11/24 MR#: [id number] Acct: [id number] Name: ANTHONY DEUTSCH Rep #: [id number] : 1970 Provider: MIRIAN Braden Age/Sex: 54/M Location: [facility] Status: Signed HPI HPI History of Present Illness Details: Anthony Deutsch is a 53 year old gentleman that presented to [facility] emergency room on 07/27/2022 with chest pain that was associated with profound weakness. His initial EKG demonstrated sinus rhythm with less than 1 mm of elevation in the inferior leads and sinus bradycardia. His initial troponin was 7. Because of his concerning chest discomfort he was urgently taken to the Tube Test Technician. Heart catheterization demonstrated moderate disease of the [...] lipitor. He does not have any chest discomfort/heaviness/ tightness. 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 Normal [facility] PSA Total (Rflx Free)on 06-11 COMMENT Comment Normal . [facility] Comment on above: Result Comment: The percent free PSA is performed on a reflex basis only when the total PSA is between 4.0 and 10.0 ng/mL. Performed at: - [facility] [id number] Egyptologist: Estevan Chao PhD, Phone: [phone] Performed By: #### L 100.0100, L500.4050, L3110.0100, L3100.7870, L500.4100, L501.9520 ####[facility] [address] [place], [address] PSA, TOTAL 1.2 ng/mL Normal 0.0-4.[address] [facility] Comment on above: Result Comment: Bennie summers ECLIA methodology. According to the [place] [employer], Serum PSA should decrease and [...] of malignant disease. Performed By: #### L 100.0100, L500.4050, L3110.0100, L3100.7870, L500.4100, L501.9520 ####[facility] [address] [place], [place], [id number] CRP, High Sensitivity 120526 on 06-21-2024 CRP, HIGH SENS 0.75 mg/L Normal 0.00-3.[address] [facility] Comment on above: Result Comment: Rela tive Risk for Future Cardiovascular Event Low <1.00 Average 1.00 - 3.00 High >3.00 Performed at: [facility] [place] [id number] Egyptologist: Estevan Chao PhD, Phone: [phone] Performed By: #### L 100.0100, L500.4050, L3110.0100, L3100.7870, L500.4100, L501.9520 ####[facility] [address] [place], [place], [id number] CBC W/Diff, Automatedon 06-11 Absolute Lymph 2.60 X10 3/uL Normal 0.83-4.[address] [facility] Comment on above: Performed By: #### L 100.0100, L500.4050, L3110.0100, L3100.7870, L500.4100, L501.9520 #### [facility] [address] [place], [place], [phone] (462) Absolute Neut 5.0 X10 3/uL Normal 2.0-7.[address] [facility] Comment on above: Performed By: #### L 100.0100, L500.4050, L3110.0100, L3100.7870, L500.4100, L501.9520 #### [facility] [address] [place], [address] Basophils/100 WBC (Bld) 0.6 % Normal 0-1 [facility] Comment on above: Performed By: #### L 100.0100, L500.4050, L3110.0100, L3100.7870, L500.4100, L501.9520 #### [facility] [address] [place], [address] Eosinophils/100 WBC (Bld) 5.1 % High 0-[address] [facility] Comment on above: Performed By: #### L 100.0100, L500.4050, L3110.0100, L3100.7870, L500.4100, L501.9520 #### [facility] [address] [place], [address] Erythrocyte distribution width (RBC) [Ratio] 13.2 % Normal 11.6-14.[address] [facility] Comment on above: Performed By: #### L 100.0100, L500.4050, L3110.0100, L3100.7870, L500.4100, L501.9520 #### [facility] [address] [place], [address] Hematocrit (Bld) [Volume fraction] 49.3 % Normal 40-[address] [facility] Comment on above: Performed By: #### L 100.0100, L500.4050, L3110.0100, L3100.7870, L500.4100, L501.9520 #### [facility] [address] [place], [address] Hemoglobin (Bld) [Mass/Vol] 16.1 g/dL Normal 13.0-16.[address] [facility] Comment on above: Performed By: #### L 100.0100, L500.4050, L3110.0100, L3100.7870, L500.4100, L501.9520 #### [facility] [address] [place], [address] IG% 0.300 Normal 0.0-0.[address] [facility] Comment on above: Result Comment: IG% - Immature Granulocytes (promyelocytes, myelocytes and metamyelocytes) > 1% indicates that a LEFT SHIFT is Present. Performed By: #### L 100.0100, L500.4050, L3110.0100, L3100.7870, L500.4100, L501.9520 #### [facility] [address] [place], [address] Lymphocytes/100 WBC (Bld) 29.9 % Normal 19-[address] [facility] Comment on above: Performed By: #### L 100.0100, L500.4050, L3110.0100, L3100.7870, L500.4100, L501.9520 #### [facility] [address] [place], [address] MCH (RBC) [Entitic mass] 30.7 pg Normal 27.0-32.[address] [facility] Comment on above: Performed By: #### L 100.0100, L500.4050, L3110.0100, L3100.7870, L500.4100, L501.9520 #### [facility] [address] [place], [address] MCHC (RBC) [Mass/Vol] 32.7 g/dL Normal 32-36 [facility] Comment on above: Performed By: #### L 100.0100, L500.4050, L3110.0100, L3100.7870, L500.4100, L501.9520 #### [facility] [address] [place], [address] MCV (RBC) [Entitic vol] 93.9 fL Normal 80-94 [facility] Comment on above: Performed By: #### L 100.0100, L500.4050, L3110.0100, L3100.7870, L500.4100, L501.9520 #### [facility] [address] [place], [address] Monocytes/100 WBC (Bld) 7.1 % Normal 0-10 [facility] Comment on above: Performed By: #### L 100.0100, L500.4050, L3110.0100, L3100.7870, L500.4100, L501.9520 #### [facility] [address] [place], [address] Neutrophils/100 WBC (Bld) 57.0 % Normal 47-[address] [facility] Comment on above: Performed By: #### L 100.0100, L500.4050, L3110.0100, L3100.7870, L500.4100, L501.9520 #### [facility] [address] [place], [address] Nucleated RBC (Bld) [#/Vol] 0 10*3/uL Normal 0-[address] [facility] Comment on above: Performed By: #### L 100.0100, L500.4050, L3110.0100, L3100.7870, L500.4100, L501.9520 #### [facility] [address] [place], [address] Platelet mean volume (Bld) [Entitic vol] 9.9 fL Normal 6.2-12.[address] [facility] Comment on above: Performed By: #### L 100.0100, L500.4050, L3110.0100, L3100.7870, L500.4100, L501.9520 #### [facility] [address] [place], [address] Platelets (Bld) [#/Vol] 293 10*3/uL Normal 150-[address] [facility] Comment on above: Performed By: #### L 100.0100, L500.4050, L3110.0100, L3100.7870, L500.4100, L501.9520 #### [facility] [address] [place], [address] RBC (Bld) [#/Vol] 5.25 10*6/uL Normal 4.6-6.2 [facility] Comment on above: Performed By: #### L 100.0100, L500.4050, L3110.0100, L3100.7870, L500.4100, L501.9520 #### [facility] [address] [place], [address] RDW SD 46.0 fl High 35.1-43.[address] [facility] Comment on above: Performed By: #### L 100.0100, L500.4050, L3110.0100, L3100.7870, L500.4100, L501.9520 #### [facility] [address] [place], [address] WBC (Bld) [#/Vol] 8.7 10*3/uL Normal 4.4-11.0 [facility] Comment on above: Performed By: #### L 100.0100, L500.4050, L3110.0100, L3100.7870, L500.4100, L501.9520 #### [facility] [address] [place], [address] Comprehensive Metabolic Prof [facility] 06-20-2024 Albumin [Mass/Vol] 3.8 g/dL Normal 3.2-5.0 [facility] Comment on above: Order Comment: DR IRIS ONEILL TSH RFLX TO FT4 Performed By: #### L 100.0100, L500.4050, L3110.0100, L3100.7870, L500.4100, L501.9520 ####[facility] [address] [place], [address] Albumin/Globulin [Mass ratio] 1.2 {ratio} Normal 0.9-2.[address] [facility] Comment on above: Order Comment: DR OR NINO TSH RFLX TO FT4 Performed By: #### L 100.0100, L500.4050, L3110.0100, L3100.7870, L500.4100, L501.9520 ####[facility] [address] [place], [address] ALK P 79 U/L Normal 45-[address] [facility] Comment on above: Order Comment: DR IRIS ONEILL TSH RFLX TO FT4 Performed By: #### L 100.0100, L500.4050, L3110.0100, L3100.7870, L500.4100, L501.9520 ####[facility] [address] [place], [address] ALT [Catalytic activity/Vol] 24 U/L Normal 16-[address] [facility] Comment on above: Order Comment: DR OR NINO TSH RFLX TO FT4 Performed By: #### L 100.0100, L500.4050, L3110.0100, L3100.7870, L500.4100, L501.9520 ####[facility] [address] [place], [address] AST [Catalytic activity/Vol] 21 U/L Normal 15-[address] [facility] Comment on above: Order Comment: OR NINO TSH RFLX TO FT4 Performed By: #### L 100.0100, L500.4050, L3110.0100, L3100.7870, L500.4100, L501.9520 ####[facility] [address] [place], [address] Bilirubin [Mass/Vol] 0.70 mg/dL Normal 0.20-1.00 [facility] Comment on above: Order Comment: DR OR NINO TSH RFLX TO FT4 Result Comment: For patients on eltrombopag therapy, use of Dimension [place] TBIL is not recommended. Performed By: #### L 100.0100, L500.4050, L3110.0100, L3100.7870, L500.4100, L501.9520 ####[facility] [address] [place], [address] BUN/CRE 10.1 RATIO Normal 10-[address] [facility] Comment on above: Order Comment: DR OR NINO TSH RFLX TO FT4 Performed By: #### L 100.0100, L500.4050, L3110.0100, L3100.7870, L500.4100, L501.9520 ####[facility] [address] [place], [address] CA,Total 9.8 mg/dL Normal 8.5-10.[address] [facility] Comment on above: Order Comment: DR IRIS ONEILL TSH RFLX TO FT4 Performed By: #### L 100.0100, L500.4050, L3110.0100, L3100.7870, L500.4100, L501.9520 ####[facility] [address] [place], [address] Chloride [Moles/Vol] 105 mmol/L Normal 98-107 [facility] Comment on above: Order Comment: DR IRIS ONEILL TSH RFLX TO FT4 Performed By: #### L 100.0100, L500.4050, L3110.0100, L3100.7870, L500.4100, L501.9520 ####[facility] [address] [place], [address] CO2 [Moles/Vol] 28.0 mmol/L Normal 21.0-32.[address] [facility] Comment on above: Order Comment: DR IRIS ONEILL TSH RFLX TO FT4 Performed By: #### L 100.0100, L500.4050, L3110.0100, L3100.7870, L500.4100, L501.9520 ####[facility] [address] [place], [address] Creatinine [Mass/Vol] 1.09 mg/dL Normal 0.70-1.30 [facility] Comment on above: Order Comment: DR IRIS ONEILL TSH RFLX TO FT4 Result Comment: The validity of the calculated GFR GFRAA in patients over 70 years has not been determined. Clinical correlation is essential. Performed By: #### L 100.0100, L500.4050, L3110.0100, L3100.7870, L500.4100, L501.9520 ####[facility] [address] [place], [address] EST GFR - AA 91 mL/min Normal >[address] [facility] Comment on above: Order Comment: DR IRIS ONEILL TSH RFLX TO FT4 Result Comment: Afri can [place] GFR Calc Performed By: #### L 100.0100, L500.4050, L3110.0100, L3100.7870, L500.4100, L501.9520 ####[facility] [address] [place], [address] GAP 4 Low 5-[address] [facility] Comment on above: Order Comment: DR IRIS ONEILL TSH RFLX TO FT4 Performed By: #### L 100.0100, L500.4050, L3110.0100, L3100.7870, L500.4100, L501.9520 ####[facility] [address] [place], [address] GFR/1.73 sq M.predicted among non-blacks MDRD (S/P/Bld) [Vol rate/Area] 75 mL/min/{1.73_m2} Normal >[address] [facility] Comment on above: Order Comment: DR IRIS ONEILL TSH RFLX TO FT4 Result Comment: Non- GFR Calc Performed By: #### L 100.0100, L500.4050, L3110.0100, L3100.7870, L500.4100, L501.9520 ####[facility] [address] [place], [address] Globulin (S) [Mass/Vol] 3.3 g/dL Normal 2.2-4.2 [facility] Comment on above: Order Comment: DR IRIS ONEILL TSH RFLX TO FT4 Performed By: #### L 100.0100, L500.4050, L3110.0100, L3100.7870, L500.4100, L501.9520 ####[facility] [address] [place], [address] Glucose [Mass/Vol] 96 mg/dL Normal 74-106 [facility] Comment on above: Order Comment: DR IRIS ONEILL TSH RFLX TO FT4 Performed By: #### L 100.0100, L500.4050, L3110.0100, L3100.7870, L500.4100, L501.9520 ####[facility] [address] [place], [address] Potassium [Moles/Vol] 5.0 mmol/L Normal 3.5-5.1 [facility] Comment on above: Order Comment: DR IRIS ONEILL TSH RFLX TO FT4 Performed By: #### L 100.0100, L500.4050, L3110.0100, L3100.7870, L500.4100, L501.9520 ####[facility] [address] [place], [address] Sodium [Moles/Vol] 136 mmol/L Normal 136-145 [facility] Comment on above: Order Comment: DR IRIS ONEILL TSH RFLX TO FT4 Performed By: #### L 100.0100, L500.4050, L3110.0100, L3100.7870, L500.4100, L501.9520 ####[facility] [address] [place], [address] T PROT 7.1 g/dL Normal 6.4-8.[address] [facility] Comment on above: Order Comment: DR IRIS ONEILL TSH RFLX TO FT4 Performed By: #### L 100.0100, L500.4050, L3110.0100, L3100.7870, L500.4100, L501.9520 ####[facility] [address] [place], [address] Urea nitrogen [Mass/Vol] 11 mg/dL Normal 7-[address] [facility] Comment on above: Order Comment: DR IRIS ONEILL TSH RFLX TO FT4 Performed By: #### L 100.0100, L500.4050, L3110.0100, L3100.7870, L500.4100, L501.9520 ####[facility] [address] [place], [address] Lipid Profileon 06-20-2024 Cholesterol [Mass/Vol] 138 mg/dL Normal 200 [facility] Comment on above: Order Comment: DR IRIS ONEILL TSH RFLX TO FT4 Result Comment: <200 mg/dL Desirable 200-240 mg/dL Borderline >240 mg/dL High Risk Performed By: #### L 100.0100, L500.4050, L3110.0100, L3100.7870, L500.4100, L501.9520 ####[facility] [address] [place], [address] Cholesterol in HDL [Mass/Vol] 52 mg/dL Normal [facility] Comment on above: Order Comment: DR IRIS ONEILL TSH RFLX TO FT4 Result Comment: The drugs N-Acetylcysteine and Metamizole may falsely depress this assay. Reference Range HDL <40 mg/dL Low HDL Cholesterol HDL >or= 60 mg/dL High HDL Cholesterol Performed By: #### L 100.0100, L500.4050, L3110.0100, L3100.7870, L500.4100, L501.9520 ####[facility] [address] [place], [address] Cholesterol in LDL [Mass/Vol] 67 mg/dL Normal 0-[address] [facility] Comment on above: Order Comment: DR IRIS ONEILL TSH RFLX TO FT4 Performed By: #### L 100.0100, L500.4050, L3110.0100, L3100.7870, L500.4100, L501.9520 ####[facility] [address] [place], [address] Cholesterol in VLDL [Mass/Vol] 19 mg/dL Normal 5-[address] [facility] Comment on above: Order Comment: DR IRIS ONEILL TSH RFLX TO FT4 Performed By: #### L 100.0100, L500.4050, L3110.0100, L3100.7870, L500.4100, L501.9520 ####[facility] [address] [place], [address] Triglyceride [Mass/Vol] 93 mg/dL Normal [facility] Comment on above: Order Comment: DR IRIS ONEILL TSH RFLX TO FT4 Result Comment: The drugs N-Acetylcysteine and Metamizole may falsely depress this assay. Serum Triglycerides Reference Interval Normal <150 mg/dL Borderline high 150 - 199 mg/dL High 200 - 499 mg/dL Very High > or = 500 mg/dL Performed By: #### L 100.0100, L500.4050, L3110.0100, L3100.7870, L500.4100, L501.9520 ####[facility] [address] [place], [address] Thyroid Stim Hormone (TSH)on 06-20-2024 TSH 1.900 uIU/mL Normal 0.358-3.[address] [facility] Comment on above: Order Comment: DR IRIS ONEILL TSH RFLX TO FT4 Performed By: #### L 100.0100, L500.4050, L3110.0100, L3100.7870, L500.4100, L501.9520 ####[facility] [address] [place], [address] Basophil percentageOrdered B y: Jesus Alma Delia on 06-20-2023 Bilirubin [Mass/Vol] 0.60 mg/dL 0.20-1.00 [facility] Comment on above: For patients on eltr ombopag therapy, use of Dimension [place] TBIL is not recommended. Cholesterol [Mass/Vol] 128 mg/dL <200 [facility] Comment on above: <200 mg/dL Desirable 200-240 mg/dL Borderline >240 mg/dL High Risk Protein [Mass/Vol] 7.2 g/dL 6.4-8.2 [facility] Triglyceride [Mass/Vol] 103 mg/dL <199 [facility] Comment on above: The drugs N-Acetylcy steine and Metamizole may falsely depress this assay.Serum Triglycerides Reference Interval Normal <150 mg/dL Borderline high 150 - 199 mg/dL High 200 - 499 mg/dL Very High > or = 500 mg/dL Direct bilirubinOrdered By: Jesus Alma Delia on 06-20-2023 Bilirubin.direct [Mass/Vol] 0.19 mg/dL 0.00-0.[address] [facility] - Chemistry and C hemistry - challengeOrdered By: Jesus Alma Delia on 06-20-2023 ALP [Catalytic activity/Vol] 74 U/L 45-[address] [facility] ALT [Catalytic activity/Vol] 26 U/L 16-[address] [facility] Globulin (S) [Mass/Vol] 3.3 g/dL 2.2-4.2 [facility] Serum or plasma albumin lila urement (mass/volume)Ordered By: Jesus Alma Delia on 06-20-2023 Albumin [Mass/Vol] 3.9 g/dL 3.2-5.0 [facility] Serum or plasma cholesterol in HDL measurement (mass/volume)Ordered By: Jesus Alma Delia on 06-20-2023 Cholesterol in HDL [Mass/Vol] 46 mg/dL >[address] [facility] Comment on above: The drugs N-Acetylcy steine and Metamizole may falsely depress this assay. Reference Range HDL <40 mg/dL Low HDL Cholesterol HDL >or= 60 mg/dL High HDL Cholesterol Serum or plasma cholesterol in VLDL measurement (mass/volume)Ordered By: [facility] on [facility]23 Cholesterol in VLDL [Mass/Vol] 21 mg/dL 5-[address] [facility] Serum or plasma low density lipoprotein (LDL) cholesterol measurement (mass/volume)Ordered By: [facility] on 06-20-2023 Cholesterol in LDL [Mass/Vol] 61 mg/dL 0-[address] [facility] Thin prep Papanicolaou smear with manual screeningOrdered By: [facility] on 06-20-2023 Thin prep Papanicolaou smear with manual screening 20 U/L 15-[address] [facility] Absolute lymphocyte counton 07-29-2022 Lymphocytes Auto (Unsp spec) [#/Vol] 3.14 10*3/uL 0.83-4.[address] [facility] Work Phone: Basophil percentageon 2021 Basophil percentage 2.5 mg/dL 2.5-4.9 [facility] Work Phone: Basophils/100 WBC (Bld) 0.5 % 0-1 [facility] Work Phone: Chloride [Moles/Vol] 112 mmol/L 98-107 [facility] Work Phone: Eosinophils/100 WBC (Bld) 4.6 % 0-[address] [facility] Work Phone: Glucose [Mass/Vol] 91 mg/dL 74-106 [facility] Work Phone: Neutrophils (Bld) [#/Vol] 3.7 10*3/uL 2.0-7.[address] [facility] Work Phone: Neutrophils/100 WBC (Bld) 46.6 % 47-[address] [facility] Work Phone: Potassium [Moles/Vol] 3.8 mmol/L 3.5-5.1 [facility] Work Phone: Sodium [Moles/Vol] 142 mmol/L 136-145 [facility] Work Phone: WBC (Bld) [#/Vol] 7.9 10*3/uL 4.4-11.0 [facility] Work Phone: Blood erythrocytes count (nu mber/volume)on 07-29-2022 RBC (Bld) [#/Vol] 4.35 10*6/uL 4.6-6.2 [facility] Work Phone: Blood hemoglobin measurement (mass/volume)on 07-29-2022 Hemoglobin (Bld) [Mass/Vol] 13.5 g/dL 13.0-16.[address] [facility] Work Phone: Blood lymphocytes/100 leukoc yteson 07-29-2022 Lymphocytes/100 WBC (Bld) 39.7 % 19-[address] [facility] Work Phone: Blood monocytes/100 leukocyt eson 07-29-2022 Monocytes/100 WBC (Bld) 8.3 % 0-10 [facility] Work Phone: Blood platelet mean volumeon 07-29-2022 Platelet mean volume (Bld) [Entitic vol] 10.3 fL 6.2-12.[address] [facility] Work Phone: Determination of erythrocyte mean corpuscular volume (MCV)on 07-29-2022 MCV (RBC) [Entitic vol] 93.6 fL 80-94 [facility] Work Phone: Hematocrit Auto (Bld) [Volum e fraction]on 07-29-2022 Hematocrit (Bld) [Volume fraction] 40.7 % 40-[address] [facility] Work Phone: Laboratory - Chemistry and C hemistry - challengeon 07-29-2022 CO2 [Moles/Vol] 27.0 mmol/L 21.0-32.[address] [facility] Work Phone: Urea nitrogen/Creatinine [Mass ratio] 10.4 mg/mg 10-[address] [facility] Work Phone: Laboratory - Hematology and Cell countson 07-29-2022 Erythrocyte distribution width (RBC) [Entitic vol] 46.1 fL 35.1-43.[address] [facility] Work Phone: [phone] Erythrocyte distribution width (RBC) [Ratio] 13.4 % 11.6-14.[address] [facility] Work Phone: [phone] Immature granulocytes/100 WBC (Bld) 0.300 % 0.0-0.[address] [facility] Work Phone: [phone] Comment on above: IG% - Immature Granu locytes (promyelocytes, myelocytes and metamyelocytes) > 1% indicates that a LEFT SHIFT is Present. MCH (RBC) [Entitic mass] 31.0 pg 27.0-32.[address] [facility] Work Phone: [phone] Nucleated RBC/100 WBC (Bld) [Ratio] 0 % 0-[address] [facility] Work Phone: [phone] MCHC Auto (RBC) [Mass/Vol]on 07-29-2022 MCHC (RBC) [Mass/Vol] 33.2 g/dL 32-36 [facility] Work Phone: [phone] No Panel Informationon 07-29 Estimated Creatinine Clearance Calc 99.92 ml/min [facility] Work Phone: [phone] Estimated GFR (MDRD) Amer 119 mL/min >[address] [facility] Work Phone: [phone] Comment on above: GFR Calc Estimated GFR (MDRD) Non-Af Amer 98 mL/min >[address] [facility] Work Phone: [phone] Comment on above: Non- GFR Calc Platelets bldon 07-29-2022 Platelets (Bld) [#/Vol] 234 10*3/uL 150-450 [facility] [facility] Work Phone: [phone] Serum or plasma calcium lila urement (mass/volume)on 07-29-2022 Calcium [Mass/Vol] 8.3 mg/dL 8.5-10.1 [facility] Work Phone: [phone] Serum or plasma creatinine m easurement (mass/volume)on 07-29-2022 Creatinine [Mass/Vol] 0.87 mg/dL 0.70-1.30 [facility] Work Phone: Comment on above: The validity of the calculated GFR & GFRAA in patients over 70 years has not been determined. Clinical correlation is essential. Serum or plasma urea nitroge n measurement (mass/volume)on 07-29-2022 Urea nitrogen [Mass/Vol] 9 mg/dL 7-[address] [facility] Work Phone: Thin prep Papanicolaou smear with manual screeningon 07-29-2022 Thin prep Papanicolaou smear with manual screening 3 5-[address] [facility] Work Phone: Basophil percentageon 2021 Bilirubin [Mass/Vol] 0.50 mg/dL 0.20-1.00 [facility] Work Phone: Comment on above: For patients on eltr ombopag therapy, use of Dimension [place] TBIL is not recommended. Cholesterol [Mass/Vol] 131 mg/dL <200 [facility] Work Phone: Comment on above: <200 mg/dL Desirable 200-240 mg/dL Borderline >240 mg/dL High Risk Protein [Mass/Vol] 5.8 g/dL 6.4-8.2 [facility] Work Phone: [phone] Triglyceride [Mass/Vol] 94 mg/dL <199 [facility] Work Phone: Comment on above: The drugs N-Acetylcy steine and Metamizole may falsely depress this assay.Serum Triglycerides Reference Interval Normal <150 mg/dL Borderline high 150 - 199 mg/dL High 200 - 499 mg/dL Very High > or = 500 mg/dL Laboratory - Chemistry and C hemistry - challengeon 07-28-2022 ALP [Catalytic activity/Vol] 64 U/L 45-[address] [facility] Work Phone: [phone] ALT [Catalytic activity/Vol] 71 U/L 16-[address] [facility] Work Phone: [phone] Globulin (S) [Mass/Vol] 2.7 g/dL 2.2-4.2 [facility] Work Phone: Magnesium [Mass/Vol] 2.1 mg/dL 1.6-2.6 [facility] Work Phone: [phone] No Panel Informationon 07-28 Thyroid Stimulating Hormone (TSH) 1.96 uIU/mL 0.358-3.[address] [facility] Work Phone: [phone] Troponin I High Sensitivity 28216 pg/mL 3.0-78.[address] [facility] Work Phone: Comment on above: Please Note: New Angélica t Units and Gender Specific Reference Ranges. For more information see Policy Stat Procedure [place] High Sensitivity Troponin (TNIH) and attachments. Serum or plasma albumin lila urement (mass/volume)on 07-28-2022 Albumin [Mass/Vol] 3.1 g/dL 3.2-5.0 [facility] Work Phone: [phone] Serum or plasma albumin/glob ulin mass ratioon 07-28-2022 Albumin/Globulin [Mass ratio] 1.1 {ratio} 0.9-2.[address] [facility] Work Phone: [phone] Serum or plasma cholesterol in HDL measurement (mass/volume)on 07-28-2022 Cholesterol in HDL [Mass/Vol] 40 mg/dL >[address] [facility] Work Phone: Comment on above: The drugs N-Acetylcy steine and Metamizole may falsely depress this assay. Reference Range HDL <40 mg/dL Low HDL Cholesterol HDL >or= 60 mg/dL High HDL Cholesterol Serum or plasma cholesterol in VLDL measurement (mass/volume)on 07-28-2022 Cholesterol in VLDL [Mass/Vol] 19 mg/dL 5-[address] [facility] Work Phone: [phone] Serum or plasma low density lipoprotein (LDL) cholesterol measurement (mass/volume)on 07-28-2022 Cholesterol in LDL [Mass/Vol] 72 mg/dL 0-[address] [facility] Work Phone: [phone] Thin prep Papanicolaou smear with manual screeningon 07-28-2022 Thin prep Papanicolaou smear with manual screening 287 U/L 15-[address] [facility] Work Phone: [phone] Absolute lymphocyte counton 07-27-2022 Lymphocytes Auto (Unsp spec) [#/Vol] 4.14 10*3/uL 0.83-4.[address] [facility] Work Phone: Basophil percentageon 2021 Basophils/100 WBC (Bld) 0.7 % 0-1 [facility] Work Phone: Chloride [Moles/Vol] 107 mmol/L 98-107 [facility] Work Phone: Eosinophils/100 WBC (Bld) 6.4 % 0-[address] [facility] Work Phone: Glucose [Mass/Vol] 143 mg/dL 74-106 [facility] Work Phone: Comment on above: Fasting Glucose resu lt greater than or equal to 126 mg/dL suggests DIABETES MELLITUS per A.D.A. criteria. Neutrophils (Bld) [#/Vol] 4.4 10*3/uL 2.0-7.[address] [facility] Work Phone: Neutrophils/100 WBC (Bld) 43.4 % 47-[address] [facility] Work Phone: Potassium [Moles/Vol] 3.9 mmol/L 3.5-5.1 [facility] Work Phone: Sodium [Moles/Vol] 140 mmol/L 136-145 [facility] Work Phone: WBC (Bld) [#/Vol] 10.1 10*3/uL 4.4-11.0 [facility] Work Phone: Blood erythrocytes count (nu mber/volume)on 07-27-2022 RBC (Bld) [#/Vol] 5.41 10*6/uL 4.6-6.2 [facility] Work Phone: Blood hemoglobin measurement (mass/volume)on 07-27-2022 Hemoglobin (Bld) [Mass/Vol] 16.8 g/dL 13.0-16.[address] [facility] Work Phone: Blood lymphocytes/100 leukoc yteson 07-27-2022 Lymphocytes/100 WBC (Bld) 41.0 % 19-[address] [facility] Work Phone: Blood monocytes/100 leukocyt eson 07-27-2022 Monocytes/100 WBC (Bld) 8.2 % 0-10 [facility] Work Phone: Blood platelet mean volumeon 07-27-2022 Platelet mean volume (Bld) [Entitic vol] 10.0 fL 6.2-12.[address] [facility] Work Phone: Determination of erythrocyte mean corpuscular volume (MCV)on 07-27-2022 MCV (RBC) [Entitic vol] 92.6 fL 80-94 [facility] Work Phone: Hematocrit Auto (Bld) [Volum e fraction]on 07-27-2022 Hematocrit (Bld) [Volume fraction] 50.1 % 40-[address] [facility] Work Phone: Laboratory - Chemistry and C hemistry - challengeon 07-27-2022 CO2 [Moles/Vol] 28.0 mmol/L 21.0-32.[address] [facility] Work Phone: Urea nitrogen/Creatinine [Mass ratio] 10.9 mg/mg 10-[address] [facility] Work Phone: Laboratory - Hematology and Cell countson 07-27-2022 Erythrocyte distribution width (RBC) [Entitic vol] 45.3 fL 35.1-43.[address] [facility] Work Phone: Erythrocyte distribution width (RBC) [Ratio] 13.3 % 11.6-14.[address] [facility] Work Phone: Immature granulocytes/100 WBC (Bld) 0.300 % 0.0-0.[address] [facility] Work Phone: Comment on above: IG% - Immature Granu locytes (promyelocytes, myelocytes and metamyelocytes) > 1% indicates that a LEFT SHIFT is Present. MCH (RBC) [Entitic mass] 31.1 pg 27.0-32.[address] [facility] Work Phone: Nucleated RBC/100 WBC (Bld) [Ratio] 0 % 0-[address] [facility] Work Phone: [phone] MCHC Auto (RBC) [Mass/Vol]on 07-27-2022 MCHC (RBC) [Mass/Vol] 33.5 g/dL 32-36 [facility] Work Phone: No Panel Informationon 07-27 Activated Clotting Time 329 sec 74-137 [facility] Work Phone: [phone] Estimated Creatinine Clearance Calc 69.64 ml/min [facility] Work Phone: [phone] Estimated GFR (MDRD) Amer 82 mL/min >[address] [facility] Work Phone: [phone] Comment on above: GFR Calc Estimated GFR (MDRD) Non-Af Amer 68 mL/min >[address] [facility] Work Phone: [phone] Comment on above: Non- GFR Calc Troponin I High Sensitivity 7 pg/mL 3.0-78.[address] [facility] Work Phone: [phone] Comment on above: Please Note: New Angélica t Units and Gender Specific Reference Ranges. For more information see Policy Stat Procedure [place] High Sensitivity Troponin (TNIH) and attachments. Platelets bldon 07-27-2022 Platelets (Bld) [#/Vol] 335 10*3/uL 150-[address] [facility] Work Phone: [phone] Serum or plasma C reactive p rotein measurement (mass/volume)on 07-27-2022 CRP [Mass/Vol] mg/L 0.0-3.[address] [facility] Work Phone: [phone] Comment on above: C-Reactive Protein ( CRP) provides useful information for thediagnosis, therapy and monitoring of inflammatory processesand associated diseases. For the evaluation of Relative Riskfor Cardiovascular Disease, a High Sensitivity CRP (HSCRP)should be ordered. Serum or plasma calcium lila urement (mass/volume)on 07-27-2022 Calcium [Mass/Vol] 9.7 mg/dL 8.5-10.1 [facility] Work Phone: [phone] Serum or plasma creatinine m easurement (mass/volume)on 07-27-2022 Creatinine [Mass/Vol] 1.19 mg/dL 0.70-1.30 [facility] Work Phone: Comment on above: The validity of the calculated GFR & GFRAA in patients over 70 years has not been determined. Clinical correlation is essential. Serum or plasma urea nitroge n measurement (mass/volume)on 07-27-2022 Urea nitrogen [Mass/Vol] 13 mg/dL 7-[address] [facility] Work Phone: Thin prep Papanicolaou smear with manual screeningon 07-27-2022 Thin prep Papanicolaou smear with manual screening 5 5-[address] [facility] Work Phone: Whole blood hemoglobin A1c/t otal hemoglobin ratio (mass fraction)on 07-27-2022 HbA1c (Bld) [Mass fraction] 5.3 % 3.8-5.[address] [facility] Work Phone: Comment on above: Normal < 5.7 % Predi abetic 5.7 - 6.4 % Diabetic >or= 6.5 % Please note range changes. Vital Signs Date Time Vital Sign Value Performing Clinician Faci lity 05-15-2025 10:05-0400 Body height 177.8 cm [employer] Work Phone: [facility] 05-15-2025 10:05-0400 Body mass index (BMI) [Ratio] 22.4 kg/m2 [employer] Work Phone: [facility] 05-15-2025 10:05-0400 Body weight 70.76 kg [employer] Work Phone: [facility] 05-15-2025 10:05-0400 Diastolic blood pressure 71 mm[Hg] [employer] Work Phone: [facility] 05-15-2025 10:05-0400 Heart rate 64 /min [employer] Work Phone: [facility] 05-15-2025 10:05-0400 Respiratory rate 16 /min [employer] Work Phone: [facility] 05-15-2025 10:05-0400 Systolic blood pressure 109 mm[Hg] URBAN BOBBI Work Phone: [facility] 06-20-2023 15:07-0400 Body height 177.8 cm Out [facility] 06-20-2023 15:07-0400 Body mass index (BMI) [Ratio] 22.2 kg/m2 Out [facility] 06-20-2023 15:07-0400 Body weight 70.3 kg Out [facility] 06-20-2023 15:07-0400 Diastolic blood pressure 67 mm[Hg] Out [facility] 06-20-2023 15:07-0400 Heart rate 76 /min Out [facility] 06-20-2023 15:07-0400 Respiratory rate 14 /min Out [facility] 06-20-2023 15:07-0400 Systolic blood pressure 106 mm[Hg] Out [facility] 07-29-2022 11:06-0500 Heart rate 58 /min Dr. Yo Nova Work Phone: [facility] Work Phone: 07-29-2022 10:46-0500 Diastolic blood pressure 65 mm[Hg] Dr. Yo Nova Work Phone: [facility] Work Phone: 07-29-2022 10:46-0500 Respiratory rate 16 /min Dr. Yo Nova Work Phone: [facility] Work Phone: 07-29-2022 10:46-0500 SaO2% (BldA) [Mass fraction] 98 % Dr. Yo Nova Work Phone: [facility] Work Phone: 07-29-2022 10:46-0500 Systolic blood pressure 99 mm[Hg] Dr. Yo Nova Work Phone: [facility] Work Phone: 07-29-2022 08:01-0500 Body temperature 98.4 [degF] Dr. Yo Nova Work Phone: [facility] Work Phone: 07-29-2022 05:57-0500 Body weight 71.[address] Yo Nova Work Phone: [facility] Work Phone: 07-27-2022 12:30-0500 Inhaled oxygen flow rate 2 L/min Dr. oY Nova Work Phone: [facility] Work Phone: 07-27-2022 09:37-0500 Body height 177.8 cm [facility] Work Phone: 07-27-2022 09:37-0500 Body mass index (BMI) [Ratio] 21.4 kg/m2 [facility] Work Phone: 07-27-2022 09:12-0500 Body temperature 97.2 [degF] [facility] Work Phone: 07-27-2022 09:12-0500 Diastolic blood pressure 77 mm[Hg] [facility] Work Phone: 07-27-2022 09:12-0500 Heart rate 47 /min [facility] Work Phone: 07-27-2022 09:12-0500 Respiratory rate 15 /min [facility] Work Phone: 07-27-2022 09:12-0500 SaO2% (BldA) [Mass fraction] 100 % [facility] Work Phone: 07-27-2022 09:12-0500 Systolic blood pressure 94 mm[Hg] [facility] Work Phone: 07-27-2022 08:00-0500 Body weight 67.8 kg [facility] Work Phone: Encounters Encounter Date Encounter Type Care Provider Facility Start: 05-15-2025 End: 05-15-2025 Patient encounter procedure Javier Dale Long CERAMIST-C -[facility] Work Phone: Start: 05-15-2025 End: 05-15-2025 ambulatory URBAN MARTINES Work Phone: -[facility] Start: 05-14-2025 End: 05-14-2025 ambulatory URBAN MARTINES Work Phone: -Laboratory Start: 05-14-2025 End: 05-14-2025 Patient encounter procedure Javier Hunter Mercedes CERAMIST-C -Laboratory Work Phone: Start: 05-14-2025 End: 05-14-2025 ambulatory Javier Long CERAMIST Facility:[facility] Start: 10-24-2024 End: 10-24-2024 Emergency department patient visit Mary Ellenus Altamiranoruth Facility:[facility] Start: 07-11-2024 End: 07-11-2024 ambulatory GARCIA ADAIR [facility] Start: 06-20-2024 End: 06-20-2024 ambulatory GARCIA ADAIR Facility:[facility] Start: 06-20-2023 End: 06-20-2023 ambulatory [facility] Town [facility] Work Phone: Start: 06-20-2023 End: 06-20-2023 Patient encounter procedure Out [place] Doctor [facility] Work Phone: Start: 07-29-2022 Non-patient / Non-visit Dr. Love Work Phone: [facility] Start: 07-29-2022 Non-patient / Non-visit Dr. Love Work Phone: [facility] Start: 07-28-2022 Non-patient / Non-visit Dr. Love Work Phone: [facility] Start: 07-27-2022 Non-patient / Non-visit Dr. Love Work Phone: [facility] Start: 07-27-2022 Non-patient / Non-visit Dr. Love Work Phone: [facility] Start: 07-27-2022 End: 07-29-2022 Evaluation and management of inpatient [facility] Procedures Date Procedure Procedure Detail Performing Clinician Start: 07-27-2022 History of placement of stent for coronary artery disease History of coronary artery stent placement Javier Long CERAMISTWilliamC Comment on above: [id number] w/ 3.0 x 38 mm Resolute [place] LATRICE 07/27/22 Start: 07-27-2022 Plain chest X-ray Plan of Treatment Date Care Activity Detail Author Start: 05-15-2025 [facility] results [facility] Start: 07-29-2022 Patient referral [facility] Work Phone: Start: 07-29-2022 Patient discharge [facility] Work Phone: Start: 07-28-2022 Care planning and pr oblem solving actions [facility] Work Phone: Start: 07-27-2022 Ambulation without limitation [facility] Work Phone: Start: 07-27-2022 Provision of activity privileges [facility] Work Phone: Start: 07-27-2022 Cardiac monitoring [facility] Work Phone: Start: 07-27-2022 Cardiac rehabilitation - phase [address] [facility] Work Phone: Start: 07-27-2022 Cardiac rehabilitation - phase [address] [facility] Work Phone: Start: 07-27-2022 Notification of physician [facility] Work Phone: Start: 07-27-2022 Systemic arterial pr essure monitoring [facility] Work Phone: Start: 07-27-2022 Taking patient vital signs [facility] Work Phone: Start: 07-27-2022 Vascular disease risk assessment [facility] Work Phone: Start: 07-27-2022 Vital signs measurements [facility] Work Phone: Start: 07-27-2022 Catheterization of vein [facility] Work Phone: Start: 07-27-2022 Medication not administered [facility] Work Phone: Start: 07-27-2022 Care planning and pr oblem solving actions [facility] Work Phone: Start: 07-27-2022 Following clinical p athway protocol [facility] Work Phone: Start: 07-27-2022 Assessment of risk o f venous thromboembolism [facility] Work Phone: Start: 07-27-2022 Insertion of cathete r into peripheral vein [facility] Work Phone: Start: 07-27-2022 Measuring intake and output [facility] Work Phone: Start: 07-27-[address] [facility] Work Phone: Start: 07-27-2022 Providing care accor ding to standard [facility] Work Phone: Start: 07-27-2022 Referral to service [facility] Work Phone: Start: 07-27-2022 Tobacco use cessation education [facility] Work Phone: Start: 07-27-2022 Verification routine [facility] Work Phone: Start: 07-27-2022 Admission procedure [facility] Work Phone: Start: 07-27-[address] [facility] Work Phone: Start: 07-27-2022 End: 07-27-2022 [facility] Work Phone: Hemoglobin A1c/Hemog lobin.total in Blood [facility] Work Phone: Hepatic function panel [facility] Lipid 1996 panel - S jenniffer or Plasma [facility] Patient referral [facility] Work Phone: Immunizations Immunization Date Immunization Notes Care Provider Fa odilonty 08-11-2021 Covid (Pfizer) Dr. Yo Torres nnedy Work Phone: [facility] Payers Date Payer Category Payer Self-pay 2024 Unknown [id number] Private Health Insurance [id number] Unknown [id number] Unknown [id number] Unknown [id number] [id number] Unknown [id number] [id number] [id number] Unknown [id number] [id number] Unknown [id number] [id number] [id number] Social History Date Type Detail Facility Start: 07-27-2022 End: 06-20-2023 Tobacco smoking status NHIS Unknown if ever smoked [facility] Start: 1970 Sex Assigned At Male [facility] Start: 10-24-2024 Tobacco smoking stat us AKIS Current Light tobacco smoker [facility] Medical Equipment Procedure Code Equipment Code Equipment Origin al Text Equipment Identifier Dates Drug-eluting coronary artery stent, [id number] lymer-coated [id number] FDA Start: 07-27-2022 Goals Date Patient Goal Desired Activity /State Functional Status Date Assessment Result Facility 07-29-2022 Functional status Ambulates;Up ad jose;Corrie ir [facility] Work Phone: Mental Status Date Assessment Result Facility 07-28-2022 Cognitive function Voice/Name [facility] Work Phone: 07-27-2022 Cognitive function Level Of Cons ciousness Awake;Alert;Appropriate;Follow s Commands [facility] Work Phone: Evaluation note 05-15-2025 Note Date & Type Note Facility 05-15-2025 Evaluation note Diagnosis Onset Date Resolution Cardiomyopathy, ischemic chronic May 15, 2025 9:58am History of coronary artery stent placement July 27, 2022 chronic May 15, 2025 9:58am [facility] Work Phone: Evaluation note 07-27-2022 Note Date & Type Note Facility 07-27-2022 Evaluation note Diagnosis Onset Date Cardiomyopathy, ischemic acu te History of coronary artery stent placement July 27, [address] [facility] Work Phone: Evaluation note 07-27-2022 Note Date & Type Note Facility 07-27-2022 Evaluation note Diagnosis Onset Date Resolution Cardiomyopathy, ischemic acute May 15, 2025 9:58am History of coronary artery stent placement July 27, 2022 acute May 15, 2025 9:58am [employer] Work Phone: Evaluation note Note Date & Type Note Facility Evaluation note No assessment information availa [facility] Work Phone: Evaluation note Note Date & Type Note Facility Evaluation note Diagnosis Onset Date Bradycardia acute Chest pain acute Erythrocytosis acute Hyperglycemia acute NSTEMI (non-ST elevated myoc ardial infarction) [facility] Work Phone: Reason for referral (narrative) Note Date & Type Note Facility Reason for referral (narrative) No reason for referral information available [employer] Work Phone: Chief Complaint and Reason for Visit Chief Complaint UNSTABLE ANGINA Chief Complaint UNSTABLE ANGINA UNSTABLE ANGINA UNSTABLE ANGINA UNSTABLE ANGINA UNSTABLE ANGINA UNSTABLE ANGINA Reason for Visit Bradycardia Chest pain Erythrocytosis Hyperglycemia NSTEMI (non-ST elevated myocardial infarction) Chief Complaint 9 M FU Reason for Visit Cardiomyopathy, isch emic History of coronary artery stent placement Chief Complaint Admit Date INT LABS May 14, 2025 7:43am SOB, sweats, see Clinical Note May 15, 2025 9:58am Reason for Visit Admit Date Cardiomyopathy, ischemic May 15, 2025 9:58am History of coronary artery stent placeme nt May 15, 2025 9:58am Advance Directives No Advanced Directives Records Found Advance Directive Response Recorded Date/ Time Living Will No July 27 8:05am Power of Shopper Marketing Manager No July 27, 2022 8:05am Advance Directive Response Recorded Date/ Time Living Will No July 27 9:38am Power of Shopper Marketing Manager No July 27, 2022 9:38am Advance Directive Response Recorded Date/ Time Living Will No July 27 10:38am Power of Shopper Marketing Manager No July 27, 2022 10:38am Family History No Family History Records Found Relationship Condition Age at Onset Recorded Date/T jennifer mother Lymphoma Unknown Leukemia Unknown father Malignant neoplasm of esophagus Unknown Coronary artery disease Unknown Summary Purpose Additional Source Comments Goals (unrecognized section and content) Goals may be documented in a n alternate sectionGoals may be documented in an alternate sectionGoals may be documented in an alternate sectionGoals may be documented in an alternate section Care Teams (unrecognized sec tion and content) Team Status: Active Member Role Status Dates Dr. Irvin Loo DO Family Provider Active Out [facility] Doctor Primary Care Provider Active Team Status: Inactive Member Role Status Dates Out [facility] Doctor Primary Care Provider, Referring Pr ovider Active Dr. Jesus Flannery MD Attending Provider Active Team Status: Inactive Member Role Status Dates Out [facility] Doctor Primary Care Provider Active Dr. Jesus Flannery MD Attending Provider, Referring Pro vider Active Team Status: Active Member Role/Relationship Status Dates Out [facility] Doctor Primary Care Provider Active Team Status: Active Member Role/Relationship Status Dates BOBBI DUGGAN Primary Care Provider Active Star t: May 14, 2025 Javier Long CERAMIST, CERAMIST-C Attending Provider Active S tart: May 14, 2025 Javier Long CERAMIST, CERAMIST-C Referring Provider Active S tart: May 14, 2025 Team Status: Inactive Member Role/Relationship Status Dates Out [facility] Doctor Primary Care Provider Active Start: May 15, 2025 End: May 15, 2025 Out of [facility] Doctor Referring Provider Active Sta rt: May 15, 2025 End: May 15, 2025 Javier Long CERAMIST, CERAMIST-C Attending Provider Active S tart: May 15, 2025 End: May 15, 2025 Team Status: Inactive Member Role/Relationship Status Dates URBANRACHEL LOZOYAROSALEE Primary Care Provider Active Star t: May 14, 2025 End: May 14, 2025 Javier Long CERAMIST, CERAMIST-C Attending Provider Active S tart: May 14, 2025 End: May 14, 2025 Javier Long CERAMIST, CERAMIST-C Referring Provider Active S tart: May 14, 2025 End: May 14, 2025 (unrecognized sect ion and content) No Status Records Found INFORMATION SOURCE (unrecogn ized section and content) DATE CREATED AUTHOR 05/25/2025 [facility] FOR RECORDS PERTAINING TO PATIENTS WHO [...] BE BASED ON THE PRIMARY CLINICAL RECORDS. [employer] provides no warranty or guarantee of the accuracy or completeness of information in this document.
[2025-07-01 08:50] LABS: AST(SGOT) 23 U/L (<=37); Alanine Aminotransfer ALT/SGPT 17 U/L (<=46); Albumin, Serum 4.3 g/dL (3.5-5.0); Alkaline Phosphatase 68 U/L (40-129); Bilirubin, Direct 0.23 mg/dL (0.00-0.30); Cholesterol 158 mg/dL (<=200); Globulin 2.5 g/dL (2.2-4.2); Low Density Lipoprotein Calc. 87 mg/dL; Triglycerides 102 mg/dL; Very Low Density Lipoprotein 20 mg/dL (5-40); cholesterol:hdl ratio screen 3.00
== END | disposition home or self-care (01) ==
LOC: LAB 07:55
PROVIDERS: Referring Provider Nurse Practitioner Family; Visit Provider Nurse Practitioner Family
DX: I25.5 Ischemic cardiomyopathy (principal); Z95.5 Presence of coronary angioplasty implant and graft
CPT/HCPCS: 36415; 80061; 80076